=== PATIENT | male | born 1940 | race Caucasian/White ===

== ENCOUNTER 2017-06-30 09:31 | Emergency (ER) | payer MEDICARE ==
[~2017-06-30] VITALS: Ht 167.6 cm; Wt 77.0 kg
[~2017-06-30 09:31] MED LIST: KONS520C PO; LEVO50TA51 PO; LOVA40TA OR; TAB-TAB PO; TERA5CAP34 PO
[2017-06-30 09:35] VITALS: BP 123/62; PULSE 54; RESP 18; TEMP 97; O2SAT 99
[2017-06-30] MEDS ORDERED: LEVO50TA4 PO (10:04)
[2017-06-30] MEDS ORDERED: LOVA40TA PO (10:04)
[2017-06-30] MEDS ORDERED: TERA5CAP3 PO (10:04)
[2017-06-30] MEDS ORDERED: ALLO300T2 PO (10:04)
[2017-06-30 10:38] LABS: AUTOMATED NEUTROPHIL # 9.9 TH/MM3 (1.8-7.7); BASOPHIL # 1.1 TH/MM3 (0-0.2); BASOPHIL % 8.8 % (0.0-2.0); EOSINOPHIL % 0.2 % (0.0-4.0); LYMPH % 6.5 % (9.0-44.0); LYMPHOCYTE # 0.8 TH/MM3 (1.0-4.8); MEAN CELL VOLUME 87.6 FL (80.0-100.0); MEAN CORPUSCULAR HEMOGLOBIN 29.9 PG (27.0-34.0); MEAN CORPUSCULAR HGB CONC 34.1 % (32.0-36.0); MEAN PLATELET VOLUME 7.8 FL (7.0-11.0); MONO % 4.6 % (0.0-8.0); MONOCYTE # 0.6 TH/MM3 (0-0.9); NEUT % 79.9 % (16.0-70.0); PLATELET COUNT 207 TH/MM3 (150-450); RED BLOOD COUNT 4.68 MIL/MM3 (4.50-5.90); RED CELL DISTRIBUTION WIDTH 13.2 % (11.6-17.2); WHITE BLOOD COUNT 12.4 TH/MM3 (4.0-11.0)
[2017-06-30 10:44] LABS: BILIRUBIN, URINE NEG (NEG); BLOOD, URINE TRACE (NEG); GLUCOSE,URINE NEG (NEG); KETONE, URINE NEG (NEG); NITRITE,URINE NEG (NEG); PH, URINE 5.5 (5.0-8.5); URINE LEUKOCYTE ESTERASE NEG (NEG)
[2017-06-30 10:46] LABS: CHLORIDE 105 MEQ/L (98-107); SODIUM (NA) 137 MEQ/L (136-145)
[2017-06-30 10:50] LABS: HYALINE CAST, URINE 0-2 /lpf (RARE); MUCUS URINE FEW /lpf (OCC); URINE COLOR YELLOW (YELLW/STRAW)
[2017-06-30 10:50] LABS: CALCIUM 8.7 MG/DL (8.5-10.1)
[2017-06-30 10:51] LABS: ALBUMIN 4.1 GM/DL (3.4-5.0); BICARBONATE 25.4 MEQ/L (21.0-32.0); BLOOD UREA NITROGEN 28 MG/DL (7-18); GLUCOSE,RANDOM 141 MG/DL (74-106)
[2017-06-30 10:52] LABS: BACTERIA, URINE FEW /hpf; SQUAMOUS EPITHELIAL CELL URINE 0-5 /hpf (0-5); WBC, URINE 0-2 /hpf (0-5)
[2017-06-30 10:53] LABS: ALT (GPT) 24 U/L (12-78); AST (GOT) 30 U/L (15-37)
[2017-06-30 10:54] LABS: GLOMERULAR FILTRATION RATE 32 ML/MIN (>89)
[2017-06-30 10:55] LABS: TOTAL BILIRUBIN ADULT 0.5 MG/DL (0.2-1.0); TOTAL PROTEIN 7.5 GM/DL (6.4-8.2)
[2017-06-30 10:56] LABS: ALKALINE PHOSPHATASE 88 U/L (45-117)
[2017-06-30] MEDS ORDERED: ONDANSETRON HCL 4 MG/2 ML VIAL IV PUSH ONE (11:00)
[2017-06-30] MEDS ORDERED: SODIUM CHLORID 0.9% 500 ML INJ 500 ML IV ONE (11:00)
[2017-06-30 11:02] LABS: BANDS 5 % (0-6); LYMPHOCYTES 8 % (9-44); MONOCYTES 7 % (0-8); NEUTROPHIL # MANUAL DIFF 10.5 TH/MM3 (1.8-7.7); POLYS (SEG NEUTROPHILS) 80 % (16-70)
[2017-06-30 11:05] VITALS: BP 125/63; PULSE 52; RESP 16; O2SAT 98
--- NOTE | 2017-06-30 11:11 | PD ---
HPI Chief Complaint: Abdominal Pain Time Seen by Provider: 10:50 Travel History International Travel<30 days: No Contact w/Intl Traveler<30days: No Traveled to known affect area: No History of Present Illness HPI 76 year old male presents to ED for evaluation of 1010 diffuse crampy abdominal pain onset 0200 today which woke patient from sleep associated with nausea and vomiting X 6 episodes today. The patient had underwent a colonoscopy yesterday with no concerning findings per the patients . After the procedure , the patient went home and ate porkchop, mashed potatoes with gravy, corn and prunes which is a normal meal for him. ate same meal at home with no illness. He denies hematochezia, chest pain, diarrhea and melena. He has been passing gas rectally and has small BM this morning which was normal. He has had similar pain like this in the past which is relieved with defecation. He also has had a non productive cough onset last night, no fevers. Risk Factors:Colonoscopy yesterday Modifying Factors:[None] Associated sign and symptoms: Abdominal pain with nausea/vomiting. PFSH Past Medical History Arthritis: Yes Cancer: Yes ( SKIN, RIGHT ARM) High Cholesterol: Yes Diabetes: No Diminished Hearing: No Gout: Yes Hiatal Hernia: No Hypertension: Yes Thyroid Disease: Yes Influenza Vaccination: Yes Past Surgical History Abdominal Surgery: Yes (APPEND.) Appendectomy: Yes Cardiac Surgery: No Ear Surgery: No Eye Surgery: Yes Genitourinary Surgery: Yes (RIGHT NEPHRECTOMY) Oral Surgery: Yes (DENTAL SX) Pacemaker: No Thoracic Surgery: No Other Surgery: Yes Social History Alcohol Use: No (FORMERLY) Tobacco Use: No Substance Use: No Allergies-Medications (Allergen,Severity, Reaction): Coded Allergies: acetaminophen (Verified Allergy, Unknown, Patient denies , 06/30/17) Sulfa (Sulfonamide Antibiotics) (Verified Adverse Reaction, Severe, Urinary retention, 06/30/17) amoxicillin (Verified Adverse Reaction, Severe, Urinary retention , 06/30/17 ) codeine (Verified Adverse Reaction, Severe, Urinary retention , 06/30/17) diphenhydramine (Verified Adverse Reaction, Severe, Urinary retention , 06/30/17) oxycodone (Verified Adverse Reaction, Severe, "Wigs out", 06/30/17) valdecoxib (Verified Adverse Reaction, Severe, Urinary retention , 06/30/17) clavulanic acid (Verified Adverse Reaction, Unknown, 06/30/17) states from antibiotic eye gtt Reported Meds & Prescriptions Reported Meds & Active Scripts Active Zofran Odt (Ondansetron Odt) 4 Mg Tab 4 Mg SL Q6HR PRN Reported Allopurinol 300 Mg Tab 300 Mg PO DAILY Lovastatin 40 Mg Tab 40 Mg PO DAILY Levothyroxine (Levothyroxine Sodium) 50 Mcg Tab 50 Mcg PO DAILY Terazosin (Terazosin HCl) 5 Mg Cap 5 Mg PO HS Review of Systems Except as stated in HPI: all other systems reviewed are Neg Physical Exam Narrative GENERAL: Elderly man in mild distress in ED, at bedside. SKIN: Warm and dry. HEAD: Atraumatic. Normocephalic. EYES: Pupils equal and round. No scleral icterus. No injection or drainage. ENT: No nasal bleeding or discharge. Mucous membranes pink and moist. NECK: Trachea midline. No JVD. CARDIOVASCULAR: Regular rate and rhythm. RESPIRATORY: No accessory muscle use. Clear to auscultation. Breath sounds equal bilaterally. GASTROINTESTINAL: Abdomen soft nondistended, tenderness to palpation to right upper abdomen, no rebound, no guarding. Hepatic and splenic margins not palpable. MUSCULOSKELETAL: Extremities without clubbing, cyanosis, or edema. No obvious deformities. NEUROLOGICAL: Awake and alert. No obvious cranial nerve deficits. Motor grossly within normal limits. Five out of 5 muscle strength in the arms and legs. Normal speech. PSYCHIATRIC: Appropriate mood and affect; insight and judgment normal. Data Data Last Documented VS Vital Signs Date Time Temp Pulse Resp B/P (MAP) Pulse Ox O2 Delivery O2 Flow Rate FiO2 06/30/17 12:25 58 16 142/73 (96) 98 Room Air 06/30/17 09:35 97.0 Orders Orders Complete Blood Count With Diff (06/30/17 10:01) Comprehensive Metabolic Panel (06/30/17 10:01) Urinalysis - C+S If Indicated (06/30/17 10:01) Iv Access Insert/Monitor (06/30/17 10:01) Oxygen Administration (06/30/17 10:01) Oximetry (06/30/17 10:01) Lipase (06/30/17 10:01) Ondansetron Inj (Zofran Inj) (06/30/17 11:00) Sodium Chlorid 0.9% 500 Ml Inj (Ns 500 M (06/30/17 11:00) Lactic Acid (06/30/17 10:53) Ct Abd/Pel W/O Iv Contrast (06/30/17 10:52) Morphine Inj (Morphine Inj) (06/30/17 11:45) Us Abdomen Gallbladder (06/30/17 12:33) Labs Laboratory Tests Test 06/30/17 10:20 06/30/17 10:35 06/30/17 11:40 White Blood Count 12.4 TH/MM3 Red Blood Count 4.68 MIL/MM3 Hemoglobin 14.0 GM/DL Hematocrit 41.0 % Mean Corpuscular Volume 87.6 FL Mean Corpuscular Hemoglobin 29.9 PG Mean Corpuscular Hemoglobin Concent 34.1 % Red Cell Distribution Width 13.2 % Platelet Count 207 TH/MM3 Mean Platelet Volume 7.8 FL Neutrophils (%) (Auto) 79.9 % Lymphocytes (%) (Auto) 6.5 % Monocytes (%) (Auto) 4.6 % Eosinophils (%) (Auto) 0.2 % Basophils (%) (Auto) 8.8 % Neutrophils # (Auto) 9.9 TH/MM3 Lymphocytes # (Auto) 0.8 TH/MM3 Monocytes # (Auto) 0.6 TH/MM3 Eosinophils # (Auto) 0.0 TH/MM3 Basophils # (Auto) 1.1 TH/MM3 CBC Comment AUTO DIFF Differential Total Cells Counted 100 Neutrophils % (Manual) 80 % Band Neutrophils % 5 % Lymphocytes % 8 % Monocytes % 7 % Neutrophils # (Manual) 10.5 TH/MM3 Differential Comment FINAL DIFF MANUAL Platelet Estimate NORMAL Platelet Morphology Comment NORMAL Red Cell Morphology Comment NORMAL Blood Urea Nitrogen 28 MG/DL Creatinine 2.00 MG/DL Random Glucose 141 MG/DL Total Protein 7.5 GM/DL Albumin 4.1 GM/DL Calcium Level 8.7 MG/DL Alkaline Phosphatase 88 U/L Aspartate Amino Transf (AST/SGOT) 30 U/L Alanine Aminotransferase (ALT/SGPT) 24 U/L Total Bilirubin 0.5 MG/DL Sodium Level 137 MEQ/L Potassium Level 4.2 MEQ/L Chloride Level 105 MEQ/L Carbon Dioxide Level 25.4 MEQ/L Anion Gap 7 MEQ/L Estimat Glomerular Filtration Rate 32 ML/MIN Lipase 219 U/L Urine Collection Type CLEAN CATCH Urine Color YELLOW Urine Turbidity CLEAR Urine pH 5.5 Urine Specific [place] 1.030 Urine Protein TRACE mg/dL Urine Glucose (UA) NEG mg/dL Urine Ketones NEG mg/dL Urine Occult Blood TRACE Urine Nitrite NEG Urine Bilirubin NEG Urine Leukocyte Esterase NEG Urine WBC 0-2 /hpf Urine Squamous Epithelial Cells 0-5 /hpf Urine Bacteria FEW /hpf Urine Hyaline Casts 0-2 /lpf Urine Mucus FEW /lpf Microscopic Urinalysis Comment CULT NOT INDICATED Lactic Acid Level 1.8 mmol/L MDM Medical Decision Making Medical Screen Exam Complete: Yes Emergency Medical Condition: Yes Medical Record Reviewed: Yes Interpretation(s) Laboratory Tests Test 06/30/17 10:20 06/30/17 10:35 06/30/17 11:40 White Blood Count 12.4 TH/MM3 (4.0-11.0) Neutrophils (%) (Auto) 79.9 % (16.0-70.0) Lymphocytes (%) (Auto) 6.5 % (9.0-44.0) Basophils (%) (Auto) 8.8 % (0.0-2.0) Neutrophils # (Auto) 9.9 TH/MM3 (1.8-7.7) Lymphocytes # (Auto) 0.8 TH/MM3 (1.0-4.8) Basophils # (Auto) 1.1 TH/MM3 (0-0.2) Neutrophils % (Manual) 80 % (16-70) Lymphocytes % 8 % (9-44) Neutrophils # (Manual) 10.5 TH/MM3 (1.8-7.7) Blood Urea Nitrogen 28 MG/DL (7-18) Creatinine 2.00 MG/DL (0.60-1.30) Random Glucose 141 MG/DL (74-106) Estimat Glomerular Filtration Rate 32 ML/MIN (>89) Urine Bacteria FEW /hpf (NONE) Urine Mucus FEW /lpf (OCC) Last 24 hours Impressions Abdomen/Pelvis CT 06/30/17 1052 Signed Impressions: Service Date/Time: Friday, June 30, 2017 11:21 - CONCLUSION: 1. Uncomplicated colonic diverticulosis. 2. Tiny calcified nonobstructing left renal calculi with the largest measuring 4 mm. 3. Tiny calcified gallstones. 4. Enlarged prostate. 5. Degenerative changes within the lumbar and lower thoracic spine. Bacilio Vital MD Differential Diagnosis Abdominal pain; colon perforation vs cholecystitis vs AAA vs gastritis vs ischemic bowel Narrative Course Lab work shows some leukocytosis but did not show UTI or other significant metabolic issues. Case was discussed with Dr. Wiley, patient's GI doctor who did the colonoscopy yesterday, and he states that concerning the abdominal pain is right-sided, a ultrasound would be warranted for further evaluation of the symptoms. HIDA scan may be considered if positive. Ultrasound did not show any signs of abnormal gallbladder wall thickening or other signs of cholecystitis. He has normal LFTs, no bilirubin elevation, and at this point, my plan would be to release him with follow-up to GI. Return for worsening in symptoms as necessary. The plan has been discussed with him he states understanding. He has been given morphine and Zofran in the ER, did not have any further vomiting episodes in the ER. Ultrasound was done which did not show any signs of cholecystitis or any signs of common bile duct dilatation. At this point, I have taught to the patient regarding findings, he states that he is feeling fairly comfortable at the moment. I have talked him about further HIDA testing and have offered to do it here in the ER versus follow-up with GI and HIDA scanning as an outpatient. The patient states at this point he is comfortable with not doing the HIDA scanning here in the ER and will talk to his GI doctor tomorrow. He should return for any worsening in pain, vomiting, and as needed. The plan was discussed with him and the risks were discussed with him he states understanding. Diagnosis Primary Impression: Abdominal pain Additional Instructions: Follow-up with your GI physician. Return for any worsening in pain, vomiting, and as needed. Med/Other Pt SpecificInfo: Prescription(s) given Scripts Ondansetron Odt (Zofran Odt) 4 Mg Tab 4 MG SL Q6HR Y for Nausea/Vomiting, #7 TAB 0 Refills Prov: Hilary Lozano MD 06/30/17 Disposition: 01 DISCHARGE HOME Condition: Stable Hilary Lozano MD Jun 30, 2017 11:11
--- NOTE | 2017-06-30 11:39 | RADRPT ---
EXAM DATE/TIME: 06/30/2017 11:21 [facility] COMPARISON: No previous studies available for comparison. INDICATIONS : Mid abdominal pain radiating across abdomen with nausea. Status post colonoscopy yesterday. ORAL CONTRAST: No oral contrast ingested. RADIATION DOSE: 12.36 CTDIvol (mGy) MEDICAL HISTORY : Hypercholesterolemia. Hypertension. Right renal cancer. Enlarged prostate. SURGICAL HISTORY : Appendectomy. Nephrectomy, right. ENCOUNTER: Initial ACUITY: 2 days PAIN SCALE: 4/10 LOCATION: abdomen TECHNIQUE: Volumetric scanning of the abdomen and pelvis was performed. Using automated exposure control and ad justment of the mA and/or kV according to patient size, radiation dose was kept as low as reasonably achievable to obtain optimal diagnostic quality images. DICOM format image data is available electro nically for review and comparison. FINDINGS: LOWER LUNGS: The visualized lower lungs are clear. Calcified granuloma is noted within the left lower lobe. LIVER: Homogeneous density without lesion. There is no dilation of the biliary tree. Tiny gallstones are no justo within the gallbladder lumen. SPLEEN: Scattered calcified granulomas are noted. PANCREAS: Within normal limits. KIDNEYS: The patient status post right nephrectomy. Tiny calcified nonobstructing left renal calculi are noted with the largest measuring 4 mm. There is no mass or hydronephrosis on the left. ADRENAL GLANDS: Within normal limits. VASCULAR: There is no aortic aneurysm. BOWEL/MESENTERY: Uncomplicated colonic diverticulosis is noted. No acute diverticulitis is noted. ABDOMINAL WALL: Within normal limits. RETROPERITONEUM: There is no lymphadenopathy. BLADDER: No wall thickening or mass. REPRODUCTIVE: The prostate gland is enlarged. INGUINAL: There is no lymphadenopathy or hernia. MUSCULOSKELETAL: Degenerative changes are noted throughout the thoracic and lumbar spine. CONCLUSION: 1. Uncomplicated colonic diverticulosis. 2. Tiny calcified nonobstructing left renal calculi with the largest measuring 4 mm. 3. Tiny calcified gallstones. 4. Enlarged prostate. 5. Degenerative changes within the lumbar and lower thoracic spine. Bacilio Vital MD on June 30, 2017 at 11:30 Board Certified Radiologist. This report was verified electronically.
[2017-06-30] MEDS ORDERED: MORPHINE SULFATE 2 MG/ML INJ IV PUSH ONE (11:45)
[2017-06-30 12:25] VITALS: BP 142/73; PULSE 58; RESP 16; O2SAT 98
--- NOTE | 2017-06-30 14:04 | RADRPT ---
EXAM DATE/TIME: 06/30/2017 13:04 [facility] COMPARISON: CT ABDOMEN & PELVIS W/O CONTRAST, June 30, 2017, 11:21. INDICATIONS : Nausea and vomiting. MEDICAL HISTORY : Hypercholesterolemia. Hypertension. Right kidney cancer. Skin cancer. Arthritis. SURGICAL HISTORY : Appendectomy. Nephrectomy, right. ENCOUNTER: Initial ACUITY: 1 day PAIN SCORE: 0/10 LOCATION: Right upper quadrant MEASUREMENTS: LIVER: 12.9 cm length COMMON DUCT: 5 mm RIGHT KIDNEY: Surgically removed. FINDINGS: Ultrasound of the upper abdomen demonstrates normal echogenicity of the liver. No intrahepatic or ext ra hepatic ductal dilatation is seen. There is hepatopedal flow through the portal vein. The visuali zed portion of the pancreas is unremarkable. There are small stones and sludge within the gallbladder without wall thickening or pericholecystic fluid. The right kidney is surgically absent. CONCLUSION: 1. Cholelithiasis. Radionuclide imaging is recommended for further evaluation if clinically indicated . Jimi Mcnair MD on June 30, 2017 at 13:59 Board Certified Radiologist. This report was verified electronically.
[2017-06-30] MEDS ORDERED: ZOFR4TAB3 SL (14:13)
[2017-06-30 15:00] VITALS: BP 120/68
== END 2017-06-30 15:04 | disposition home or self-care (01) ==
LOC: PHED 09:31
DX: R10.9 Unspecified abdominal pain (principal); E78.00 Pure hypercholesterolemia, unspecified; I10 Essential (primary) hypertension; Z85.828 Personal history of other malignant neoplasm of skin; Z88.2 Allergy status to sulfonamides; Z88.5 Allergy status to narcotic agent; Z88.0 Allergy status to penicillin; Z88.8 Allergy status to other drugs, medicaments and biological substances; Z88.1 Allergy status to other antibiotic agents
CPT/HCPCS: 74176; 76705; 80053; 81001; 83605; 83690; 85007; 85027; 96361; 96374; 96375; 99285; J2270; J2405; J7040

== ENCOUNTER 2017-07-31 21:25 | Inpatient (IN) | payer MEDICARE ==
[~2017-07-31] VITALS: Ht 167.6 cm; Wt 82.9 kg
[~2017-07-31 21:25] MED LIST changes: +ALLO300T2 PO; -KONS520C PO; +LEVO50TA4 PO; -LEVO50TA51 PO; -LOVA40TA OR; +LOVA40TA PO; -TAB-TAB PO; +TERA5CAP3 PO; -TERA5CAP34 PO; +ZOFR4TAB3 SL
[2017-07-31 23:08] VITALS: BP 121/59; PULSE 55; TEMP 97.7; O2SAT 98
[2017-08-01] MEDS ORDERED: ONDANSETRON HCL 4 MG/2 ML VIAL IVP ONE (00:15)
[2017-08-01] MEDS ORDERED: MORPHINE SULFATE 4 MG/ML INJ IV PUSH ONE (00:15)
[2017-08-01 00:24] LABS: AUTOMATED NEUTROPHIL # 10.5 TH/MM3 (1.8-7.7); BASOPHIL % 0.4 % (0.0-2.0); EOSINOPHIL % 0.2 % (0.0-4.0); HEMATOCRIT 42.4 % (39.0-51.0); HEMOGLOBIN 14.5 GM/DL (13.0-17.0); LYMPH % 6.8 % (9.0-44.0); LYMPHOCYTE # 0.8 TH/MM3 (1.0-4.8); MEAN CELL VOLUME 87.9 FL (80.0-100.0); MEAN CORPUSCULAR HEMOGLOBIN 30.1 PG (27.0-34.0); MEAN CORPUSCULAR HGB CONC 34.3 % (32.0-36.0); MEAN PLATELET VOLUME 7.7 FL (7.0-11.0); MONO % 4.6 % (0.0-8.0); MONOCYTE # 0.6 TH/MM3 (0-0.9); PLATELET COUNT 194 TH/MM3 (150-450); RED BLOOD COUNT 4.83 MIL/MM3 (4.50-5.90); RED CELL DISTRIBUTION WIDTH 14.1 % (11.6-17.2); WHITE BLOOD COUNT 11.9 TH/MM3 (4.0-11.0)
--- NOTE | 2017-08-01 00:36 | PD ---
HPI Chief Complaint: GI Complaint Time Seen by Provider: 00:21 Travel History International Travel<30 days: No Contact w/Intl Traveler<30days: No Traveled to known affect area: No History of Present Illness HPI 76-year-old male patient with previous history of kidney stones, biliary colic, scheduled next week to get a cholecystectomy, here because of worsening abdominal pains which he rates at a 9 out of 10, nausea and vomiting. He states that it feels a bit like his kidney stone although he has been having these intermittent abdominal pains with the gallbladder issues as well. He denies any fevers or any other issues. Modifying Factors: None Associated Signs & Symptoms: Increased abdominal pain with nausea and vomiting Risk Factors: Biliary colic, scheduled for surgery next week PFSH Past Medical History Arthritis: Yes Cancer: Yes ( SKIN, RIGHT ARM) High Cholesterol: Yes Diabetes: No Diminished Hearing: No Gout: Yes Hiatal Hernia: No Hypertension: Yes Medical other: Yes (ENLARGED PROSTATE) Thyroid Disease: Yes Past Surgical History Abdominal Surgery: Yes (APPEND.) Appendectomy: Yes Cardiac Surgery: No Ear Surgery: No Eye Surgery: Yes ([employer]NEA TRANSPLANT) Genitourinary Surgery: Yes (RIGHT NEPHRECTOMY) Oral Surgery: Yes (DENTAL SX) Pacemaker: No Thoracic Surgery: No Other Surgery: Yes Social History Alcohol Use: No (FORMERLY) Tobacco Use: No Substance Use: No Allergies-Medications (Allergen,Severity, Reaction): Coded Allergies: acetaminophen (Verified Allergy, Unknown, Patient denies , 07/31/17) dextromethorphan (Verified Allergy, Unknown, 07/31/17) ketorolac (Verified Allergy, Unknown, 07/31/17) EYE DROPS Sulfa (Sulfonamide Antibiotics) (Verified Adverse Reaction, Severe, Urinary retention, 07/31/17) amoxicillin (Verified Adverse Reaction, Severe, Urinary retention , 07/31/17 ) codeine (Verified Adverse Reaction, Severe, Urinary retention , 07/31/17) diphenhydramine (Verified Adverse Reaction, Severe, Urinary retention , 07/31/17) oxycodone (Verified Adverse Reaction, Severe, "Wigs out", 07/31/17) valdecoxib (Verified Adverse Reaction, Severe, Urinary retention , 07/31/17) clavulanic acid (Verified Adverse Reaction, Unknown, 07/31/17) states from antibiotic eye gtt Reported Meds & Prescriptions Reported Meds & Active Scripts Active Zofran Odt (Ondansetron Odt) 4 Mg Tab 4 Mg SL Q6HR PRN Reported Allopurinol 300 Mg Tab 300 Mg PO DAILY Lovastatin 40 Mg Tab 40 Mg PO DAILY Levothyroxine (Levothyroxine Sodium) 50 Mcg Tab 50 Mcg PO DAILY Terazosin (Terazosin HCl) 5 Mg Cap 5 Mg PO HS Review of Systems Except as stated in HPI: all other systems reviewed are Neg Physical Exam Narrative GENERAL: Well-developed elderly white male patient currently moderate distress. Awake and oriented 3. SKIN: Focused skin assessment warm/dry. HEAD: Atraumatic. Normocephalic. EYES: Pupils equal and round. No scleral icterus. No injection or drainage. ENT: No nasal bleeding or discharge. Mucous membranes pink and moist. NECK: Trachea midline. No JVD. Supple. CARDIOVASCULAR: Regular rate and rhythm. No murmur appreciated. RESPIRATORY: No accessory muscle use. Clear to auscultation. Breath sounds equal bilaterally. GASTROINTESTINAL: Abdomen soft, upper abdominal tenderness without guarding or rebound, nondistended. Hepatic and splenic margins not palpable. MUSCULOSKELETAL: No obvious deformities. No clubbing. No cyanosis. No edema. NEUROLOGICAL: Awake and alert. No obvious cranial nerve deficits. Motor grossly within normal limits. Normal speech. PSYCHIATRIC: Appropriate mood and affect; insight and judgment normal. Data Data Last Documented VS Vital Signs Date Time Temp Pulse Resp B/P (MAP) Pulse Ox O2 Delivery O2 Flow Rate FiO2 08/01/17 01:08 53 16 152/73 (99) 97 Room Air 07/31/17 23:08 97.7 Orders Orders Complete Blood Count With Diff (08/01/17 00:01) Comprehensive Metabolic Panel (08/01/17 00:01) Lipase (08/01/17 00:01) Urinalysis - C+S If Indicated (08/01/17 00:01) Iv Access Insert/Monitor (08/01/17 00:01) Ecg Monitoring (08/01/17 00:01) Oximetry (08/01/17 00:01) Morphine Inj (Morphine Inj) (08/01/17 00:15) Ondansetron Inj (Zofran Inj) (08/01/17 00:15) Sodium Chloride 0.9% Flush (Ns Flush) (08/01/17 00:15) Ct Abd/Pel W/O Iv Contrast (08/01/17 00:21) Admit Order (Ed Use Only) (08/01/17 03:10) Vital Signs (Adult) Q4H (08/01/17 03:10) Diet Npo (08/01/17 Breakfast) Activity Bed Rest (08/01/17 03:10) Sodium Chlor 0.9% 1000 Ml Inj (Ns 1000 M (08/01/17 03:15) Consult Gastroenterology (08/01/17 ) Labs Laboratory Tests Test 08/01/17 00:12 White Blood Count 11.9 TH/MM3 Red Blood Count 4.83 MIL/MM3 Hemoglobin 14.5 GM/DL Hematocrit 42.4 % Mean Corpuscular Volume 87.9 FL Mean Corpuscular Hemoglobin 30.1 PG Mean Corpuscular Hemoglobin Concent 34.3 % Red Cell Distribution Width 14.1 % Platelet Count 194 TH/MM3 Mean Platelet Volume 7.7 FL Neutrophils (%) (Auto) 88.0 % Lymphocytes (%) (Auto) 6.8 % Monocytes (%) (Auto) 4.6 % Eosinophils (%) (Auto) 0.2 % Basophils (%) (Auto) 0.4 % Neutrophils # (Auto) 10.5 TH/MM3 Lymphocytes # (Auto) 0.8 TH/MM3 Monocytes # (Auto) 0.6 TH/MM3 Eosinophils # (Auto) 0.0 TH/MM3 Basophils # (Auto) 0.0 TH/MM3 CBC Comment DIFF FINAL Differential Comment Blood Urea Nitrogen 23 MG/DL Creatinine 1.90 MG/DL Random Glucose 169 MG/DL Total Protein 8.3 GM/DL Albumin 4.5 GM/DL Calcium Level 9.4 MG/DL Alkaline Phosphatase 187 U/L Aspartate Amino Transf (AST/SGOT) 1094 U/L Alanine Aminotransferase (ALT/SGPT) 581 U/L Total Bilirubin 2.2 MG/DL Sodium Level 141 MEQ/L Potassium Level 4.2 MEQ/L Chloride Level 102 MEQ/L Carbon Dioxide Level 30.9 MEQ/L Anion Gap 8 MEQ/L Estimat Glomerular Filtration Rate 34 ML/MIN Lipase 91345 U/L MDM Medical Decision Making Medical Screen Exam Complete: Yes Emergency Medical Condition: Yes Medical Record Reviewed: Yes Interpretation(s) Laboratory Tests Test 08/01/17 00:12 White Blood Count 11.9 TH/MM3 (4.0-11.0) Neutrophils (%) (Auto) 88.0 % (16.0-70.0) Lymphocytes (%) (Auto) 6.8 % (9.0-44.0) Neutrophils # (Auto) 10.5 TH/MM3 (1.8-7.7) Lymphocytes # (Auto) 0.8 TH/MM3 (1.0-4.8) Blood Urea Nitrogen 23 MG/DL (7-18) Creatinine 1.90 MG/DL (0.60-1.30) Random Glucose 169 MG/DL (74-106) Total Protein 8.3 GM/DL (6.4-8.2) Alkaline Phosphatase 187 U/L (45-117) Aspartate Amino Transf (AST/SGOT) 1094 U/L (15-37) Alanine Aminotransferase (ALT/SGPT) 581 U/L (12-78) Total Bilirubin 2.2 MG/DL (0.2-1.0) Estimat Glomerular Filtration Rate 34 ML/MIN (>89) Lipase 47528 U/L (73-393) Last 24 hours Impressions Abdomen/Pelvis CT 08/01/17 0021 Signed Impressions: Service Date/Time: Tuesday, August 01, 2017 01:15 - CONCLUSION: 1. Acute pancreatitis and duodenitis. There is edema and scattered small collections of fluid without anything organized, thickwalled or drainable. 2. Suspected cholelithiasis although a stone is not discretely visible on today's CT. No ductal dilatation is demonstrated. 3. 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 4. Sigmoid colon diverticulosis. No diverticulitis. No bowel obstruction. Mino Espinoza MD Differential Diagnosis Biliary colic versus cholecystitis versus renal colic versus other acute intra- abdominal processes Narrative Course Lab work and CAT scan is indicative of pancreatitis and duodenitis, and there is concern about gallstone pancreatitis especially considering history and lab work. IV fluids and pain medications given. Nausea medications given. Case was discussed with Dr. Cali who states that this does not appear to be a surgical issue, probably should be consulted with GI and admitted to medicine. Case was discussed with Dr. Ingram for admission. He states admit to Dr. Dillon. He asked me to put an a few transition orders and IV fluids. Diagnosis Primary Impression: Abdominal pain Additional Impression: Acute gallstone pancreatitis Admitting Information Admitting Physician Requests: it Hilary Lozano MD Aug 01, 2017 00:36
[2017-08-01 00:46] LABS: ALBUMIN 4.5 GM/DL (3.4-5.0); ALT (GPT) 581 U/L (12-78); BICARBONATE 30.9 MEQ/L (21.0-32.0); BLOOD UREA NITROGEN 23 MG/DL (7-18); CALCIUM 9.4 MG/DL (8.5-10.1); CHLORIDE 102 MEQ/L (98-107); GLOMERULAR FILTRATION RATE 34 ML/MIN (>89); GLUCOSE,RANDOM 169 MG/DL (74-106); SODIUM (NA) 141 MEQ/L (136-145)
[2017-08-01 00:53] LABS: ALKALINE PHOSPHATASE 187 U/L (45-117); AST (GOT) 1094 U/L (15-37); TOTAL BILIRUBIN ADULT 2.2 MG/DL (0.2-1.0); TOTAL PROTEIN 8.3 GM/DL (6.4-8.2)
[2017-08-01 01:08] VITALS: BP 152/73; PULSE 53; RESP 16; O2SAT 97
--- NOTE | 2017-08-01 01:46 | RADRPT ---
EXAM DATE/TIME: 08/01/2017 01:15 [facility] COMPARISON: CT ABDOMEN & PELVIS W/O CONTRAST, June 30, 2017, 11:21. INDICATIONS : Abdominal pain. ORAL CONTRAST: No oral contrast ingested. RADIATION DOSE: 10.11 CTDIvol (mGy) MEDICAL HISTORY : Renal failure, acute. Carcinoma, renal. SURGICAL HISTORY : Nephrectomy, right. Appendectomy. ENCOUNTER: Initial ACUITY: 1 day PAIN SCALE: 5/10 LOCATION: abdomen TECHNIQUE: Volumetric scanning of the abdomen and pelvis was performed. Using automated exposure control and ad justment of the mA and/or kV according to patient size, radiation dose was kept as low as reasonably achievable to obtain optimal diagnostic quality images. DICOM format image data is available electro nically for review and comparison. FINDINGS: There is edema currently seen diffusely around the pancreas. Also some wall thickening and adjacent f at stranding of the second and third portions of the duodenum. Some small fluid has collected in the right pericolic gutter and inferior to the pancreas. Nothing organized or drainable. Noncontrast appearance of the liver and gallbladder within normal limits. No ductal dilatation seen. No stones demonstrated but there does appear to be a stone or collection of small stones in the gallb ladder on the comparison CT. No acute abnormality of the spleen, adrenal glands or left kidney. Right nephrectomy changes are agai n noted. Sigmoid colon diverticulosis again seen. No diverticulitis. Nonobstructive bowel gas pattern. No sandeep jie distention. CONCLUSION: 1. Acute pancreatitis and duodenitis. There is edema and scattered small collections of fluid without anything organized, thickwalled or drainable. 2. Suspected cholelithiasis although a stone is not discretely visible on today's CT. No ductal dilat ation is demonstrated. 3. 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 4. Sigmoid colon diverticulosis. No diverticulitis. No bowel obstruction. Mino Espinoza MD on August 01, 2017 at 1:39 Board Certified Radiologist. This report was verified electronically.
[2017-08-01] MEDS ORDERED: SODIUM CHLOR 0.9% 1000 ML INJ 1,000 ML IV SCH (03:15)
[2017-08-01 05:00] VITALS: BP 151/73; PULSE 60; RESP 17; TEMP 98.5; O2SAT 97
[2017-08-01] MEDS ORDERED: ONDANSETRON HCL 4 MG/2 ML VIAL IV PUSH PRN (06:30)
[2017-08-01] MEDS ORDERED: NALOXONE HCL 0.4 MG/ML AMP IV PUSH PRN (06:30)
[2017-08-01] MEDS ORDERED: HYDROmorphone HCL 2 MG TAB PO PRN (06:30)
[2017-08-01] MEDS ORDERED: LACTATED RINGER'S 1000 ML INJ 1,000 ML IV SCH (06:45)
[2017-08-01] MEDS ORDERED: HYDROmorphone HCL PF 2 MG/ML VIAL IV PRN (07:00)
[2017-08-01 07:16] LABS: BILIRUBIN, URINE SMALL (NEG); BLOOD, URINE SMALL (NEG); GLUCOSE,URINE NEG (NEG); KETONE, URINE NEG (NEG); MUCUS URINE FEW /lpf (OCC); NITRITE,URINE NEG (NEG); PH, URINE 6.5 (5.0-8.5); URINE LEUKOCYTE ESTERASE NEG (NEG)
[2017-08-01 07:18] LABS: URINE COLOR AMBER (YELLW/STRAW)
[2017-08-01 08:00] VITALS: BP 146/71; PULSE 53; RESP 18; TEMP 98.5; O2SAT 97
--- NOTE | 2017-08-01 08:48 | PD.CONS ---
HPI Service General Surgery Consult Requested By Dr. Dillon Reason for Consult Gallstone pancreatitis, patient known to me Primary Care Physician Rubén Mcghee MD History of Present Illness Mr. Alegria is a 76-year-old male with known gallbladder disease plans to have a cholecystectomy next week. Unfortunately he developed severe abdominal pain radiating to his back yesterday associated with nausea and vomiting. He was noted to have significant elevation of lipase of 56,000 as well as mild elevation of LFTs. He had leukocytosis of 11,000 and elevated BUN and creatinine which may be chronic. CT scan of the abdomen and pelvis revealed acute pancreatitis with some associated fluid collections. The patient is status post right nephrectomy in the mid 90s. Review of Systems Constitutional: DENIES: Fever, Chills Eyes: DENIES: Eye inflammation, Eye pain Respiratory: DENIES: Cough, Shortness of breath Cardiovascular: DENIES: Chest pain, Palpitations Gastrointestinal: COMPLAINS OF: Abdominal pain, Nausea, Vomiting Integumentary: DENIES: Pruritus, Rash Neurologic: DENIES: Paresthesias, Seizures Past Family Social History Past Medical History BPH Hyperlipidemia BPH Past Surgical History Right nephrectomy via a large right flank and right subcostal incision Reported Medications Reported Meds & Active Scripts Active Zofran Odt (Ondansetron Odt) 4 Mg Tab 4 Mg SL Q6HR PRN Reported Allopurinol 300 Mg Tab 300 Mg PO DAILY Levothyroxine (Levothyroxine Sodium) 50 Mcg Tab 50 Mcg PO DAILY Terazosin (Terazosin HCl) 5 Mg Cap 5 Mg PO HS Allergies: Coded Allergies: acetaminophen (Verified Allergy, Unknown, Patient denies , 07/31/17) dextromethorphan (Verified Allergy, Unknown, 07/31/17) ketorolac (Verified Allergy, Unknown, 07/31/17) EYE DROPS Sulfa (Sulfonamide Antibiotics) (Verified Adverse Reaction, Severe, Urinary retention, 07/31/17) amoxicillin (Verified Adverse Reaction, Severe, Urinary retention , 07/31/17 ) codeine (Verified Adverse Reaction, Severe, Urinary retention , 07/31/17) diphenhydramine (Verified Adverse Reaction, Severe, Urinary retention , 07/31/17) oxycodone (Verified Adverse Reaction, Severe, "Wigs out", 07/31/17) valdecoxib (Verified Adverse Reaction, Severe, Urinary retention , 07/31/17) clavulanic acid (Verified Adverse Reaction, Unknown, 07/31/17) states from antibiotic eye gtt Active Ordered Medications Current Medications Medications (Trade) Dose Ordered Sig/Teddy Route Start Time Stop Time Status Last Admin (NS Flush) 2 ml UNSCH PRN IV FLUSH 08/01/17 00:15 (Zofran Inj) 4 mg Q6H PRN IV PUSH 08/01/17 06:30 (Dilaudid Pf Inj) 0.5MG [ DOSE CAUTION] Q3H PRN IV 08/01/17 07:00 (Dilaudid) 1 mg Q4H PRN PO 08/01/17 06:30 (Narcan Inj) 0.4 mg UNSCH PRN IV PUSH 08/01/17 06:30 Lactated Ringer's 1,000 ml @ 125 mls/hr Q8H IV 08/01/17 06:45 (Zyloprim) 300 mg DAILY PO 08/01/17 09:00 (Hytrin) 5 mg HS PO 08/01/17 21:00 (Synthroid) 50 mcg DAILY@0600 PO 08/01/17 07:00 Family History Noncontributory Social History No alcohol or tobacco use. Is . Physical Exam Vital Signs Vital Signs Date Time Temp Pulse Resp B/P (MAP) Pulse Ox O2 Delivery O2 Flow Rate FiO2 08/01/17 08:00 98.5 53 18 146/71 (96) 97 08/01/17 05:00 98.5 60 17 151/73 (99) 97 08/01/17 04:22 08/01/17 01:08 53 16 152/73 (99) 97 Room Air 07/31/17 23:08 97.7 55 121/59 (79) 98 Physical Exam GENERAL: Appears fatigued and somewhat ill. HEAD: Normocephalic. Atraumatic. EYES: Pupils equal round and reactive to light bilaterally. No scleral icterus. ENT: Moist oral mucosa. NECK: Trachea midline. CHEST: Lungs clear to auscultation bilaterally with no wheezing or rhonchi. No respiratory distress. CARDIOVASCULAR: Regular rate and rhythm. ABDOMEN: Right flank and subcostal scar. Very tender in the midabdomen and upper abdomen bilaterally. EXTREMITIES: No cyanosis or edema. SKIN: Warm, dry, nonjaundiced. Laboratory Laboratory Tests Test 08/01/17 00:12 08/01/17 05:25 White Blood Count 11.9 Red Blood Count 4.83 Hemoglobin 14.5 Hematocrit 42.4 Mean Corpuscular Volume 87.9 Mean Corpuscular Hemoglobin 30.1 Mean Corpuscular Hemoglobin Concent 34.3 Red Cell Distribution Width 14.1 Platelet Count 194 Mean Platelet Volume 7.7 Neutrophils (%) (Auto) 88.0 Lymphocytes (%) (Auto) 6.8 Monocytes (%) (Auto) 4.6 Eosinophils (%) (Auto) 0.2 Basophils (%) (Auto) 0.4 Neutrophils # (Auto) 10.5 Lymphocytes # (Auto) 0.8 Monocytes # (Auto) 0.6 Eosinophils # (Auto) 0.0 Basophils # (Auto) 0.0 CBC Comment DIFF FINAL Differential Comment Blood Urea Nitrogen 23 Creatinine 1.90 Random Glucose 169 Total Protein 8.3 Albumin 4.5 Calcium Level 9.4 Alkaline Phosphatase 187 Aspartate Amino Transf (AST/SGOT) 1094 Alanine Aminotransferase (ALT/SGPT) 581 Total Bilirubin 2.2 Sodium Level 141 Potassium Level 4.2 Chloride Level 102 Carbon Dioxide Level 30.9 Anion Gap 8 Estimat Glomerular Filtration Rate 34 Lipase 07606 Urine Color SUBHASH Urine Turbidity CLEAR Urine pH 6.5 Urine Specific [place] 1.032 Urine Protein 100 Urine Glucose (UA) NEG Urine Ketones NEG Urine Occult Blood SMALL Urine Nitrite NEG Urine Bilirubin SMALL Urine Urobilinogen 2.0 Urine Leukocyte Esterase NEG Urine RBC 1 Urine WBC LESS THAN 1 Urine Mucus FEW Microscopic Urinalysis Comment CULT NOT INDICATED Result Diagram: 08/01/17 0012 08/01/17 001 Imaging Last Impressions Abdomen/Pelvis CT 08/01/17 0021 Signed Impressions: Service Date/Time: Tuesday, August 01, 2017 01:15 - CONCLUSION: 1. Acute pancreatitis and duodenitis. There is edema and scattered small collections of fluid without anything organized, thickwalled or drainable. 2. Suspected cholelithiasis although a stone is not discretely visible on today's CT. No ductal dilatation is demonstrated. 3. 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 4. Sigmoid colon diverticulosis. No diverticulitis. No bowel obstruction. Mino Espinoza MD Cholangiopancreatography MRI 08/01/17 0000 Signed Impressions: Service Date/Time: Thursday, August 01, 2017 11:42 - CONCLUSION: 1. Findings again consistent with acute pancreatitis. 2. Moderate amount of sludge in the gallbladder. 3. Intrahepatic and extrahepatic biliary ducts within normal limits. Oniel Alonzo MD Assessment and Plan Assessment and Plan 76 yo M known to me as outpatient with planned cholecystectomy next week now with gallstone pancreatitis and elevated LFTs, possible choledocholithiasis. MRCP. Start levaquin/flagyl as he has leukocytosis and possible choledocholithiasis. Will not need cholecystectomy until this is fully resolved. Pancreatitis appears fairly severe on CT and he will need to be closely monitored. Mick Cali MD Aug 01, 2017 08:48
[2017-08-01] MEDS: ALLOPURINOL 300 MG TAB PO SCH (08:59)
[2017-08-01] MEDS: LEVOTHYROXINE SODIUM 50 MCG TAB PO SCH (09:00)
[2017-08-01] MEDS ORDERED: LEVOTHYROXINE SODIUM 50 MCG TAB PO SCH (09:00)
--- NOTE | 2017-08-01 09:12 | MH ---
cc: Jus Ingram MD DATE OF ADMISSION: 08/01/2017 ADMISSION DIAGNOSES: 1. Gallstone pancreatitis. 2. Elevated liver function test, could be secondary to statin drug and/or choledocholithiasis. 3. Possible choledocholithiasis. 4. Hyperlipidemia. 5. Hypothyroidism. 6. Benign prostatic hyperplasia. 7. Osteoarthritis. PERTINENT HISTORY: This is pleasant 76-year-old white male who came to the emergency room last night after he starting having some nausea, vomiting, and upper abdominal pain that radiated into his back. He has been diagnosed with gallstones and was seen by a surgeon earlier this week on Thursday and has been scheduled for an elective cholecystectomy on 08/07/2017. He had seen Dr. Cali. He, however, came in to the ED last night with symptoms and had a markedly elevated lipase level of 56,000. He had mild elevation of his total bilirubin, as well as elevated AST, ALT and alkaline phosphatase. He has not vomited any since he was in the emergency room. He still has some pain in his abdomen that radiates into his back. No other acute complaints. No fever, chills or sweats. PAST MEDICAL HISTORY: He has BPH that he takes terazosin for. He has hyperlipidemia. He is on lovastatin. He has hypothyroidism. He denies having hypertension. Denies any history of stroke or diabetes. Denies any liver disease that he is aware of. He has had some chronic renal insufficiency and sees Dr. Marte. He had his right kidney removed in 1994 for a large cyst. He has osteoarthritis. He has gout. 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 PAST SURGICAL HISTORY: He has had an appendectomy around age 12, right nephrectomy for a large cyst in 1994 and a colonoscopy 06/30/2017. He states there were no polyps. He has had bilateral lens implants. He has had a right corneal transplant in 2012. He had a melanoma removed from the right arm. ALLERGIES: SULFA, AMOXICILLIN, CODEINE, OXYCODONE, KETOROLAC. MEDICATION: He is on terazosin 5 mg at bedtime, allopurinol 300 mg a day, lovastatin 40 mg a day, levothyroxine 50 mcg daily. FAMILY HISTORY: His father at 79 of old age. He did not know what was the cause otherwise. Mom at 55 of cancer. ' SOCIAL HISTORY: He has never smoked. He has not had any alcohol since 1993. 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 REVIEW OF SYSTEMS: GENERAL: No fever, chills or sweats. HEENT: Without complaints. CARDIOVASCULAR: No chest pain, orthopnea, PND. PULMONARY: No cough, hemoptysis, wheezing. GASTROINTESTINAL: As mentioned, no melena or rectal bleeding. No hematemesis. GENITOURINARY: Without dysuria or hematuria. EXTREMITIES: Without swelling. NEUROLOGIC: Without headache or focal complaints. PHYSICAL EXAMINATION: GENERAL: Pleasant white male, in no significant distress. VITAL SIGNS: Temperature is 98.5, pulse 60, respirations 17, blood pressure 151/73, pulse ox 97% on room air. HEENT: Pupils equal. Sclerae nonicteric. Nose without lesion. Mouth without inflammation or lesion. He has no teeth. NECK: Without bruit. No JVD. HEART: Regular rate and rhythm. No murmur. LUNGS: Clear. ABDOMEN: Soft with mild tenderness across the mid abdomen. No rebound or guarding. EXTREMITIES: No edema. Pulses are palpated in the feet. SKIN: Negative. NEUROLOGIC: Oriented x 3. Cranial nerves, motor, sensory intact. LABORATORY STUDIES: White count was 11.9, hemoglobin 14.5, platelets were normal. His BUN was 23, creatinine 1.9, random glucose 169, GFR 34, calcium 9.4, total bilirubin 2.2, AST 1094, ALT 581, alkaline phosphatase 187, total protein 8.3, albumin 4.5, and lipase 56,593. Urinalysis result is pending. IMAGING STUDIES: CT scan of the abdomen showed edema diffusely around the pancreas. There was some duodenitis, diverticulosis. Apparently there were stones in the gallbladder on the comparison CT scan. The noncontrast appearance of the liver and gallbladder was noted to be normal with no ductal dilatation. He has had prior right nephrectomy. ASSESSMENT: As noted. PLAN: He will be maintained n.p.o. for now and his lipase will be monitored. We will consult gastroenterology. We will hold his lovastatin and see if his liver enzymes will improve with that. He may have to have evaluation for common duct stones in view of marked elevated liver enzymes and mild elevation of his bilirubin and alkaline phosphatase. We will maintain him on some IV fluids for now. We will use SCDs and DEONTE hose for DVT prophylaxis. MD CANDICE Cannon/TAMMY , 06:23 AM , 09:11 AM
[2017-08-01 09:16] LABS: AUTOMATED NEUTROPHIL # 9.3 TH/MM3 (1.8-7.7); BASOPHIL % 0.1 % (0.0-2.0); HEMATOCRIT 38.2 % (39.0-51.0); HEMOGLOBIN 13.2 GM/DL (13.0-17.0); LYMPH % 7.3 % (9.0-44.0); LYMPHOCYTE # 0.8 TH/MM3 (1.0-4.8); MEAN CORPUSCULAR HGB CONC 34.5 % (32.0-36.0); MEAN PLATELET VOLUME 7.8 FL (7.0-11.0); MONO % 5.9 % (0.0-8.0); MONOCYTE # 0.6 TH/MM3 (0-0.9); NEUT % 86.7 % (16.0-70.0); PLATELET COUNT 175 TH/MM3 (150-450); RED BLOOD COUNT 4.39 MIL/MM3 (4.50-5.90); RED CELL DISTRIBUTION WIDTH 14.3 % (11.6-17.2); WHITE BLOOD COUNT 10.7 TH/MM3 (4.0-11.0)
--- NOTE | 2017-08-01 09:22 | PD.CONS ---
HPI History of Present Illness This is a 76 year old male patient with previous history of kidney cancer s/p right nephrectomy, kidney stones, biliary colic,gallstones scheduled next week for an elective cholecystectomy presents to [facility] for severe abdominal pains which he rates at a 10 out of 10, nausea and vomiting. The pain starts in the back and wrap across the entire abd, very painful upon palpation started around 4 pm, then followed by N/V around 6 pm. work up revealed elevated LFTs, lipase, and mild leukocytosis. CT w/out contrast showed acute pancreatitis and duodenitis, suspected cholelithiasis, right nephrectomy and sigmoid diverticulosis. GS already on the case, MRCP ordered, pt is NPO. No previous history of pancreatitis, no alcohol intake. (Sulma Balderrama) PFSH Past Medical History High Cholesterol High Cholesterol Kidney cancer s/p right nephrectomy Gallstones Kidney stones melanoma Past Surgical History Right nephrectomy (Sulma Balderrama) Coded Allergies: acetaminophen (Verified Allergy, Unknown, Patient denies , 07/31/17) dextromethorphan (Verified Allergy, Unknown, 07/31/17) ketorolac (Verified Allergy, Unknown, 07/31/17) EYE DROPS Sulfa (Sulfonamide Antibiotics) (Verified Adverse Reaction, Severe, Urinary retention, 07/31/17) amoxicillin (Verified Adverse Reaction, Severe, Urinary retention , 07/31/17 ) codeine (Verified Adverse Reaction, Severe, Urinary retention , 07/31/17) diphenhydramine (Verified Adverse Reaction, Severe, Urinary retention , 07/31/17) oxycodone (Verified Adverse Reaction, Severe, "Wigs out", 07/31/17) valdecoxib (Verified Adverse Reaction, Severe, Urinary retention , 07/31/17) clavulanic acid (Verified Adverse Reaction, Unknown, 07/31/17) states from antibiotic eye gtt Medications Current Medications Medications (Trade) Dose Ordered Sig/Teddy Route Start Time Stop Time Status Last Admin (NS Flush) 2 ml UNSCH PRN IV FLUSH 08/01/17 00:15 (Zofran Inj) 4 mg Q6H PRN IV PUSH 08/01/17 06:30 (Dilaudid Pf Inj) 0.5MG [ DOSE CAUTION] Q3H PRN IV 08/01/17 07:00 (Dilaudid) 1 mg Q4H PRN PO 08/01/17 06:30 (Narcan Inj) 0.4 mg UNSCH PRN IV PUSH 08/01/17 06:30 Lactated Ringer's 1,000 ml @ 125 mls/hr Q8H IV 08/01/17 06:45 (Zyloprim) 300 mg DAILY PO 08/01/17 09:00 (Hytrin) 5 mg HS PO 08/01/17 21:00 (Synthroid) 50 mcg DAILY@0600 PO 08/01/17 07:00 (Xanax) 0.5 mg ONCE ONCE PO 08/01/17 08:45 08/01/17 08:46 UNV Levofloxacin/ Dextrose 150 ml @ 100 mls/hr Q24H IV 08/01/17 09:00 UNV Metronidazole 100 ml @ 100 mls/hr Q6H IV 08/01/17 09:00 UNV Family History mother had cancer with mets, primary source unknown Social History No alcohol No smoking (Sulma Balderrama) Review of Systems Constitutional: COMPLAINS OF: Fatigue Endocrine: DENIES: Polyuria Eyes: DENIES: Double Vision Ears, nose, mouth, throat: DENIES: Hoarseness Respiratory: DENIES: Shortness of breath Cardiovascular: DENIES: Lower Extremity Edema Gastrointestinal: COMPLAINS OF: Abdominal pain, Nausea, Vomiting, DENIES: Black stools, Bloody stools, Constipation, Diarrhea, Difficulty Swallowing, Anorexia, Odynophagia, Swelling of Abdomen, Heartburn, Hematemesis Genitourinary: DENIES: Hematuria Musculoskeletal: COMPLAINS OF: Back pain Integumentary: DENIES: Jaundice Hematologic/lymphatic: DENIES: Bruising Immunologic/allergic: DENIES: Eczema Neurologic: DENIES: Abnormal gait Psychiatric: DENIES: Anxiety (Sulma Balderrama) GI Exam Vitals I&O Vital Signs Date Time Temp Pulse Resp B/P (MAP) Pulse Ox O2 Delivery O2 Flow Rate FiO2 08/01/17 08:00 98.5 53 18 146/71 (96) 97 08/01/17 05:00 98.5 60 17 151/73 (99) 97 08/01/17 04:22 08/01/17 01:08 53 16 152/73 (99) 97 Room Air 07/31/17 23:08 97.7 55 121/59 (83) 98 I/O 07/31/17 07/31/17 07/31/17 08/01/17 08/01/17 08/01/17 07:00 15:00 23:00 07:00 15:00 23:00 Intake Total 0 ml Balance 0 ml Intake Oral 0 ml Imaging Last Impressions Abdomen/Pelvis CT 08/01/17 0021 Signed Impressions: Service Date/Time: Tuesday, August 01, 2017 01:15 - CONCLUSION: 1. Acute pancreatitis and duodenitis. There is edema and scattered small collections of fluid without anything organized, thickwalled or drainable. 2. Suspected cholelithiasis although a stone is not discretely visible on today's CT. No ductal dilatation is demonstrated. 3. 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 4. Sigmoid colon diverticulosis. No diverticulitis. No bowel obstruction. Mino Espinoza MD Laboratory Test 08/01/17 00:12 08/01/17 05:25 08/01/17 08:49 White Blood Count 11.9 TH/MM3 Red Blood Count 4.83 MIL/MM3 Hemoglobin 14.5 GM/DL Hematocrit 42.4 % Mean Corpuscular Volume 87.9 FL Mean Corpuscular Hemoglobin 30.1 PG Mean Corpuscular Hemoglobin Concent 34.3 % Red Cell Distribution Width 14.1 % Platelet Count 194 TH/MM3 Mean Platelet Volume 7.7 FL Neutrophils (%) (Auto) 88.0 % Lymphocytes (%) (Auto) 6.8 % Monocytes (%) (Auto) 4.6 % Eosinophils (%) (Auto) 0.2 % Basophils (%) (Auto) 0.4 % Neutrophils # (Auto) 10.5 TH/MM3 Lymphocytes # (Auto) 0.8 TH/MM3 Monocytes # (Auto) 0.6 TH/MM3 Eosinophils # (Auto) 0.0 TH/MM3 Basophils # (Auto) 0.0 TH/MM3 CBC Comment DIFF FINAL Differential Comment Blood Urea Nitrogen 23 MG/DL Creatinine 1.90 MG/DL Random Glucose 169 MG/DL Total Protein 8.3 GM/DL Albumin 4.5 GM/DL Calcium Level 9.4 MG/DL Alkaline Phosphatase 187 U/L Aspartate Amino Transf (AST/SGOT) 1094 U/L Alanine Aminotransferase (ALT/SGPT) 581 U/L Total Bilirubin 2.2 MG/DL Sodium Level 141 MEQ/L Potassium Level 4.2 MEQ/L Chloride Level 102 MEQ/L Carbon Dioxide Level 30.9 MEQ/L Anion Gap 8 MEQ/L Estimat Glomerular Filtration Rate 34 ML/MIN Lipase 21318 U/L Urine Color SUBHASH Urine Turbidity CLEAR Urine pH 6.5 Urine Specific [place] 1.032 Urine Protein 100 mg/dL Urine Glucose (UA) NEG mg/dL Urine Ketones NEG mg/dL Urine Occult Blood SMALL Urine Nitrite NEG Urine Bilirubin SMALL Urine Urobilinogen 2.0 MG/DL Urine Leukocyte Esterase NEG Urine RBC 1 /hpf Urine WBC LESS THAN 1 /hpf Urine Mucus FEW /lpf Microscopic Urinalysis Comment CULT NOT INDICATED Physical Examination HEENT: normocephalic; atraumatic; no jaundice. NECK: Neck is supple, no JVD, no lymphadenopathy. CHEST: Chest is clear to auscultation and percussion. CARDIAC: Regular rate and rhythm with no murmur gallop or rubs. ABDOMEN: Soft, nondistended, diffused abd pain ; no hepatosplenomegaly; bowel sounds are present in all four quadrants. EXTREMITIES: No clubbing, cyanosis, or edema. SKIN: Normal; no rash; no jaundice. INSERTING OPERATOR: No focal deficits; alert and oriented times three. (Sulma Balderrama) Assessment and Plan Plan - Acute gallstones pancreatitis- Possible choledocholithiasis, MRCP ordered, pt is NPO Pt with hx of biliary colic,gallstones scheduled next week for an elective cholecystectomy presents to [facility] for severe abdominal pains which he rates at a 10 out of 10, nausea and vomiting. The pain starts in the back and wrap across the entire abd, very painful upon palpation started around 4 pm, then followed by N/V around 6 pm. work up revealed elevated LFTs, lipase, and mild leukocytosis. CT w/out contrast showed acute pancreatitis and duodenitis, suspected cholelithiasis, right nephrectomy and sigmoid diverticulosis. GS already on the case. No previous history of pancreatitis, no alcohol intake. - Elevated LFTs- obstructive pattern, possible choledocholithiasis, MRCP ordered AST 1094, [id number], ALP 187, bili 2.2, lipase 50360, repeat labs pending - Leukocytolysis- secondary to above, afebrile on Levofloxacin and Flagyl - Biliary colic- was scheduled next week for an elective cholecystectomy Plan: - NPO - Aggressive hydration - Pain meds and antiemetic meds - MRCP, and pending results, pt might need ERCP - GS on the case - Monitor labs - Supportive care - Patient seen and examined by Dr. Medley and myself and this note is written on his behalf. (Sulma Balderrama) Physician Comments Seen and examined with Sulma. Plan as above. Will check MRCP, likely will need ERCP thursday. Will follow up with you. Thank you for the consult. (Pearl Medley MD) Sulma Balderrama Aug 01, 2017 09:22 Pearl Medley MD Aug 01, 2017 12:13
[2017-08-01] MEDS ORDERED: ALPRAZolam 0.5 MG TAB PO ONE (09:30)
[2017-08-01 09:45] LABS: ALBUMIN 3.8 GM/DL (3.4-5.0); BICARBONATE 26.3 MEQ/L (21.0-32.0); CALCIUM 8.4 MG/DL (8.5-10.1); CREATININE 1.84 MG/DL (0.60-1.30); DIRECT BILIRUBIN ADULT 1.5 MG/DL (0.0-0.2); TOTAL BILIRUBIN ADULT 2.5 MG/DL (0.2-1.0); TOTAL PROTEIN 6.9 GM/DL (6.4-8.2)
[2017-08-01] MEDS: metroNIDAZOLE 500 MG INJ 100 ML IV SCH ×3 (09:53→21:32)
[2017-08-01] MEDS: LEVOFLOXACIN 750 MG PREMIX INJ 150 ML IV SCH (11:08)
[2017-08-01 12:00] VITALS: BP 161/76; PULSE 54; RESP 17; TEMP 99.9; O2SAT 96
--- NOTE | 2017-08-01 13:00 | RADRPT ---
EXAM DATE/TIME: 08/01/2017 11:42 [facility] COMPARISON: US ABDOMEN - GALLBLADDER, June 30, 2017, 13:04. CT ABDOMEN & PELVIS W/O CONTRAST, August 01, 2017 , 1:15. INDICATIONS : Pancreatitis. MEDICAL HISTORY : Hypertension. Renal insufficiency, chronic. Arthritis. SURGICAL HISTORY : Nephrectomy, right. Appendectomy. ENCOUNTER: Initial ACUITY: 1 day PAIN SCORE: 4/10 LOCATION: Abdomen. TECHNIQUE: Multiplanar, multisequence magnetic resonance imaging of the abdomen was performed. High-resolution 3D dataset was utilized to reconstruct maximum-intensity projection (MIP) images. FINDINGS: INTRAHEPATIC BILE DUCTS: Within normal limits. No significant anatomical variant is present. EXTRAHEPATIC BILE DUCTS: The common bile duct measures 4 mm. No stone or filling defect is identified. GALLBLADDER: Moderate amount of sludge in the gallbladder. Wall thickness within normal limits. No discrete stones identified. LIVER: Normal size and signal intensity. No concerning liver lesion is identified on this non-contrast exam. PANCREAS: Diffuse peripancreatic edema indicating pancreatitis. No organized fluid collections identified. Panc reatic duct grossly normal in diameter. OTHER: The remaining visualized structures demonstrate no acute abnormality on this non-contrast exam. CONCLUSION: 1. Findings again consistent with acute pancreatitis. 2. Moderate amount of sludge in the gallbladder. 3. Intrahepatic and extrahepatic biliary ducts within normal limits. Oniel Alonzo MD on August 01, 2017 at 12:53 Board Certified Radiologist. This report was verified electronically.
--- NOTE | 2017-08-01 13:35 | HHI.PR ---
Subjective Remarks Pt still having significant abd pain and nausea. He just returned from [facility] His last BM was last night Tmax 99.9 today Objective Vitals Vital Signs Date Time Temp Pulse Resp B/P (MAP) Pulse Ox O2 Delivery O2 Flow Rate FiO2 08/01/17 12:00 99.9 54 17 161/76 (104) 96 08/01/17 08:00 98.5 53 18 146/71 (96) 97 08/01/17 05:00 98.5 60 17 151/73 (99) 97 08/01/17 04:22 08/01/17 01:08 53 16 152/73 (99) 97 Room Air 07/31/17 23:08 97.7 55 121/59 (79) 98 08/01/17 08/01/17 08/02/17 15:00 23:00 07:00 Intake Total 0 ml Balance 0 ml Intake Oral 0 ml Result Diagram: 08/01/17 0849 08/01/17 0849 Other Results Laboratory Tests Test 08/01/17 00:12 08/01/17 05:25 08/01/17 08:49 White Blood Count 11.9 TH/MM3 10.7 TH/MM3 Red Blood Count 4.83 MIL/MM3 4.39 MIL/MM3 Hemoglobin 14.5 GM/DL 13.2 GM/DL Hematocrit 42.4 % 38.2 % Mean Corpuscular Volume 87.9 FL 87.0 FL Mean Corpuscular Hemoglobin 30.1 PG 30.0 PG Mean Corpuscular Hemoglobin Concent 34.3 % 34.5 % Red Cell Distribution Width 14.1 % 14.3 % Platelet Count 194 TH/MM3 175 TH/MM3 Mean Platelet Volume 7.7 FL 7.8 FL Neutrophils (%) (Auto) 88.0 % 86.7 % Lymphocytes (%) (Auto) 6.8 % 7.3 % Monocytes (%) (Auto) 4.6 % 5.9 % Eosinophils (%) (Auto) 0.2 % 0.0 % Basophils (%) (Auto) 0.4 % 0.1 % Neutrophils # (Auto) 10.5 TH/MM3 9.3 TH/MM3 Lymphocytes # (Auto) 0.8 TH/MM3 0.8 TH/MM3 Monocytes # (Auto) 0.6 TH/MM3 0.6 TH/MM3 Eosinophils # (Auto) 0.0 TH/MM3 0.0 TH/MM3 Basophils # (Auto) 0.0 TH/MM3 0.0 TH/MM3 CBC Comment DIFF FINAL DIFF FINAL Differential Comment Blood Urea Nitrogen 23 MG/DL 26 MG/DL Creatinine 1.90 MG/DL 1.84 MG/DL Random Glucose 169 MG/DL 139 MG/DL Total Protein 8.3 GM/DL 6.9 GM/DL Albumin 4.5 GM/DL 3.8 GM/DL Calcium Level 9.4 MG/DL 8.4 MG/DL Alkaline Phosphatase 187 U/L 186 U/L Aspartate Amino Transf (AST/SGOT) 1094 U/L 831 U/L Alanine Aminotransferase (ALT/SGPT) 581 U/L 637 U/L Total Bilirubin 2.2 MG/DL 2.5 MG/DL Sodium Level 141 MEQ/L 139 MEQ/L Potassium Level 4.2 MEQ/L 4.2 MEQ/L Chloride Level 102 MEQ/L 104 MEQ/L Carbon Dioxide Level 30.9 MEQ/L 26.3 MEQ/L Anion Gap 8 MEQ/L 9 MEQ/L Estimat Glomerular Filtration Rate 34 ML/MIN 36 ML/MIN Lipase 96835 U/L 23596 U/L Urine Color SUBHASH Urine Turbidity CLEAR Urine pH 6.5 Urine Specific [place] 1.032 Urine Protein 100 mg/dL Urine Glucose (UA) NEG mg/dL Urine Ketones NEG mg/dL Urine Occult Blood SMALL Urine Nitrite NEG Urine Bilirubin SMALL Urine Urobilinogen 2.0 MG/DL Urine Leukocyte Esterase NEG Urine RBC 1 /hpf Urine WBC LESS THAN 1 /hpf Urine Mucus FEW /lpf Microscopic Urinalysis Comment CULT NOT INDICATED Direct Bilirubin 1.5 MG/DL Indirect Bilirubin 1.0 MG/DL Imaging Last Impressions Abdomen/Pelvis CT 08/01/17 0021 Signed Impressions: Service Date/Time: Tuesday, August 01, 2017 01:15 - CONCLUSION: 1. Acute pancreatitis and duodenitis. There is edema and scattered small collections of fluid without anything organized, thickwalled or drainable. 2. Suspected cholelithiasis although a stone is not discretely visible on today's CT. No ductal dilatation is demonstrated. 3. 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 4. Sigmoid colon diverticulosis. No diverticulitis. No bowel obstruction. Mino Espinoza MD Cholangiopancreatography MRI 08/01/17 0000 Signed Impressions: Service Date/Time: Tuesday, August 01, 2017 11:42 - CONCLUSION: 1. Findings again consistent with acute pancreatitis. 2. Moderate amount of sludge in the gallbladder. 3. Intrahepatic and extrahepatic biliary ducts within normal limits. Oniel Alonzo MD Objective Remarks General: NAD, AAOx3 Chest: CTA Cardiac: Regular Abd: +BS, soft, mildly distended, diffusely tender Ext: No edema A/P Problem List: (1) Acute gallstone pancreatitis ICD Codes: K85.10 - Biliary acute pancreatitis without necrosis or infection Status: Acute Plan: - Pt is a 76 y/o male with hyperlipidemia, BPH, hypothyroidism and chronic renal insufficiency who presented to the ED with complaints of N/V and upper abdominal pain that radiated to his back. - Pt had been planned for outpt cholecystectomy next week with Dr. Cali - Labs at admission revealed Lipase 56,593, Tbili 2.2, AST 1094, ALT 581 - CT Abd/pelvis (08/01/17) --> Acute pancreatitis and duodenitis. There is edema and scattered small collections of fluid without anything organized, thick walled or drainable. Suspected cholelithiasis although a stone is not discretely visible on today's CT. No ductal dilatation is demonstrated. 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 Sigmoid colon diverticulosis. No diverticulitis. No bowel obstruction. - Pt was made NPO and started on IVF - GI Consulted - Pt was started on IV Levaquin and Flagyl - MRCP (08/01/17) --> Findings again consistent with acute pancreatitis. Moderate amount of sludge in the gallbladder. Intrahepatic and extrahepatic biliary ducts within normal limits. - General Surgery is following as well - Pain control PRN - Zofran PRN - Monitor labs closely - Supportive care - DVT prophylaxis with SCDs (2) Abdominal pain ICD Codes: R10.9 - Unspecified abdominal pain Status: Acute Plan: - See above Assessment and Plan Patient examined. Assessment and plan formulated with Ewa Gomez PA-C. I agree with the above. gallstone pancreatitis. gi/gen surg following aggressive ivf, pain control, npo. mrcp...cbd no sludge or stone. Ewa Gomez Aug 01, 2017 13:35 Foreign Dillon MD Aug 01, 2017 14:23
[2017-08-01] MEDS ORDERED: HYDROmorphone HCL PF 2 MG/ML VIAL IV PUSH ONE (15:00)
[2017-08-01] MEDS: SODIUM CHLOR 0.9% 1000 ML INJ 1,000 ML IV SCH ×2 (15:18→21:33)
[2017-08-01] MEDS: ONDANSETRON HCL 4 MG/2 ML VIAL IV PUSH PRN ×2 (15:19→21:33)
[2017-08-01 16:00] VITALS: BP 129/68; PULSE 73; RESP 20; TEMP 98.3; O2SAT 95
[2017-08-01 20:00] VITALS: BP 138/73; PULSE 81; RESP 18; TEMP 98.8; O2SAT 95
[2017-08-01] MEDS: HYDROmorphone HCL PF 2 MG/ML VIAL IV PUSH PRN (20:13)
[2017-08-02] VITALS: BP 182/93; PULSE 75; RESP 18; TEMP 101.6; O2SAT 95
[2017-08-02] MEDS: TERAZOSIN HCL 5 MG CAP PO SCH ×2 (01:11→20:28)
[2017-08-02] MEDS ORDERED: LISINOPRIL 10 MG TAB PO ONE (01:30)
[2017-08-02] MEDS: ACETAMINOPHEN 325 MG TAB PO PRN ×2 (01:47→16:07)
[2017-08-02] MEDS: ONDANSETRON HCL 4 MG/2 ML VIAL IV PUSH PRN ×5 (01:53→20:43)
[2017-08-02] MEDS: HYDROmorphone HCL PF 2 MG/ML VIAL IV PUSH PRN ×5 (01:54→23:40)
[2017-08-02 04:00] VITALS: BP 106/65; PULSE 94; RESP 18; TEMP 98.5; O2SAT 93
[2017-08-02] MEDS: LEVOTHYROXINE SODIUM 50 MCG TAB PO SCH (04:41)
[2017-08-02] MEDS: SODIUM CHLOR 0.9% 1000 ML INJ 1,000 ML IV SCH ×3 (04:41→20:52)
[2017-08-02] MEDS: metroNIDAZOLE 500 MG INJ 100 ML IV SCH ×4 (04:41→20:49)
[2017-08-02 07:40] LABS: AUTOMATED NEUTROPHIL # 10.7 TH/MM3 (1.8-7.7); BASOPHIL % 0.3 % (0.0-2.0); EOSINOPHIL % 0.2 % (0.0-4.0); HEMATOCRIT 36.9 % (39.0-51.0); HEMOGLOBIN 12.7 GM/DL (13.0-17.0); LYMPH % 6.3 % (9.0-44.0); LYMPHOCYTE # 0.8 TH/MM3 (1.0-4.8); MEAN CELL VOLUME 88.2 FL (80.0-100.0); MEAN CORPUSCULAR HEMOGLOBIN 30.3 PG (27.0-34.0); MEAN CORPUSCULAR HGB CONC 34.3 % (32.0-36.0); MEAN PLATELET VOLUME 7.6 FL (7.0-11.0); MONOCYTE # 0.9 TH/MM3 (0-0.9); NEUT % 86.2 % (16.0-70.0); PLATELET COUNT 133 TH/MM3 (150-450); RED BLOOD COUNT 4.18 MIL/MM3 (4.50-5.90); RED CELL DISTRIBUTION WIDTH 14.1 % (11.6-17.2); WHITE BLOOD COUNT 12.4 TH/MM3 (4.0-11.0)
[2017-08-02 08:00] VITALS: BP 121/68; PULSE 81; RESP 17; TEMP 99.1; O2SAT 95
[2017-08-02 08:43] LABS: ALBUMIN 3.2 GM/DL (3.4-5.0); BICARBONATE 24.9 MEQ/L (21.0-32.0); CALCIUM 7.3 MG/DL (8.5-10.1); CREATININE 1.78 MG/DL (0.60-1.30); DIRECT BILIRUBIN ADULT 1.2 MG/DL (0.0-0.2); INDIRECT BILIRUBIN 0.9 MG/DL (0.0-0.8); TOTAL BILIRUBIN ADULT 2.1 MG/DL (0.2-1.0)
[2017-08-02] MEDS: ALLOPURINOL 300 MG TAB PO SCH (08:45)
[2017-08-02 10:24] LABS: CALCIUM-PROTEIN CORRECTED 7.9 MG/DL (8.5-10.1)
[2017-08-02 12:00] VITALS: BP 139/70; PULSE 99; RESP 19; TEMP 97.7; O2SAT 96
--- NOTE | 2017-08-02 12:19 | HHI.PR ---
Subjective Remarks Pt reports that the pain medication is lasting about 2.5 hours but he has not been asking for it very often and the pain is severe when he waits too long No vomiting but still some nausea Pt febrile overnight with Tmax 101.6 around midnight last night He has had some belching Objective Vitals Vital Signs Date Time Temp Pulse Resp B/P (MAP) Pulse Ox O2 Delivery O2 Flow Rate FiO2 08/02/17 08:00 99.1 81 17 121/68 (85) 95 08/02/17 04:00 98.5 94 18 106/65 (79) 93 08/02/17 00:00 101.6 75 18 182/93 (122) 95 08/01/17 20:00 98.8 81 18 138/73 (94) 95 08/01/17 16:00 98.3 73 20 129/68 (88) 95 08/02/17 08/02/17 08/03/17 15:00 23:00 07:00 Intake Total 0 ml Balance 0 ml Intake Oral 0 ml Result Diagram: 08/02/1728 08/02/17727 Other Results Laboratory Tests Test 08/01/17 00:12 08/01/17 05:25 08/01/17 08:49 08/02/17 07:28 White Blood Count 11.9 TH/MM3 10.7 TH/MM3 12.4 TH/MM3 Red Blood Count 4.83 MIL/MM3 4.39 MIL/MM3 4.18 MIL/MM3 Hemoglobin 14.5 GM/DL 13.2 GM/DL 12.7 GM/DL Hematocrit 42.4 % 38.2 % 36.9 % Mean Corpuscular Volume 87.9 FL 87.0 FL 88.2 FL Mean Corpuscular Hemoglobin 30.1 PG 30.0 PG 30.3 PG Mean Corpuscular Hemoglobin Concent 34.3 % 34.5 % 34.3 % Red Cell Distribution Width 14.1 % 14.3 % 14.1 % Platelet Count 194 TH/MM3 175 TH/MM3 133 TH/MM3 Mean Platelet Volume 7.7 FL 7.8 FL 7.6 FL Neutrophils (%) (Auto) 88.0 % 86.7 % 86.2 % Lymphocytes (%) (Auto) 6.8 % 7.3 % 6.3 % Monocytes (%) (Auto) 4.6 % 5.9 % 7.0 % Eosinophils (%) (Auto) 0.2 % 0.0 % 0.2 % Basophils (%) (Auto) 0.4 % 0.1 % 0.3 % Neutrophils # (Auto) 10.5 TH/MM3 9.3 TH/MM3 10.7 TH/MM3 Lymphocytes # (Auto) 0.8 TH/MM3 0.8 TH/MM3 0.8 TH/MM3 Monocytes # (Auto) 0.6 TH/MM3 0.6 TH/MM3 0.9 TH/MM3 Eosinophils # (Auto) 0.0 TH/MM3 0.0 TH/MM3 0.0 TH/MM3 Basophils # (Auto) 0.0 TH/MM3 0.0 TH/MM3 0.0 TH/MM3 CBC Comment DIFF FINAL DIFF FINAL DIFF FINAL Differential Comment Blood Urea Nitrogen 23 MG/DL 26 MG/DL 24 MG/DL Creatinine 1.90 MG/DL 1.84 MG/DL 1.78 MG/DL Random Glucose 169 MG/DL 139 MG/DL 119 MG/DL Total Protein 8.3 GM/DL 6.9 GM/DL 6.0 GM/DL Albumin 4.5 GM/DL 3.8 GM/DL 3.2 GM/DL Calcium Level 9.4 MG/DL 8.4 MG/DL 7.3 MG/DL Alkaline Phosphatase 187 U/L 186 U/L 151 U/L Aspartate Amino Transf (AST/SGOT) 1094 U/L 831 U/L 231 U/L Alanine Aminotransferase (ALT/SGPT) 581 U/L 637 U/L 371 U/L Total Bilirubin 2.2 MG/DL 2.5 MG/DL 2.1 MG/DL Sodium Level 141 MEQ/L 139 MEQ/L 141 MEQ/L Potassium Level 4.2 MEQ/L 4.2 MEQ/L 4.1 MEQ/L Chloride Level 102 MEQ/L 104 MEQ/L 108 MEQ/L Carbon Dioxide Level 30.9 MEQ/L 26.3 MEQ/L 24.9 MEQ/L Anion Gap 8 MEQ/L 9 MEQ/L 8 MEQ/L Estimat Glomerular Filtration Rate 34 ML/MIN 36 ML/MIN 37 ML/MIN Lipase 36326 U/L 57859 U/L 3174 U/L Urine Color SUBHASH Urine Turbidity CLEAR Urine pH 6.5 Urine Specific [place] 1.032 Urine Protein 100 mg/dL Urine Glucose (UA) NEG mg/dL Urine Ketones NEG mg/dL Urine Occult Blood SMALL Urine Nitrite NEG Urine Bilirubin SMALL Urine Urobilinogen 2.0 MG/DL Urine Leukocyte Esterase NEG Urine RBC 1 /hpf Urine WBC LESS THAN 1 /hpf Urine Mucus FEW /lpf Microscopic Urinalysis Comment CULT NOT INDICATED Direct Bilirubin 1.5 MG/DL 1.2 MG/DL Indirect Bilirubin 1.0 MG/DL 0.9 MG/DL Protein Corrected Calcium 7.9 MG/DL Imaging Last Impressions Abdomen/Pelvis CT 08/01/17 0021 Signed Impressions: Service Date/Time: Tuesday, August 01, 2017 01:15 - CONCLUSION: 1. Acute pancreatitis and duodenitis. There is edema and scattered small collections of fluid without anything organized, thickwalled or drainable. 2. Suspected cholelithiasis although a stone is not discretely visible on today's CT. No ductal dilatation is demonstrated. 3. 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 4. Sigmoid colon diverticulosis. No diverticulitis. No bowel obstruction. Mino Espinoza MD Cholangiopancreatography MRI 08/01/17 0000 Signed Impressions: Service Date/Time: Tuesday, August 01, 2017 11:42 - CONCLUSION: 1. Findings again consistent with acute pancreatitis. 2. Moderate amount of sludge in the gallbladder. 3. Intrahepatic and extrahepatic biliary ducts within normal limits. Oniel Alonzo MD Objective Remarks General: NAD, AAOx3 Chest: CTA Cardiac: Regular Abd: +BS, soft, mildly distended, diffusely tender Ext: No edema A/P Problem List: (1) Acute gallstone pancreatitis ICD Codes: K85.10 - Biliary acute pancreatitis without necrosis or infection Status: Acute Plan: - Pt is a 76 y/o male with hyperlipidemia, BPH, hypothyroidism and chronic renal insufficiency who presented to the ED with complaints of N/V and upper abdominal pain that radiated to his back. - Pt had been planned for outpt cholecystectomy next week with Dr. Cali - Labs at admission revealed Lipase 56,593, Tbili 2.2, AST 1094, ALT 581 - CT Abd/pelvis (08/01/17) --> Acute pancreatitis and duodenitis. There is edema and scattered small collections of fluid without anything organized, thick walled or drainable. Suspected cholelithiasis although a stone is not discretely visible on today's CT. No ductal dilatation is demonstrated. 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 Sigmoid colon diverticulosis. No diverticulitis. No bowel obstruction. - Pt is NPO - Cont. IVF - GI following - Cont. IV Levaquin and Flagyl - MRCP (08/01/17) --> Findings again consistent with acute pancreatitis. Moderate amount of sludge in the gallbladder. Intrahepatic and extrahepatic biliary ducts within normal limits. - General Surgery is following as well - Repeat LFTs and Lipase are improving - Pain control PRN - Zofran PRN - Monitor labs closely - Supportive care - DVT prophylaxis with SCDs (2) Abdominal pain ICD Codes: R10.9 - Unspecified abdominal pain Status: Acute Plan: - See above Assessment and Plan Patient examined. Assessment and plan formulated with Ewa Gomez PA-C. I agree with the above. acute gallstone pancreatitis. lft/lipase improved still requiring alot of pain meds. npo. cont ivf. Ewa Gomez Aug 02, 2017 12:19 Foreign Dillon MD Aug 02, 2017 13:16
[2017-08-02] MEDS ORDERED: HYDROmorphone HCL PF 2 MG/ML VIAL IV PUSH ONE (13:00)
[2017-08-02 16:00] VITALS: BP 131/66; PULSE 96; RESP 20; TEMP 100.9; O2SAT 95
[2017-08-02 20:00] VITALS: BP 134/69; PULSE 74; RESP 16; TEMP 98.3; O2SAT 96
[2017-08-03] VITALS: BP 128/67; PULSE 97; RESP 16; TEMP 100.4; O2SAT 94
[2017-08-03] MEDS: LISINOPRIL 10 MG TAB PO SCH (02:12)
[2017-08-03] MEDS: ONDANSETRON HCL 4 MG/2 ML VIAL IV PUSH PRN ×6 (02:29→23:50)
[2017-08-03] MEDS: HYDROmorphone HCL PF 2 MG/ML VIAL IV PUSH PRN ×8 (02:30→23:50)
[2017-08-03] MEDS: metroNIDAZOLE 500 MG INJ 100 ML IV SCH ×4 (04:33→20:39)
[2017-08-03] MEDS: LEVOTHYROXINE SODIUM 50 MCG TAB PO SCH (05:36)
[2017-08-03] MEDS: SODIUM CHLOR 0.9% 1000 ML INJ 1,000 ML IV SCH ×3 (05:39→23:49)
[2017-08-03 08:00] VITALS: BP 146/71; PULSE 88; RESP 17; TEMP 99.7; O2SAT 94
[2017-08-03] MEDS: ALLOPURINOL 300 MG TAB PO SCH (08:56)
[2017-08-03] MEDS: LEVOFLOXACIN 750 MG PREMIX INJ 150 ML IV SCH (09:57)
[2017-08-03 12:00] VITALS: BP 139/70; PULSE 82; RESP 18; TEMP 97.5; O2SAT 94
--- NOTE | 2017-08-03 13:12 | RADRPT ---
EXAM DATE/TIME: 08/03/2017 12:50 [facility] COMPARISON: No previous studies available for comparison. INDICATIONS : Abdominal Distention MEDICAL HISTORY : Hypertension. Renal insufficiency, chronic. Arthritis. SURGICAL HISTORY : Nephrectomy, right. Appendectomy ENCOUNTER: Initial ACUITY: 3 days PAIN SCORE: 7/10 LOCATION: Abdomen FINDINGS: Surgical clips right upper quadrant and right mid abdomen. Mild gaseous distention of large bowel simone ntified. Air-filled loops of nondilated small bowel are present. CONCLUSION: Mild gaseous distention of large bowel. Jamie Khan MD on August 03, 2017 at 13:09 Board Certified Radiologist. This report was verified electronically.
[2017-08-03] MEDS ORDERED: METHYLNALTREXONE BROMIDE 12 MG/0.6 ML VIAL SQ ONE (13:30)
--- NOTE | 2017-08-03 13:31 | HHI.PR ---
Subjective Remarks Pt with increased abdominal pain today Some nausea but no vomiting His last BM was 3 days ago Pt is on IVF and is NPO Objective Vitals Vital Signs Date Time Temp Pulse Resp B/P (MAP) Pulse Ox O2 Delivery O2 Flow Rate FiO2 08/03/17 12:00 97.5 82 18 139/70 (93) 94 08/03/17 08:00 99.7 88 17 146/71 (96) 94 08/03/17 06:06 18 08/03/17 00:00 100.4 97 16 128/67 (87) 94 08/02/17 20:00 98.3 74 16 134/69 (90) 96 08/02/17 16:00 100.9 96 20 131/66 (87) 95 Result Diagram: 08/02/1772708/02/17727 Other Results Laboratory Tests Test 08/02/17 07:28 White Blood Count 12.4 TH/MM3 Red Blood Count 4.18 MIL/MM3 Hemoglobin 12.7 GM/DL Hematocrit 36.9 % Mean Corpuscular Volume 88.2 FL Mean Corpuscular Hemoglobin 30.3 PG Mean Corpuscular Hemoglobin Concent 34.3 % Red Cell Distribution Width 14.1 % Platelet Count 133 TH/MM3 Mean Platelet Volume 7.6 FL Neutrophils (%) (Auto) 86.2 % Lymphocytes (%) (Auto) 6.3 % Monocytes (%) (Auto) 7.0 % Eosinophils (%) (Auto) 0.2 % Basophils (%) (Auto) 0.3 % Neutrophils # (Auto) 10.7 TH/MM3 Lymphocytes # (Auto) 0.8 TH/MM3 Monocytes # (Auto) 0.9 TH/MM3 Eosinophils # (Auto) 0.0 TH/MM3 Basophils # (Auto) 0.0 TH/MM3 CBC Comment DIFF FINAL Differential Comment Blood Urea Nitrogen 24 MG/DL Creatinine 1.78 MG/DL Random Glucose 119 MG/DL Total Protein 6.0 GM/DL Albumin 3.2 GM/DL Calcium Level 7.3 MG/DL Alkaline Phosphatase 151 U/L Aspartate Amino Transf (AST/SGOT) 231 U/L Alanine Aminotransferase (ALT/SGPT) 371 U/L Total Bilirubin 2.1 MG/DL Direct Bilirubin 1.2 MG/DL Sodium Level 141 MEQ/L Potassium Level 4.1 MEQ/L Chloride Level 108 MEQ/L Carbon Dioxide Level 24.9 MEQ/L Anion Gap 8 MEQ/L Estimat Glomerular Filtration Rate 37 ML/MIN Protein Corrected Calcium 7.9 MG/DL Indirect Bilirubin 0.9 MG/DL Lipase 3174 U/L Imaging Last Impressions Abdomen X-Ray 08/03/17 0000 Signed Impressions: Service Date/Time: Thursday, August 03, 2017 12:50 - CONCLUSION: Mild gaseous distention of large bowel. Jamie Khan MD Abdomen/Pelvis CT 08/01/17 0021 Signed Impressions: Service Date/Time: Tuesday, August 01, 2017 01:15 - CONCLUSION: 1. Acute pancreatitis and duodenitis. There is edema and scattered small collections of fluid without anything organized, thickwalled or drainable. 2. Suspected cholelithiasis although a stone is not discretely visible on today's CT. No ductal dilatation is demonstrated. 3. 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 4. Sigmoid colon diverticulosis. No diverticulitis. No bowel obstruction. Mino Espinoza MD Cholangiopancreatography MRI 08/01/17 0000 Signed Impressions: Service Date/Time: Tuesday, August 01, 2017 11:42 - CONCLUSION: 1. Findings again consistent with acute pancreatitis. 2. Moderate amount of sludge in the gallbladder. 3. Intrahepatic and extrahepatic biliary ducts within normal limits. Oniel Alonzo MD Objective Remarks General: NAD, AAOx3 Chest: CTA Cardiac: Regular Abd: Minimal bowel sounds, distended, tympanic, diffusely tender Ext: No edema A/P Problem List: (1) Acute gallstone pancreatitis ICD Codes: K85.10 - Biliary acute pancreatitis without necrosis or infection Status: Acute Plan: - Pt is a 76 y/o male with hyperlipidemia, BPH, hypothyroidism and chronic renal insufficiency who presented to the ED with complaints of N/V and upper abdominal pain that radiated to his back. - Pt had been planned for outpt cholecystectomy next week with Dr. Cali - Labs at admission revealed Lipase 56,593, Tbili 2.2, AST 1094, ALT 581 - CT Abd/pelvis (08/01/17) --> Acute pancreatitis and duodenitis. There is edema and scattered small collections of fluid without anything organized, thick walled or drainable. Suspected cholelithiasis although a stone is not discretely visible on today's CT. No ductal dilatation is demonstrated. 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 Sigmoid colon diverticulosis. No diverticulitis. No bowel obstruction. - Pt is NPO - Cont. IVF - GI following - Cont. IV Levaquin and Flagyl - MRCP (08/01/17) --> Findings again consistent with acute pancreatitis. Moderate amount of sludge in the gallbladder. Intrahepatic and extrahepatic biliary ducts within normal limits. - General Surgery is following as well - Repeat LFTs and Lipase are improving - On 08/03 pt has had increased abd pain and distension. - KUB (08/03) --> Mild gaseous distention of large bowel - We will give Relistor now - Increase frequency of Zofran to Q3H - Ativan PRN - Pain control PRN - Try t get the pt OOB to chair - Zofran PRN - Monitor labs closely - Supportive care - DVT prophylaxis with SCDs (2) Abdominal pain ICD Codes: R10.9 - Unspecified abdominal pain Status: Acute Plan: - See above Assessment and Plan Patient examined. Assessment and plan formulated with Ewa Gomez PA-C. I agree with the above. Pt c/o continued abdominal pain and distension. 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 Pt NPO for gallstone pancreatitis. Relistor now. Encourage OOB to chair and ambulation. May need to decrease dilaudid frequency. Ativan prn anxiety. KUB (08/03) --> mild gaseous distension of the large bowel. Ewa Gomez Aug 03, 2017 13:30 Yash Escobar DO Aug 03, 2017 13:45
[2017-08-03] MEDS: LORazepam 2 MG/ML VIAL IV PUSH PRN ×2 (14:17→23:51)
--- NOTE | 2017-08-03 15:31 | HHI.GIFU ---
Subjective Remarks Pt in bedside chair Still having a lot of nausea Has a wet rag on his forehead which he states helps Abdominal pain worsening, generalized with abdominal distention (+) flatus Received Relistor about an hours ago, no BM States has issues with constipation at home, takes Metamucil daily (Anne Marie Burdick) Objective Vitals I&O Vital Signs Date Time Temp Pulse Resp B/P (MAP) Pulse Ox O2 Delivery O2 Flow Rate FiO2 08/03/17 12:00 97.5 82 18 139/70 (93) 94 08/03/17 08:00 99.7 88 17 146/71 (96) 94 08/03/17 06:06 18 08/03/17 00:00 100.4 97 16 128/67 (87) 94 08/02/17 20:00 98.3 74 16 134/69 (90) 96 08/02/17 16:00 100.9 96 20 131/66 (87) 95 I/O 08/02/17 08/02/17 08/02/17 08/03/17 08/03/17 08/03/17 07:00 15:00 23:00 07:00 15:00 23:00 Intake Total 1100 ml 100 ml 0 ml 0 ml Output Total 425 ml 200 ml 1025 ml Balance 675 ml 100 ml -200 ml -1025 ml Intake Oral 0 ml 0 ml 0 ml 0 ml IV Total 1100 ml 100 ml Output Urine Total 425 ml 200 ml 1025 ml Imaging Last Impressions Abdomen X-Ray 08/03/17 0000 Signed Impressions: Service Date/Time: Thursday, August 03, 2017 12:50 - CONCLUSION: Mild gaseous distention of large bowel. Jamie Khan MD Abdomen/Pelvis CT 08/01/17 0021 Signed Impressions: Service Date/Time: Tuesday, August 01, 2017 01:15 - CONCLUSION: 1. Acute pancreatitis and duodenitis. There is edema and scattered small collections of fluid without anything organized, thickwalled or drainable. 2. Suspected cholelithiasis although a stone is not discretely visible on today's CT. No ductal dilatation is demonstrated. 3. 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 4. Sigmoid colon diverticulosis. No diverticulitis. No bowel obstruction. Mino Espinoza MD Cholangiopancreatography MRI 08/01/17 0000 Signed Impressions: Service Date/Time: Tuesday, August 01, 2017 11:42 - CONCLUSION: 1. Findings again consistent with acute pancreatitis. 2. Moderate amount of sludge in the gallbladder. 3. Intrahepatic and extrahepatic biliary ducts within normal limits. Oniel Alonzo MD Physical Exam HEENT: Normocephalic; atraumatic CHEST: Even/unlabored CARDIAC: RRR ABDOMEN: Distended, semi-firm, diffuse tenderness, bowel sounds active SKIN: Normal; no rash; no jaundice. DATA [employer] ENG[employer]ER: No focal deficits; alert and oriented times three. (Anne Marie Burdick) Assessment and Plan Plan - Acute gallstones pancreatitis- Possible choledocholithiasis, MRCP ordered, pt is NPO Pt with hx of biliary colic,gallstones scheduled next week for an elective cholecystectomy presents to [facility] for severe abdominal pains which he rates at a 10 out of 10, nausea and vomiting. The pain starts in the back and wrap across the entire abd, very painful upon palpation started around 4 pm, then followed by N/V around 6 pm. work up revealed elevated LFTs, lipase, and mild leukocytosis. CT w/out contrast showed acute pancreatitis and duodenitis, suspected cholelithiasis, right nephrectomy and sigmoid diverticulosis. GS already on the case. No previous history of pancreatitis, no alcohol intake. - Elevated LFTs- obstructive pattern, possible choledocholithiasis, MRCP ordered AST 1094, BSV125, ALP 187, bili 2.2, lipase 00343, repeat labs pending - Leukocytolysis- secondary to above, afebrile on Levofloxacin and Flagyl - Biliary colic- was scheduled next week for an elective cholecystectomy (08/03) --> Pt complaining of abdominal distention and generalized abdominal pain today. Reports nausea, has a wet rag on his forehead which he says helps some. Denies emesis. No BM. (+) Flatus. Received Relistor about an hour ago. KUB (08/03) --> Mild gaseous distention of large bowel. Pt reports history of constipation at home, takes Metamucil daily. LFTs and lipase trending down. MRCP noted --> Acute pancreatitis, moderated amount of sludge in the gallbladder. Intrahepatic and extrahepatic biliary ducts WNL. Plan: - Relistor per attending - Monitor stool count - Monitor LFTs and lipase - Continue with IVF - Pain control - No indication for ERCP at this time - Appreciate GS input - Further recommendations to follow based on clinical course Pt has been seen and examined by myself and Dr. Medley and this note is written on his behalf (Anne Marie Burdick) Physician Comments Agree with above assessment and plan. Further recommendations to follow. (Pearl Medley MD) Anne Marie Burdick Aug 03, 2017 15:31 Pearl Medley MD Aug 03, 2017 15:50
[2017-08-03 16:00] VITALS: BP 139/65; PULSE 88; RESP 18; TEMP 97.4; O2SAT 94
[2017-08-03 16:43] LABS: AUTOMATED NEUTROPHIL # 8.9 TH/MM3 (1.8-7.7); BASOPHIL % 0.1 % (0.0-2.0); HEMATOCRIT 36.7 % (39.0-51.0); HEMOGLOBIN 12.3 GM/DL (13.0-17.0); LYMPH % 6.3 % (9.0-44.0); LYMPHOCYTE # 0.7 TH/MM3 (1.0-4.8); MEAN CELL VOLUME 89.9 FL (80.0-100.0); MEAN CORPUSCULAR HEMOGLOBIN 30.2 PG (27.0-34.0); MEAN CORPUSCULAR HGB CONC 33.6 % (32.0-36.0); MEAN PLATELET VOLUME 8.4 FL (7.0-11.0); MONO % 7.3 % (0.0-8.0); MONOCYTE # 0.8 TH/MM3 (0-0.9); NEUT % 86.3 % (16.0-70.0); PLATELET COUNT 135 TH/MM3 (150-450); RED BLOOD COUNT 4.08 MIL/MM3 (4.50-5.90); RED CELL DISTRIBUTION WIDTH 14.8 % (11.6-17.2); WHITE BLOOD COUNT 10.3 TH/MM3 (4.0-11.0)
[2017-08-03 17:07] LABS: ALBUMIN 2.7 GM/DL (3.4-5.0); BICARBONATE 22.1 MEQ/L (21.0-32.0); CALCIUM 7.3 MG/DL (8.5-10.1); CALCIUM-PROTEIN CORRECTED 7.9 MG/DL (8.5-10.1); CREATININE 1.67 MG/DL (0.60-1.30); TOTAL BILIRUBIN ADULT 1.4 MG/DL (0.2-1.0); TOTAL PROTEIN 5.9 GM/DL (6.4-8.2)
[2017-08-03 20:00] VITALS: BP 145/67; PULSE 102; RESP 18; TEMP 97.1; O2SAT 95
[2017-08-03] MEDS: TERAZOSIN HCL 5 MG CAP PO SCH (20:39)
[2017-08-04 00:03] VITALS: BP 123/65; PULSE 107; RESP 18; TEMP 96.6; O2SAT 94
[2017-08-04] MEDS: LISINOPRIL 10 MG TAB PO SCH (01:00)
[2017-08-04] MEDS: metroNIDAZOLE 500 MG INJ 100 ML IV SCH ×4 (04:22→21:07)
[2017-08-04] MEDS: LEVOTHYROXINE SODIUM 50 MCG TAB PO SCH (06:11)
[2017-08-04] MEDS: ONDANSETRON HCL 4 MG/2 ML VIAL IV PUSH PRN ×6 (06:14→20:55)
[2017-08-04] MEDS: HYDROmorphone HCL PF 2 MG/ML VIAL IV PUSH PRN ×6 (06:15→21:00)
[2017-08-04 08:00] VITALS: BP 126/64; PULSE 94; RESP 18; TEMP 98.6; O2SAT 94
[2017-08-04] MEDS: ALLOPURINOL 300 MG TAB PO SCH (08:22)
[2017-08-04] MEDS: SODIUM CHLOR 0.9% 1000 ML INJ 1,000 ML IV SCH ×2 (08:28→13:50)
--- NOTE | 2017-08-04 09:44 | RADRPT ---
EXAM DATE/TIME: 08/04/2017 08:39 [facility] COMPARISON: ABDOMEN KUB ONLY, August 03, 2017, 12:50. INDICATIONS : Abdominal distention, evaluate ileus MEDICAL HISTORY : Hypertension. Renal insufficiency. SURGICAL HISTORY : Nephrectomy, right. Appendectomy. ENCOUNTER: Subsequent ACUITY: 4 - 6 days PAIN SCORE: 3/10 LOCATION: Bilateral abdomen FINDINGS: The bowel gas pattern is within normal limits. No air-fluid levels are seen. No free intraperitoneal air is identified. No abnormal calcifications are seen. No organomegaly is evident. There are surgical clips in the righ t side the abdomen. The lung bases visualized are clear. CONCLUSION: 1. Benign-appearing bowel gas pattern. Mumtaz Flor MD on August 04, 2017 at 9:40 Board Certified Radiologist. This report was verified electronically.
--- NOTE | 2017-08-04 10:13 | HHI.PR ---
Subjective Remarks back from xray.....passing some gas. no vomiting. feels a little better than yesterday. Objective Vitals in chair heart reg lung cta abd distended. few bs. no rebound. diffuse tender Vital Signs Date Time Temp Pulse Resp B/P (MAP) Pulse Ox O2 Delivery O2 Flow Rate FiO2 08/04/17 08:00 98.6 94 18 126/64 (84) 94 08/04/17 00:03 96.6 107 18 123/65 (84) 94 08/03/17 20:00 97.1 102 18 145/67 (93) 95 08/03/17 16:00 97.4 88 18 139/65 (89) 94 08/03/17 12:00 97.5 82 18 139/70 (93) 94 Result Diagram: 08/03/17 1550 08/03/17 1550 Imaging Last Impressions Abdomen X-Ray 08/03/17 0000 Signed Impressions: Service Date/Time: Thursday, August 03, 2017 12:50 - CONCLUSION: Mild gaseous distention of large bowel. Jamie Khan MD Abdomen/Pelvis CT 08/01/17 0021 Signed Impressions: Service Date/Time: Tuesday, August 01, 2017 01:15 - CONCLUSION: 1. Acute pancreatitis and duodenitis. There is edema and scattered small collections of fluid without anything organized, thickwalled or drainable. 2. Suspected cholelithiasis although a stone is not discretely visible on today's CT. No ductal dilatation is demonstrated. 3. 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 4. Sigmoid colon diverticulosis. No diverticulitis. No bowel obstruction. Mino Espinoza MD Cholangiopancreatography MRI 08/01/17 0000 Signed Impressions: Service Date/Time: Tuesday, August 01, 2017 11:42 - CONCLUSION: 1. Findings again consistent with acute pancreatitis. 2. Moderate amount of sludge in the gallbladder. 3. Intrahepatic and extrahepatic biliary ducts within normal limits. Oniel Alonzo MD A/P Problem List: (1) Acute gallstone pancreatitis ICD Codes: K85.10 - Biliary acute pancreatitis without necrosis or infection Status: Acute Plan: - Pt is a 76 y/o male with hyperlipidemia, BPH, hypothyroidism and chronic renal insufficiency who presented to the ED with complaints of N/V and upper abdominal pain that radiated to his back. - Pt had been planned for outpt cholecystectomy next week with Dr. Cali - Labs at admission revealed Lipase 56,593, Tbili 2.2, AST 1094, ALT 581 - CT Abd/pelvis (08/01/17) --> Acute pancreatitis and duodenitis. There is edema and scattered small collections of fluid without anything organized, thick walled or drainable. Suspected cholelithiasis although a stone is not discretely visible on today's CT. No ductal dilatation is demonstrated. 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 Sigmoid colon diverticulosis. No diverticulitis. No bowel obstruction. - MRCP (08/01/17) --> Findings again consistent with acute pancreatitis. Moderate amount of sludge in the gallbladder. Intrahepatic and extrahepatic biliary ducts within normal limits. - Cont. IV Levaquin and Flagyl -- KUB (08/03) --> Mild gaseous distention of large bowel - KUB 08/04..read as benign - - Repeat LFTs and Lipase are improving - continue to monitor bowel function closely. given dose relistor on 08/03 -GI and gen surg following - cont npo and ivf - On 08/03 pt has had increased abd pain and distension. - Ativan PRN - Pain control PRN - Zofran PRN - Supportive care - Daily PT - DVT prophylaxis with SCDs (2) Abdominal pain ICD Codes: R10.9 - Unspecified abdominal pain Status: Acute Plan: - See above Foreign Dillon MD Aug 04, 2017 10:13
[2017-08-04 10:38] LABS: AUTOMATED NEUTROPHIL # 7.1 TH/MM3 (1.8-7.7); BASOPHIL % 0.1 % (0.0-2.0); HEMATOCRIT 30.6 % (39.0-51.0); HEMOGLOBIN 10.6 GM/DL (13.0-17.0); LYMPH % 7.3 % (9.0-44.0); LYMPHOCYTE # 0.6 TH/MM3 (1.0-4.8); MEAN CELL VOLUME 88.7 FL (80.0-100.0); MEAN CORPUSCULAR HEMOGLOBIN 30.7 PG (27.0-34.0); MEAN CORPUSCULAR HGB CONC 34.6 % (32.0-36.0); MEAN PLATELET VOLUME 7.8 FL (7.0-11.0); MONO % 8.5 % (0.0-8.0); MONOCYTE # 0.7 TH/MM3 (0-0.9); NEUT % 84.1 % (16.0-70.0); PLATELET COUNT 136 TH/MM3 (150-450); RED BLOOD COUNT 3.45 MIL/MM3 (4.50-5.90); RED CELL DISTRIBUTION WIDTH 14.7 % (11.6-17.2); WHITE BLOOD COUNT 8.4 TH/MM3 (4.0-11.0)
[2017-08-04 11:00] LABS: ALBUMIN 2.4 GM/DL (3.4-5.0); BICARBONATE 21.9 MEQ/L (21.0-32.0); CREATININE 1.53 MG/DL (0.60-1.30); TOTAL PROTEIN 5.2 GM/DL (6.4-8.2)
--- NOTE | 2017-08-04 11:29 | HHI.GIFU ---
Subjective Remarks Pt resting in bed (+) flatus (-) BM Continued abdominal pain Has not eaten (Anne Marie Burdick) Objective Vitals I&O Vital Signs Date Time Temp Pulse Resp B/P (MAP) Pulse Ox O2 Delivery O2 Flow Rate FiO2 08/04/17 08:00 98.6 94 18 126/64 (84) 94 08/04/17 00:03 96.6 107 18 123/65 (84) 94 08/03/17 20:00 97.1 102 18 145/67 (93) 95 08/03/17 16:00 97.4 88 18 139/65 (89) 94 08/03/17 12:00 97.5 82 18 139/70 (93) 94 I/O 08/03/17 08/03/17 08/03/17 08/04/17 08/04/17 08/04/17 07:00 15:00 23:00 07:00 15:00 23:00 Intake Total 0 ml 250 ml 100 ml 1200 ml Output Total 1025 ml 350 ml Balance -1025 ml 250 ml -250 ml 1200 ml Intake Oral 0 ml 0 ml IV Total 250 ml 100 ml 1200 ml Output Urine Total 1025 ml 350 ml # Bowel Movements 0 Laboratory Laboratory Tests Test 08/03/17 15:50 08/04/17 10:19 White Blood Count 10.3 8.4 Red Blood Count 4.08 3.45 Hemoglobin 12.3 10.6 Hematocrit 36.7 30.6 Mean Corpuscular Volume 89.9 88.7 Mean Corpuscular Hemoglobin 30.2 30.7 Mean Corpuscular Hemoglobin Concent 33.6 34.6 Red Cell Distribution Width 14.8 14.7 Platelet Count 135 136 Mean Platelet Volume 8.4 7.8 Neutrophils (%) (Auto) 86.3 84.1 Lymphocytes (%) (Auto) 6.3 7.3 Monocytes (%) (Auto) 7.3 8.5 Eosinophils (%) (Auto) 0.0 0.0 Basophils (%) (Auto) 0.1 0.1 Neutrophils # (Auto) 8.9 7.1 Lymphocytes # (Auto) 0.7 0.6 Monocytes # (Auto) 0.8 0.7 Eosinophils # (Auto) 0.0 0.0 Basophils # (Auto) 0.0 0.0 CBC Comment DIFF FINAL DIFF FINAL Differential Comment Blood Urea Nitrogen 25 27 Creatinine 1.67 1.53 Random Glucose 115 115 Total Protein 5.9 5.2 Albumin 2.7 2.4 Calcium Level 7.3 7.0 Alkaline Phosphatase 138 113 Aspartate Amino Transf (AST/SGOT) 62 36 Alanine Aminotransferase (ALT/SGPT) 181 119 Total Bilirubin 1.4 1.0 Sodium Level 142 146 Potassium Level 3.7 3.4 Chloride Level 110 114 Carbon Dioxide Level 22.1 21.9 Anion Gap 10 10 Estimat Glomerular Filtration Rate 40 44 Protein Corrected Calcium 7.9 8.0 Lipase 504 171 Imaging Last Impressions Abdomen X-Ray 08/04/17 0600 Signed Impressions: Service Date/Time: Friday, August 04, 2017 08:39 - CONCLUSION: 1. Benign-appearing bowel gas pattern. Mumtaz Flor MD Abdomen/Pelvis CT 08/01/17 0021 Signed Impressions: Service Date/Time: Tuesday, August 01, 2017 01:15 - CONCLUSION: 1. Acute pancreatitis and duodenitis. There is edema and scattered small collections of fluid without anything organized, thickwalled or drainable. 2. Suspected cholelithiasis although a stone is not discretely visible on today's CT. No ductal dilatation is demonstrated. 3. 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 4. Sigmoid colon diverticulosis. No diverticulitis. No bowel obstruction. Mino Espinoza MD Cholangiopancreatography MRI 08/01/17 0000 Signed Impressions: Service Date/Time: Tuesday, August 01, 2017 11:42 - CONCLUSION: 1. Findings again consistent with acute pancreatitis. 2. Moderate amount of sludge in the gallbladder. 3. Intrahepatic and extrahepatic biliary ducts within normal limits. Oniel Alonzo MD Physical Exam HEENT: Normocephalic; atraumatic CHEST: Even/unlabored CARDIAC: RRR ABDOMEN: Distended, soft, diffuse tenderness, bowel sounds active SKIN: Normal; no rash; no jaundice. TEXTURE ARTIST: No focal deficits; alert and oriented times three. (Anne Marie Burdick) Assessment and Plan Plan - Acute gallstones pancreatitis- Possible choledocholithiasis, MRCP ordered, pt is NPO Pt with hx of biliary colic,gallstones scheduled next week for an elective cholecystectomy presents to [facility] for severe abdominal pains which he rates at a 10 out of 10, nausea and vomiting. The pain starts in the back and wrap across the entire abd, very painful upon palpation started around 4 pm, then followed by N/V around 6 pm. work up revealed elevated LFTs, lipase, and mild leukocytosis. CT w/out contrast showed acute pancreatitis and duodenitis, suspected cholelithiasis, right nephrectomy and sigmoid diverticulosis. GS already on the case. No previous history of pancreatitis, no alcohol intake. - Elevated LFTs- obstructive pattern, possible choledocholithiasis, MRCP ordered AST 1094, LLF373, ALP 187, bili 2.2, lipase 32863, repeat labs pending - Leukocytolysis- secondary to above, afebrile on Levofloxacin and Flagyl - Biliary colic- was scheduled next week for an elective cholecystectomy (08/03) --> Pt complaining of abdominal distention and generalized abdominal pain today. Reports nausea, has a wet rag on his forehead which he says helps some. Denies emesis. No BM. (+) Flatus. Received Relistor about an hour ago. KUB (08/03) --> Mild gaseous distention of large bowel. Pt reports history of constipation at home, takes Metamucil daily. LFTs and lipase trending down. MRCP noted --> Acute pancreatitis, moderated amount of sludge in the gallbladder. Intrahepatic and extrahepatic biliary ducts WNL. (08/04) --> Pt still passing flatus. Has not had BM. Repeat KUB -> Benign appearing bowel gas pattern. LFTs still trending down. Pt planned for cholecystectomy with Dr. Cali next week. Plan: - Clear liquid diet - Monitor stool count - Monitor LFTs and lipase - Continue with IVF - Pain control - No indication for ERCP at this time - Appreciate GS input - GI will sign off, please reconsult as needed Pt has been seen and examined by myself and Dr. Medley and this note is written on his behalf Pt has been seen and examined by myself and Dr. Medley and this note is written on his behalf (Anne Marie Burdick) Physician Comments Agree with above assessment and plan, please notify us if needed. (Pearl Medley MD) Anne Marie Burdick Aug 04, 2017 11:29 Pearl Medley MD Aug 04, 2017 13:38
[2017-08-04 12:00] VITALS: BP 146/74; PULSE 79; RESP 19; TEMP 98; O2SAT 96
[2017-08-04] MEDS ORDERED: POTASSIUM CHLORIDE 20 MEQ CONTROLLED RELEASE TAB PO ONE (13:30)
--- NOTE | 2017-08-04 15:32 | HHI.PR ---
Subjective Subjective Notes Feeling better than yesterday; + flatus. Objective Vitals/I&O Vital Signs Date Time Temp Pulse Resp B/P (MAP) Pulse Ox O2 Delivery O2 Flow Rate FiO2 08/04/17 12:00 98.0 79 19 146/74 (98) 96 08/01/17 01:08 Room Air Labs Laboratory Tests Test 08/03/17 15:50 08/04/17 10:19 White Blood Count 10.3 8.4 Red Blood Count 4.08 3.45 Hemoglobin 12.3 10.6 Hematocrit 36.7 30.6 Mean Corpuscular Volume 89.9 88.7 Mean Corpuscular Hemoglobin 30.2 30.7 Mean Corpuscular Hemoglobin Concent 33.6 34.6 Red Cell Distribution Width 14.8 14.7 Platelet Count 135 136 Mean Platelet Volume 8.4 7.8 Neutrophils (%) (Auto) 86.3 84.1 Lymphocytes (%) (Auto) 6.3 7.3 Monocytes (%) (Auto) 7.3 8.5 Eosinophils (%) (Auto) 0.0 0.0 Basophils (%) (Auto) 0.1 0.1 Neutrophils # (Auto) 8.9 7.1 Lymphocytes # (Auto) 0.7 0.6 Monocytes # (Auto) 0.8 0.7 Eosinophils # (Auto) 0.0 0.0 Basophils # (Auto) 0.0 0.0 CBC Comment DIFF FINAL DIFF FINAL Differential Comment Blood Urea Nitrogen 25 27 Creatinine 1.67 1.53 Random Glucose 115 115 Total Protein 5.9 5.2 Albumin 2.7 2.4 Calcium Level 7.3 7.0 Alkaline Phosphatase 138 113 Aspartate Amino Transf (AST/SGOT) 62 36 Alanine Aminotransferase (ALT/SGPT) 181 119 Total Bilirubin 1.4 1.0 Sodium Level 142 146 Potassium Level 3.7 3.4 Chloride Level 110 114 Carbon Dioxide Level 22.1 21.9 Anion Gap 10 10 Estimat Glomerular Filtration Rate 40 44 Protein Corrected Calcium 7.9 8.0 Lipase 504 171 Radiology Last Impressions Abdomen/Pelvis CT 08/01/17 0021 Signed Impressions: Service Date/Time: Tuesday, August 01, 2017 01:15 - CONCLUSION: 1. Acute pancreatitis and duodenitis. There is edema and scattered small collections of fluid without anything organized, thickwalled or drainable. 2. Suspected cholelithiasis although a stone is not discretely visible on today's CT. No ductal dilatation is demonstrated. 3. 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 4. Sigmoid colon diverticulosis. No diverticulitis. No bowel obstruction. Mino Espinoza MD Cholangiopancreatography MRI 08/01/17 0000 Signed Impressions: Service Date/Time: Tuesday, August 01, 2017 11:42 - CONCLUSION: 1. Findings again consistent with acute pancreatitis. 2. Moderate amount of sludge in the gallbladder. 3. Intrahepatic and extrahepatic biliary ducts within normal limits. Oniel Alonzo MD A/P Assessment and Plan Complicated gallstone pancreatitis; Lipase normal now; gradually resolving the pancreatitis. Plan: will require delayed lap julian in 6-8 weeks. Please make arrangements for him to see Dr. Cali in the office 2 weeks after discharge. Johan Hill MD Aug 04, 2017 15:32
[2017-08-04 16:00] VITALS: BP 145/69; PULSE 75; RESP 19; TEMP 99.2; O2SAT 94
[2017-08-04 20:00] VITALS: BP 149/68; PULSE 70; RESP 20; TEMP 98.2; O2SAT 97
[2017-08-04] MEDS: TERAZOSIN HCL 5 MG CAP PO SCH (20:54)
[2017-08-05] VITALS: BP 149/73; PULSE 83; RESP 20; TEMP 96.1; O2SAT 96
[2017-08-05] MEDS: ONDANSETRON HCL 4 MG/2 ML VIAL IV PUSH PRN ×6 (00:17→21:46)
[2017-08-05] MEDS: LORazepam 2 MG/ML VIAL IV PUSH PRN ×2 (00:17→17:40)
[2017-08-05] MEDS: HYDROmorphone HCL PF 2 MG/ML VIAL IV PUSH PRN ×7 (00:18→21:45)
[2017-08-05] MEDS: LISINOPRIL 10 MG TAB PO SCH (00:29)
[2017-08-05] MEDS: SODIUM CHLOR 0.9% 1000 ML INJ 1,000 ML IV SCH ×2 (00:30→11:13)
[2017-08-05] MEDS: metroNIDAZOLE 500 MG INJ 100 ML IV SCH ×4 (04:32→21:47)
[2017-08-05] MEDS: LEVOTHYROXINE SODIUM 50 MCG TAB PO SCH (04:33)
[2017-08-05 08:00] VITALS: BP 130/67; PULSE 71; RESP 16; TEMP 98.4; O2SAT 96
[2017-08-05] MEDS: ALLOPURINOL 300 MG TAB PO SCH (08:19)
[2017-08-05 08:27] LABS: ALBUMIN 2.3 GM/DL (3.4-5.0); BICARBONATE 21.3 MEQ/L (21.0-32.0); CALCIUM 7.1 MG/DL (8.5-10.1); CREATININE 1.51 MG/DL (0.60-1.30); DIRECT BILIRUBIN ADULT 0.3 MG/DL (0.0-0.2); INDIRECT BILIRUBIN 0.5 MG/DL (0.0-0.8); TOTAL BILIRUBIN ADULT 0.8 MG/DL (0.2-1.0); TOTAL PROTEIN 5.2 GM/DL (6.4-8.2)
[2017-08-05 09:47] LABS: CALCIUM-PROTEIN CORRECTED 8.1 MG/DL (8.5-10.1)
[2017-08-05] MEDS: LEVOFLOXACIN 750 MG PREMIX INJ 150 ML IV SCH (11:01)
[2017-08-05 12:00] VITALS: BP 132/66; PULSE 76; RESP 16; TEMP 98.9; O2SAT 98
[2017-08-05] MEDS: 1/2 NS + KCL 20 MEQ INJ 1,000 ML IV SCH (15:30)
[2017-08-05 16:00] VITALS: BP 117/58; PULSE 77; RESP 15; TEMP 98.3; O2SAT 97
--- NOTE | 2017-08-05 16:22 | HHI.PR ---
Subjective Remarks Patient resting in bed with at bedside tolerating clear liquid diet reports positive flatus continues to have abd pain, reports abd pain with some improvement Objective Vitals Vital Signs Date Time Temp Pulse Resp B/P (MAP) Pulse Ox O2 Delivery O2 Flow Rate FiO2 08/05/17 12:00 98.9 76 16 132/66 (88) 98 08/05/17 08:00 98.4 71 16 130/67 (88) 96 08/05/17 00:00 96.1 83 20 149/73 (98) 96 08/04/17 20:00 98.2 70 20 149/68 (95) 97 Result Diagram: 08/04/17 1019 08/05/17 0657 Other Results Laboratory Tests Test 08/03/17 15:50 08/04/17 10:19 08/05/17 06:57 White Blood Count 10.3 TH/MM3 8.4 TH/MM3 Red Blood Count 4.08 MIL/MM3 3.45 MIL/MM3 Hemoglobin 12.3 GM/DL 10.6 GM/DL Hematocrit 36.7 % 30.6 % Mean Corpuscular Volume 89.9 FL 88.7 FL Mean Corpuscular Hemoglobin 30.2 PG 30.7 PG Mean Corpuscular Hemoglobin Concent 33.6 % 34.6 % Red Cell Distribution Width 14.8 % 14.7 % Platelet Count 135 TH/MM3 136 TH/MM3 Mean Platelet Volume 8.4 FL 7.8 FL Neutrophils (%) (Auto) 86.3 % 84.1 % Lymphocytes (%) (Auto) 6.3 % 7.3 % Monocytes (%) (Auto) 7.3 % 8.5 % Eosinophils (%) (Auto) 0.0 % 0.0 % Basophils (%) (Auto) 0.1 % 0.1 % Neutrophils # (Auto) 8.9 TH/MM3 7.1 TH/MM3 Lymphocytes # (Auto) 0.7 TH/MM3 0.6 TH/MM3 Monocytes # (Auto) 0.8 TH/MM3 0.7 TH/MM3 Eosinophils # (Auto) 0.0 TH/MM3 0.0 TH/MM3 Basophils # (Auto) 0.0 TH/MM3 0.0 TH/MM3 CBC Comment DIFF FINAL DIFF FINAL Differential Comment Blood Urea Nitrogen 25 MG/DL 27 MG/DL 28 MG/DL Creatinine 1.67 MG/DL 1.53 MG/DL 1.51 MG/DL Random Glucose 115 MG/DL 115 MG/DL 106 MG/DL Total Protein 5.9 GM/DL 5.2 GM/DL 5.2 GM/DL Albumin 2.7 GM/DL 2.4 GM/DL 2.3 GM/DL Calcium Level 7.3 MG/DL 7.0 MG/DL 7.1 MG/DL Alkaline Phosphatase 138 U/L 113 U/L 131 U/L Aspartate Amino Transf (AST/SGOT) 62 U/L 36 U/L 29 U/L Alanine Aminotransferase (ALT/SGPT) 181 U/L 119 U/L 88 U/L Total Bilirubin 1.4 MG/DL 1.0 MG/DL 0.8 MG/DL Sodium Level 142 MEQ/L 146 MEQ/L 148 MEQ/L Potassium Level 3.7 MEQ/L 3.4 MEQ/L 3.6 MEQ/L Chloride Level 110 MEQ/L 114 MEQ/L 117 MEQ/L Carbon Dioxide Level 22.1 MEQ/L 21.9 MEQ/L 21.3 MEQ/L Anion Gap 10 MEQ/L 10 MEQ/L 10 MEQ/L Estimat Glomerular Filtration Rate 40 ML/MIN 44 ML/MIN 45 ML/MIN Protein Corrected Calcium 7.9 MG/DL 8.0 MG/DL 8.1 MG/DL Lipase 504 U/L 171 U/L Direct Bilirubin 0.3 MG/DL Indirect Bilirubin 0.5 MG/DL Imaging Last Impressions Abdomen X-Ray 08/03/17 0000 Signed Impressions: Service Date/Time: Thursday, August 03, 2017 12:50 - CONCLUSION: Mild gaseous distention of large bowel. Jamie Khan MD Abdomen/Pelvis CT 08/01/17 0021 Signed Impressions: Service Date/Time: Tuesday, August 01, 2017 01:15 - CONCLUSION: 1. Acute pancreatitis and duodenitis. There is edema and scattered small collections of fluid without anything organized, thickwalled or drainable. 2. Suspected cholelithiasis although a stone is not discretely visible on today's CT. No ductal dilatation is demonstrated. 3. 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 4. Sigmoid colon diverticulosis. No diverticulitis. No bowel obstruction. Mino Espinoza MD Cholangiopancreatography MRI 08/01/17 0000 Signed Impressions: Service Date/Time: Tuesday, August 01, 2017 11:42 - CONCLUSION: 1. Findings again consistent with acute pancreatitis. 2. Moderate amount of sludge in the gallbladder. 3. Intrahepatic and extrahepatic biliary ducts within normal limits. Oniel Alonzo MD Objective Remarks GENERAL: This is a well-nourished, well-developed patient CARDIOVASCULAR: Regular rate and rhythm RESPIRATORY: Clear to auscultation. Breath sounds equal bilaterally. GASTROINTESTINAL: Abdomen soft, tender LLQ and RUQ, nondistended. few hypoactive BS MUSCULOSKELETAL: Extremities without clubbing, cyanosis, or edema. NEURO: Awake and Alert. Moves all ext x4 A/P Problem List: (1) Acute gallstone pancreatitis ICD Codes: K85.10 - Biliary acute pancreatitis without necrosis or infection Status: Acute Plan: - Pt is a 76 y/o male with hyperlipidemia, BPH, hypothyroidism and chronic renal insufficiency who presented to the ED with complaints of N/V and upper abdominal pain that radiated to his back. - Pt had been planned for outpt cholecystectomy next week with Dr. Cali - Labs at admission revealed Lipase 56,593, Tbili 2.2, AST 1094, ALT 581 - CT Abd/pelvis (08/01/17) --> Acute pancreatitis and duodenitis. There is edema and scattered small collections of fluid without anything organized, thick walled or drainable. Suspected cholelithiasis although a stone is not discretely visible on today's CT. No ductal dilatation is demonstrated. 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 Sigmoid colon diverticulosis. No diverticulitis. No bowel obstruction. - MRCP (08/01/17) --> Findings again consistent with acute pancreatitis. Moderate amount of sludge in the gallbladder. Intrahepatic and extrahepatic biliary ducts within normal limits. - Cont. IV Levaquin and Flagyl -- KUB (08/03) --> Mild gaseous distention of large bowel - KUB 08/04..read as benign - - Repeat LFTs and Lipase are improving - continue to monitor bowel function closely. given dose relistor on 08/03 - positive flatus (08/05) - GI has signed off - Gen surg recommending f/u outpatient with Dr. Cali in 2 weeks with outpatient cholecystectomy in 6-8 weeks - clear liquids - On 08/03 pt has had increased abd pain and distension. - Ativan PRN - Pain control PRN - Zofran PRN - Supportive care - Daily PT - DVT prophylaxis with SCDs hypernatremia changed IVF to 1/2 NS - recheck labs in AM (2) Abdominal pain ICD Codes: R10.9 - Unspecified abdominal pain Status: Acute Plan: - See above Assessment and Plan Patient examined. Assessment and plan formulated with Yeny Burton PA-C. I agree with the above. Yeny Burton Aug 05, 2017 16:22 Yash Escobar DO Aug 08, 2017 23:41
[2017-08-05 20:00] VITALS: BP 118/56; PULSE 67; RESP 16; TEMP 97.9; O2SAT 98
[2017-08-05] MEDS: TERAZOSIN HCL 5 MG CAP PO SCH (21:43)
[2017-08-06] VITALS: BP 139/66; PULSE 68; RESP 18; TEMP 99.6; O2SAT 94
[2017-08-06] MEDS: LISINOPRIL 10 MG TAB PO SCH (00:49)
[2017-08-06] MEDS: ONDANSETRON HCL 4 MG/2 ML VIAL IV PUSH PRN ×6 (00:55→18:00)
[2017-08-06] MEDS: HYDROmorphone HCL PF 2 MG/ML VIAL IV PUSH PRN ×5 (00:56→14:40)
[2017-08-06] MEDS: LEVOTHYROXINE SODIUM 50 MCG TAB PO SCH (05:01)
[2017-08-06] MEDS: metroNIDAZOLE 500 MG INJ 100 ML IV SCH ×4 (05:02→21:32)
[2017-08-06] MEDS: 1/2 NS + KCL 20 MEQ INJ 1,000 ML IV SCH (05:10)
[2017-08-06 07:02] LABS: AUTOMATED NEUTROPHIL # 9.5 TH/MM3 (1.8-7.7); BASOPHIL % 0.1 % (0.0-2.0); EOSINOPHIL % 0.3 % (0.0-4.0); HEMATOCRIT 31.5 % (39.0-51.0); HEMOGLOBIN 10.6 GM/DL (13.0-17.0); LYMPH % 8.7 % (9.0-44.0); MEAN CELL VOLUME 88.6 FL (80.0-100.0); MEAN CORPUSCULAR HEMOGLOBIN 29.8 PG (27.0-34.0); MEAN CORPUSCULAR HGB CONC 33.7 % (32.0-36.0); MEAN PLATELET VOLUME 8.2 FL (7.0-11.0); MONO % 8.7 % (0.0-8.0); NEUT % 82.2 % (16.0-70.0); PLATELET COUNT 170 TH/MM3 (150-450); RED BLOOD COUNT 3.56 MIL/MM3 (4.50-5.90); RED CELL DISTRIBUTION WIDTH 14.7 % (11.6-17.2); WHITE BLOOD COUNT 11.5 TH/MM3 (4.0-11.0)
[2017-08-06 07:48] LABS: BICARBONATE 19.9 MEQ/L (21.0-32.0); CALCIUM 7.2 MG/DL (8.5-10.1); CREATININE 1.43 MG/DL (0.60-1.30); MAGNESIUM 2.1 MG/DL (1.5-2.5)
[2017-08-06 08:00] VITALS: BP 141/72; PULSE 70; RESP 18; TEMP 100.3; O2SAT 95
[2017-08-06 08:04] LABS: CALCIUM-PROTEIN CORRECTED 8.1 MG/DL (8.5-10.1); TOTAL PROTEIN 5.4 GM/DL (6.4-8.2)
[2017-08-06] MEDS: ALLOPURINOL 300 MG TAB PO SCH (08:22)
[2017-08-06 09:37] LABS: BANDS 29 % (0-6); LYMPHOCYTES 4 % (9-44); MONOCYTES 4 % (0-8); NEUTROPHIL # MANUAL DIFF 10.6 TH/MM3 (1.8-7.7); POLYS (SEG NEUTROPHILS) 63 % (16-70)
[2017-08-06 09:38] LABS: TOXIC GRANULATION 2+ (NORMAL)
[2017-08-06 12:00] VITALS: BP 137/72; PULSE 59; RESP 18; TEMP 97.8; O2SAT 97
[2017-08-06 16:00] VITALS: BP 138/72; PULSE 70; RESP 18; TEMP 97.9; O2SAT 96
--- NOTE | 2017-08-06 16:44 | HHI.PR ---
Subjective Remarks Patient c/o abd pain Objective Vitals Vital Signs Date Time Temp Pulse Resp B/P (MAP) Pulse Ox O2 Delivery O2 Flow Rate FiO2 08/06/17 16:00 97.9 70 18 138/72 (94) 96 08/06/17 12:00 97.8 59 18 137/72 (93) 97 08/06/17 08:00 100.3 70 18 141/72 (95) 95 08/06/17 05:36 18 08/06/17 00:00 99.6 68 18 139/66 (90) 94 08/05/17 20:00 97.9 67 16 118/56 (76) 98 Result Diagram: 08/06/17 0551 08/06/17 0551 Other Results Laboratory Tests Test 08/04/17 10:19 08/05/17 06:57 08/06/17 05:51 White Blood Count 8.4 TH/MM3 11.5 TH/MM3 Red Blood Count 3.45 MIL/MM3 3.56 MIL/MM3 Hemoglobin 10.6 GM/DL 10.6 GM/DL Hematocrit 30.6 % 31.5 % Mean Corpuscular Volume 88.7 FL 88.6 FL Mean Corpuscular Hemoglobin 30.7 PG 29.8 PG Mean Corpuscular Hemoglobin Concent 34.6 % 33.7 % Red Cell Distribution Width 14.7 % 14.7 % Platelet Count 136 TH/MM3 170 TH/MM3 Mean Platelet Volume 7.8 FL 8.2 FL Neutrophils (%) (Auto) 84.1 % 82.2 % Lymphocytes (%) (Auto) 7.3 % 8.7 % Monocytes (%) (Auto) 8.5 % 8.7 % Eosinophils (%) (Auto) 0.0 % 0.3 % Basophils (%) (Auto) 0.1 % 0.1 % Neutrophils # (Auto) 7.1 TH/MM3 9.5 TH/MM3 Lymphocytes # (Auto) 0.6 TH/MM3 1.0 TH/MM3 Monocytes # (Auto) 0.7 TH/MM3 1.0 TH/MM3 Eosinophils # (Auto) 0.0 TH/MM3 0.0 TH/MM3 Basophils # (Auto) 0.0 TH/MM3 0.0 TH/MM3 CBC Comment DIFF FINAL AUTO DIFF Differential Comment FINAL DIFF MANUAL Blood Urea Nitrogen 27 MG/DL 28 MG/DL 26 MG/DL Creatinine 1.53 MG/DL 1.51 MG/DL 1.43 MG/DL Random Glucose 115 MG/DL 106 MG/DL 100 MG/DL Total Protein 5.2 GM/DL 5.2 GM/DL 5.4 GM/DL Albumin 2.4 GM/DL 2.3 GM/DL Calcium Level 7.0 MG/DL 7.1 MG/DL 7.2 MG/DL Alkaline Phosphatase 113 U/L 131 U/L Aspartate Amino Transf (AST/SGOT) 36 U/L 29 U/L Alanine Aminotransferase (ALT/SGPT) 119 U/L 88 U/L Total Bilirubin 1.0 MG/DL 0.8 MG/DL Sodium Level 146 MEQ/L 148 MEQ/L 145 MEQ/L Potassium Level 3.4 MEQ/L 3.6 MEQ/L 3.5 MEQ/L Chloride Level 114 MEQ/L 117 MEQ/L 114 MEQ/L Carbon Dioxide Level 21.9 MEQ/L 21.3 MEQ/L 19.9 MEQ/L Anion Gap 10 MEQ/L 10 MEQ/L 11 MEQ/L Estimat Glomerular Filtration Rate 44 ML/MIN 45 ML/MIN 48 ML/MIN Protein Corrected Calcium 8.0 MG/DL 8.1 MG/DL 8.1 MG/DL Lipase 171 U/L 103 U/L Direct Bilirubin 0.3 MG/DL Indirect Bilirubin 0.5 MG/DL Differential Total Cells Counted 100 Neutrophils % (Manual) 63 % Band Neutrophils % 29 % Lymphocytes % 4 % Monocytes % 4 % Neutrophils # (Manual) 10.6 TH/MM3 Toxic Granulation 2+ Platelet Estimate NORMAL Platelet Morphology Comment NORMAL Red Cell Morphology Comment NORMAL Magnesium Level 2.1 MG/DL Imaging Last Impressions Abdomen X-Ray 08/03/17 0000 Signed Impressions: Service Date/Time: Thursday, August 03, 2017 12:50 - CONCLUSION: Mild gaseous distention of large bowel. Jamie Khan MD Abdomen/Pelvis CT 08/01/17 0021 Signed Impressions: Service Date/Time: Tuesday, August 01, 2017 01:15 - CONCLUSION: 1. Acute pancreatitis and duodenitis. There is edema and scattered small collections of fluid without anything organized, thickwalled or drainable. 2. Suspected cholelithiasis although a stone is not discretely visible on today's CT. No ductal dilatation is demonstrated. 3. 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 4. Sigmoid colon diverticulosis. No diverticulitis. No bowel obstruction. Mino Espinoza MD Cholangiopancreatography MRI 08/01/17 0000 Signed Impressions: Service Date/Time: Tuesday, August 01, 2017 11:42 - CONCLUSION: 1. Findings again consistent with acute pancreatitis. 2. Moderate amount of sludge in the gallbladder. 3. Intrahepatic and extrahepatic biliary ducts within normal limits. Oniel Alonzo MD Objective Remarks GENERAL: This is a well-nourished, well-developed patient CARDIOVASCULAR: Regular rate and rhythm RESPIRATORY: Clear to auscultation. Breath sounds equal bilaterally. GASTROINTESTINAL: Abdomen soft, generalized tenderness, nondistended. few hypoactive BS MUSCULOSKELETAL: Extremities without clubbing, cyanosis, or edema. NEURO: Awake and Alert. Moves all ext x4 A/P Problem List: (1) Acute gallstone pancreatitis ICD Codes: K85.10 - Biliary acute pancreatitis without necrosis or infection Status: Acute Plan: gallstone pancreatitis - Pt is a 76 y/o male with hyperlipidemia, BPH, hypothyroidism and chronic renal insufficiency who presented to the ED with complaints of N/V and upper abdominal pain that radiated to his back. - Pt had been planned for outpt cholecystectomy next week with Dr. Cali - Labs at admission revealed Lipase 56,593, Tbili 2.2, AST 1094, ALT 581 - CT Abd/pelvis (08/01/17) --> Acute pancreatitis and duodenitis. There is edema and scattered small collections of fluid without anything organized, thick walled or drainable. Suspected cholelithiasis although a stone is not discretely visible on today's CT. No ductal dilatation is demonstrated. 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 Sigmoid colon diverticulosis. No diverticulitis. No bowel obstruction. - MRCP (08/01/17) --> Findings again consistent with acute pancreatitis. Moderate amount of sludge in the gallbladder. Intrahepatic and extrahepatic biliary ducts within normal limits. - Cont. IV Levaquin and Flagyl -- KUB (08/03) --> Mild gaseous distention of large bowel - KUB 08/04..read as benign - Repeat LFTs and Lipase are improving - continue to monitor bowel function closely. given dose relistor on 08/03 - positive flatus (08/05) - GI has signed off - Gen surg recommending f/u outpatient with Dr. Cali in 2 weeks with outpatient cholecystectomy in 6-8 weeks - clear liquids - On 08/03 pt has had increased abd pain and distension. - Ativan PRN - Pain control PRN - Zofran PRN - Supportive care - Daily PT - DVT prophylaxis with SCDs hypernatremia IVF to 1/2 NS - recheck labs in AM Constipation - encouraged patient to only use pain medication when needed - dilaudid IV only for breakthrough pain - ultram for pain - KUB now and in AM - miralax daily, MOM now and dulcolax supp now - encourage ambulation (2) Abdominal pain ICD Codes: R10.9 - Unspecified abdominal pain Status: Acute Plan: - See above Assessment and Plan Patient examined. Assessment and plan formulated with Yeny Burton PA-C. I agree with the above. Yeny Burton Aug 06, 2017 16:44 Yash Escobar DO Aug 08, 2017 23:42
[2017-08-06] MEDS ORDERED: BISACODYL 10 MG SUPP RECTAL ONE (16:45)
[2017-08-06] MEDS ORDERED: MAGNESIUM HYDROXIDE SUSP 30 ML CUP PO ONE (16:45)
[2017-08-06] MEDS: POLYETHYLENE GLYCOL 17 GM PKG PO SCH (17:58)
[2017-08-06] MEDS ORDERED: CALCIUM GLUCONATE INJ 1 GM in DEXTROSE 5% IN WATER 100ML INJ 100 ML IV ONE ×2 (18:00)
[2017-08-06] MEDS: traMADol HCL 50 MG TAB PO PRN (18:00)
--- NOTE | 2017-08-06 18:17 | RADRPT ---
EXAM DATE/TIME: 08/06/2017 16:59 [facility] COMPARISON: ABDOMEN KUB ONLY, August 04, 2017, 8:39. INDICATIONS : Abdominal distention, evaluate ileus MEDICAL HISTORY : Hypertension. Renal insufficiency. SURGICAL HISTORY : Nephrectomy, right. Appendectomy. ENCOUNTER: Subsequent ACUITY: 4 - 6 days PAIN SCORE: 10/10 LOCATION: abdomen, inferior. FINDINGS: Upper limits of normal caliber small and large bowel again seen, decreased. No abrupt caliber changes . No free air demonstrated. CONCLUSION: Slight ileus, decreasing. Mino Espinoza MD on August 06, 2017 at 18:15 Board Certified Radiologist. This report was verified electronically.
[2017-08-06 20:00] VITALS: BP 138/67; PULSE 66; RESP 18; TEMP 96.7; O2SAT 97
[2017-08-06] MEDS: TERAZOSIN HCL 5 MG CAP PO SCH (21:35)
[2017-08-06] MEDS: LORazepam 2 MG/ML VIAL IV PUSH PRN (21:35)
[2017-08-07] MEDS: 1/2 NS + KCL 20 MEQ INJ 1,000 ML IV SCH ×2 (00:06→17:37)
[2017-08-07] MEDS: LISINOPRIL 10 MG TAB PO SCH (00:41)
[2017-08-07] MEDS: metroNIDAZOLE 500 MG INJ 100 ML IV SCH ×4 (04:15→20:29)
[2017-08-07] MEDS: traMADol HCL 50 MG TAB PO PRN ×3 (04:15→16:11)
[2017-08-07] MEDS: LEVOTHYROXINE SODIUM 50 MCG TAB PO SCH (04:15)
[2017-08-07 07:04] LABS: BASOPHIL % 0.1 % (0.0-2.0); EOSINOPHIL % 0.4 % (0.0-4.0); HEMATOCRIT 30.7 % (39.0-51.0); HEMOGLOBIN 10.5 GM/DL (13.0-17.0); LYMPH % 7.1 % (9.0-44.0); LYMPHOCYTE # 0.8 TH/MM3 (1.0-4.8); MEAN CELL VOLUME 87.7 FL (80.0-100.0); MEAN CORPUSCULAR HGB CONC 34.2 % (32.0-36.0); MEAN PLATELET VOLUME 8.3 FL (7.0-11.0); MONO % 9.1 % (0.0-8.0); MONOCYTE # 1.1 TH/MM3 (0-0.9); NEUT % 83.3 % (16.0-70.0); PLATELET COUNT 190 TH/MM3 (150-450); RED BLOOD COUNT 3.51 MIL/MM3 (4.50-5.90); RED CELL DISTRIBUTION WIDTH 14.6 % (11.6-17.2)
[2017-08-07 07:34] LABS: BICARBONATE 21.5 MEQ/L (21.0-32.0); CALCIUM 7.1 MG/DL (8.5-10.1); CALCIUM-PROTEIN CORRECTED 8.1 MG/DL (8.5-10.1); CREATININE 1.34 MG/DL (0.60-1.30); TOTAL BILIRUBIN ADULT 0.7 MG/DL (0.2-1.0); TOTAL PROTEIN 5.2 GM/DL (6.4-8.2)
[2017-08-07 08:00] VITALS: BP 140/76; PULSE 74; RESP 16; TEMP 96.1; O2SAT 96
[2017-08-07] MEDS: ALLOPURINOL 300 MG TAB PO SCH (08:40)
[2017-08-07] MEDS: POLYETHYLENE GLYCOL 17 GM PKG PO SCH (08:43)
--- NOTE | 2017-08-07 09:32 | RADRPT ---
EXAM DATE/TIME: 08/07/2017 09:08 [facility] COMPARISON: ABDOMEN KUB ONLY, August 06, 2017, 16:59. INDICATIONS : Distention MEDICAL HISTORY : Gallstone pancreatitis SURGICAL HISTORY : Nephrectomy, right. Appendectomy. ENCOUNTER: Subsequent ACUITY: 1 week PAIN SCORE: 9/10 LOCATION: Bilateral Abdomen FINDINGS: Supine view of the abdomen was performed. The abdominal bowel gas pattern is normal. No abnormal ma sses, calcifications, or organomegaly is seen. The osseous structures demonstrate degenerative jiang es within the hips and lower lumbar spine.. Incidental note is made of surgical clips in the right si de of the abdomen. CONCLUSION: 1. Benign-appearing KUB. Mumtaz Flor MD on August 07, 2017 at 9:28 Board Certified Radiologist. This report was verified electronically.
[2017-08-07] MEDS: SODIUM CHLORIDE 0.9% FLUSH 10 ML FLUSH IV FLUSH PRN (09:57)
[2017-08-07] MEDS: ONDANSETRON HCL 4 MG/2 ML VIAL IV PUSH PRN ×3 (10:20→20:28)
[2017-08-07] MEDS: LEVOFLOXACIN 750 MG PREMIX INJ 150 ML IV SCH (10:21)
[2017-08-07] MEDS: HYDROmorphone HCL PF 2 MG/ML VIAL IV PUSH PRN ×2 (10:21→17:41)
[2017-08-07 12:00] VITALS: BP 139/71; PULSE 70; RESP 16; TEMP 96.9; O2SAT 95
[2017-08-07 16:00] VITALS: BP 134/76; PULSE 70; RESP 16; TEMP 98.4; O2SAT 96
--- NOTE | 2017-08-07 18:44 | HHI.PR ---
Subjective Remarks Pt c/o continued abdominal pain. Objective Vitals Vital Signs Date Time Temp Pulse Resp B/P (MAP) Pulse Ox O2 Delivery O2 Flow Rate FiO2 08/07/17 16:00 98.4 70 16 134/76 (95) 96 08/07/17 12:00 96.9 70 16 139/71 (93) 95 08/07/17 09:57 18 08/07/17 08:00 96.1 74 16 140/76 (97) 96 08/06/17 20:00 96.7 66 18 138/67 (90) 97 08/07/17 08/07/17 08/08/17 15:00 23:00 07:00 Intake Total 1200 ml Output Total 800 ml Balance 400 ml Intake Oral 1200 ml Output Urine Total 800 ml # Voids 4 # Bowel Movements 2 Result Diagram: 08/07/17 0600 08/07/17 0600 Imaging Last Impressions Abdomen X-Ray 08/03/17 0000 Signed Impressions: Service Date/Time: Thursday, August 03, 2017 12:50 - CONCLUSION: Mild gaseous distention of large bowel. Jamie Khan MD Abdomen/Pelvis CT 08/01/17 0021 Signed Impressions: Service Date/Time: Tuesday, August 01, 2017 01:15 - CONCLUSION: 1. Acute pancreatitis and duodenitis. There is edema and scattered small collections of fluid without anything organized, thickwalled or drainable. 2. Suspected cholelithiasis although a stone is not discretely visible on today's CT. No ductal dilatation is demonstrated. 3. 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 4. Sigmoid colon diverticulosis. No diverticulitis. No bowel obstruction. Mino Espinoza MD Cholangiopancreatography MRI 08/01/17 0000 Signed Impressions: Service Date/Time: Tuesday, August 01, 2017 11:42 - CONCLUSION: 1. Findings again consistent with acute pancreatitis. 2. Moderate amount of sludge in the gallbladder. 3. Intrahepatic and extrahepatic biliary ducts within normal limits. Oniel Alonzo MD Objective Remarks GENERAL: This is a well-nourished, well-developed patient CARDIOVASCULAR: Regular rate and rhythm RESPIRATORY: Clear to auscultation. Breath sounds equal bilaterally. GASTROINTESTINAL: Abdomen soft, generalized tenderness, nondistended. few hypoactive BS MUSCULOSKELETAL: Extremities without clubbing, cyanosis, or edema. NEURO: Awake and Alert. Moves all ext x4 A/P Problem List: (1) Acute gallstone pancreatitis ICD Codes: K85.10 - Biliary acute pancreatitis without necrosis or infection Status: Acute Plan: gallstone pancreatitis - Pt is a 76 y/o male with hyperlipidemia, BPH, hypothyroidism and chronic renal insufficiency who presented to the ED with complaints of N/V and upper abdominal pain that radiated to his back. - Pt had been planned for outpt cholecystectomy next week with Dr. Cali - Labs at admission revealed Lipase 56,593, Tbili 2.2, AST 1094, ALT 581 - CT Abd/pelvis (08/01/17) --> Acute pancreatitis and duodenitis. There is edema and scattered small collections of fluid without anything organized, thick walled or drainable. Suspected cholelithiasis although a stone is not discretely visible on today's CT. No ductal dilatation is demonstrated. 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 Sigmoid colon diverticulosis. No diverticulitis. No bowel obstruction. - MRCP (08/01/17) --> Findings again consistent with acute pancreatitis. Moderate amount of sludge in the gallbladder. Intrahepatic and extrahepatic biliary ducts within normal limits. - Cont. IV Levaquin and Flagyl -- KUB (08/03) --> Mild gaseous distention of large bowel - KUB 08/04..read as benign - Repeat LFTs and Lipase are improving - continue to monitor bowel function closely. given dose relistor on 08/03 - positive flatus (08/05) - GI has signed off - Gen surg recommending f/u outpatient with Dr. Cali in 2 weeks with outpatient cholecystectomy in 6-8 weeks - clear liquids - On 08/03 pt has had increased abd pain and distension. - Ativan PRN - Pain control PRN - Zofran PRN - Supportive care - Daily PT - DVT prophylaxis with SCDs hypernatremia IVF to 1/2 NS - recheck labs in AM Constipation - encouraged patient to only use pain medication when needed - dilaudid IV only for breakthrough pain - ultram for pain - KUB now and in AM - miralax daily, MOM now and dulcolax supp now - encourage ambulation (2) Abdominal pain ICD Codes: R10.9 - Unspecified abdominal pain Status: Acute Plan: - See above Yash Escobar DO Aug 07, 2017 18:44
[2017-08-07 20:00] VITALS: BP 147/70; PULSE 75; RESP 20; TEMP 97.7; O2SAT 96
[2017-08-07] MEDS: ACETAMINOPHEN/HYDROcodone 325 MG/5 MG TAB PO PRN (20:28)
[2017-08-07] MEDS: TERAZOSIN HCL 5 MG CAP PO SCH (20:28)
[2017-08-08 00:53] VITALS: BP 134/71; PULSE 76; RESP 20; TEMP 97.2; O2SAT 95
[2017-08-08] MEDS: ONDANSETRON HCL 4 MG/2 ML VIAL IV PUSH PRN ×5 (01:26→22:49)
[2017-08-08] MEDS: LISINOPRIL 10 MG TAB PO SCH (01:26)
[2017-08-08] MEDS: ACETAMINOPHEN/HYDROcodone 325 MG/5 MG TAB PO PRN ×6 (01:26→22:46)
[2017-08-08] MEDS: 1/2 NS + KCL 20 MEQ INJ 1,000 ML IV SCH ×2 (03:05→09:35)
[2017-08-08] MEDS: metroNIDAZOLE 500 MG INJ 100 ML IV SCH ×4 (04:47→22:47)
[2017-08-08] MEDS: LEVOTHYROXINE SODIUM 50 MCG TAB PO SCH (04:48)
[2017-08-08 06:21] LABS: AUTOMATED NEUTROPHIL # 12.6 TH/MM3 (1.8-7.7); BASOPHIL % 0.1 % (0.0-2.0); EOSINOPHIL % 0.2 % (0.0-4.0); HEMATOCRIT 32.3 % (39.0-51.0); HEMOGLOBIN 10.9 GM/DL (13.0-17.0); MEAN CELL VOLUME 87.9 FL (80.0-100.0); MEAN CORPUSCULAR HEMOGLOBIN 29.7 PG (27.0-34.0); MEAN CORPUSCULAR HGB CONC 33.8 % (32.0-36.0); MEAN PLATELET VOLUME 8.6 FL (7.0-11.0); MONO % 7.3 % (0.0-8.0); MONOCYTE # 1.1 TH/MM3 (0-0.9); NEUT % 85.4 % (16.0-70.0); PLATELET COUNT 230 TH/MM3 (150-450); RED BLOOD COUNT 3.68 MIL/MM3 (4.50-5.90); RED CELL DISTRIBUTION WIDTH 14.8 % (11.6-17.2); WHITE BLOOD COUNT 14.7 TH/MM3 (4.0-11.0)
[2017-08-08 07:04] LABS: ALBUMIN 2.2 GM/DL (3.4-5.0); BICARBONATE 20.1 MEQ/L (21.0-32.0); CALCIUM 7.4 MG/DL (8.5-10.1); CALCIUM-PROTEIN CORRECTED 8.3 MG/DL (8.5-10.1); CREATININE 1.33 MG/DL (0.60-1.30); TOTAL BILIRUBIN ADULT 0.8 MG/DL (0.2-1.0); TOTAL PROTEIN 5.5 GM/DL (6.4-8.2)
[2017-08-08 08:00] VITALS: BP 154/72; PULSE 88; RESP 18; TEMP 98.1; O2SAT 97
[2017-08-08] MEDS: POLYETHYLENE GLYCOL 17 GM PKG PO SCH (09:00)
[2017-08-08] MEDS: ALLOPURINOL 300 MG TAB PO SCH (09:35)
[2017-08-08] MEDS ORDERED: DIATRIZOATE MEGLUM/DIATRIZOATE SOD 9 ML CUP PO ONE (09:43)
--- NOTE | 2017-08-08 11:02 | RADRPT ---
EXAM DATE/TIME: 08/08/2017 10:28 [facility] COMPARISON: No previous studies available for comparison. INDICATIONS : Lightheaded. MEDICAL HISTORY : Gallstone. Pancreatitis SURGICAL HISTORY : Umbilical hernia repair. Nephrectomy, right. Appendectomy. ENCOUNTER: Initial ACUITY: 1 day PAIN SCORE: 0/10 LOCATION: Bilateral chest FINDINGS: A single view of the chest demonstrates the lungs to be symmetrically aerated without evidence of mas s, infiltrate or effusion. The cardiomediastinal contours are unremarkable. Osseous structures are intact. CONCLUSION: No acute disease. Bailey Gan MD on August 08, 2017 at 10:59 Board Certified Radiologist. This report was verified electronically.
--- NOTE | 2017-08-08 11:48 | HHI.PR ---
Subjective Remarks Patient continues to report abd pain and nausea Objective Vitals Vital Signs Date Time Temp Pulse Resp B/P (MAP) Pulse Ox O2 Delivery O2 Flow Rate FiO2 08/08/17 08:00 98.1 88 18 154/72 (99) 97 08/08/17 00:53 97.2 76 20 134/71 (92) 95 08/07/17 20:00 97.7 75 20 147/70 (95) 96 08/07/17 16:00 98.4 70 16 134/76 (95) 96 08/07/17 12:00 96.9 70 16 139/71 (93) 95 Result Diagram: 08/08/17 0421 08/08/17 0421 Other Results Laboratory Tests Test 08/06/17 05:51 08/07/17 06:00 08/08/17 04:21 White Blood Count 11.5 TH/MM3 12.0 TH/MM3 14.7 TH/MM3 Red Blood Count 3.56 MIL/MM3 3.51 MIL/MM3 3.68 MIL/MM3 Hemoglobin 10.6 GM/DL 10.5 GM/DL 10.9 GM/DL Hematocrit 31.5 % 30.7 % 32.3 % Mean Corpuscular Volume 88.6 FL 87.7 FL 87.9 FL Mean Corpuscular Hemoglobin 29.8 PG 30.0 PG 29.7 PG Mean Corpuscular Hemoglobin Concent 33.7 % 34.2 % 33.8 % Red Cell Distribution Width 14.7 % 14.6 % 14.8 % Platelet Count 170 TH/MM3 190 TH/MM3 230 TH/MM3 Mean Platelet Volume 8.2 FL 8.3 FL 8.6 FL Neutrophils (%) (Auto) 82.2 % 83.3 % 85.4 % Lymphocytes (%) (Auto) 8.7 % 7.1 % 7.0 % Monocytes (%) (Auto) 8.7 % 9.1 % 7.3 % Eosinophils (%) (Auto) 0.3 % 0.4 % 0.2 % Basophils (%) (Auto) 0.1 % 0.1 % 0.1 % Neutrophils # (Auto) 9.5 TH/MM3 10.0 TH/MM3 12.6 TH/MM3 Lymphocytes # (Auto) 1.0 TH/MM3 0.8 TH/MM3 1.0 TH/MM3 Monocytes # (Auto) 1.0 TH/MM3 1.1 TH/MM3 1.1 TH/MM3 Eosinophils # (Auto) 0.0 TH/MM3 0.0 TH/MM3 0.0 TH/MM3 Basophils # (Auto) 0.0 TH/MM3 0.0 TH/MM3 0.0 TH/MM3 CBC Comment AUTO DIFF DIFF FINAL DIFF FINAL Differential Total Cells Counted 100 Neutrophils % (Manual) 63 % Band Neutrophils % 29 % Lymphocytes % 4 % Monocytes % 4 % Neutrophils # (Manual) 10.6 TH/MM3 Differential Comment FINAL DIFF MANUAL Toxic Granulation 2+ Platelet Estimate NORMAL Platelet Morphology Comment NORMAL Red Cell Morphology Comment NORMAL Blood Urea Nitrogen 26 MG/DL 25 MG/DL 24 MG/DL Creatinine 1.43 MG/DL 1.34 MG/DL 1.33 MG/DL Random Glucose 100 MG/DL 109 MG/DL 89 MG/DL Total Protein 5.4 GM/DL 5.2 GM/DL 5.5 GM/DL Calcium Level 7.2 MG/DL 7.1 MG/DL 7.4 MG/DL Magnesium Level 2.1 MG/DL Sodium Level 145 MEQ/L 143 MEQ/L 142 MEQ/L Potassium Level 3.5 MEQ/L 3.9 MEQ/L 4.0 MEQ/L Chloride Level 114 MEQ/L 113 MEQ/L 111 MEQ/L Carbon Dioxide Level 19.9 MEQ/L 21.5 MEQ/L 20.1 MEQ/L Anion Gap 11 MEQ/L 9 MEQ/L 11 MEQ/L Estimat Glomerular Filtration Rate 48 ML/MIN 52 ML/MIN 52 ML/MIN Protein Corrected Calcium 8.1 MG/DL 8.1 MG/DL 8.3 MG/DL Lipase 103 U/L Albumin 2.0 GM/DL 2.2 GM/DL Alkaline Phosphatase 164 U/L 175 U/L Aspartate Amino Transf (AST/SGOT) 25 U/L 25 U/L Alanine Aminotransferase (ALT/SGPT) 51 U/L 42 U/L Total Bilirubin 0.7 MG/DL 0.8 MG/DL Imaging Last Impressions Abdomen X-Ray 08/03/17 0000 Signed Impressions: Service Date/Time: Thursday, August 03, 2017 12:50 - CONCLUSION: Mild gaseous distention of large bowel. Jamie Khan MD Abdomen/Pelvis CT 08/01/17 0021 Signed Impressions: Service Date/Time: Tuesday, August 01, 2017 01:15 - CONCLUSION: 1. Acute pancreatitis and duodenitis. There is edema and scattered small collections of fluid without anything organized, thickwalled or drainable. 2. Suspected cholelithiasis although a stone is not discretely visible on today's CT. No ductal dilatation is demonstrated. 3. 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 4. Sigmoid colon diverticulosis. No diverticulitis. No bowel obstruction. Mino Espinoza MD Cholangiopancreatography MRI 08/01/17 0000 Signed Impressions: Service Date/Time: Tuesday, August 01, 2017 11:42 - CONCLUSION: 1. Findings again consistent with acute pancreatitis. 2. Moderate amount of sludge in the gallbladder. 3. Intrahepatic and extrahepatic biliary ducts within normal limits. Oniel Alonzo MD Objective Remarks GENERAL: This is a well-nourished, well-developed patient CARDIOVASCULAR: Regular rate and rhythm RESPIRATORY: Clear to auscultation. Breath sounds equal bilaterally. GASTROINTESTINAL: Abdomen soft, generalized tenderness, nondistended. few hypoactive BS MUSCULOSKELETAL: Extremities without clubbing, cyanosis, or edema. NEURO: Awake and Alert. Moves all ext x4 A/P Problem List: (1) Acute gallstone pancreatitis ICD Codes: K85.10 - Biliary acute pancreatitis without necrosis or infection Status: Acute Plan: Gallstone pancreatitis - Pt is a 76 y/o male with hyperlipidemia, BPH, hypothyroidism and chronic renal insufficiency who presented to the ED with complaints of N/V and upper abdominal pain that radiated to his back. - Pt had been planned for outpt cholecystectomy next week with Dr. Cali - Labs at admission revealed Lipase 56,593, Tbili 2.2, AST 1094, ALT 581 - CT Abd/pelvis (08/01/17) --> Acute pancreatitis and duodenitis. There is edema and scattered small collections of fluid without anything organized, thick walled or drainable. Suspected cholelithiasis although a stone is not discretely visible on today's CT. No ductal dilatation is demonstrated. 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 Sigmoid colon diverticulosis. No diverticulitis. No bowel obstruction. - MRCP (08/01/17) --> Findings again consistent with acute pancreatitis. Moderate amount of sludge in the gallbladder. Intrahepatic and extrahepatic biliary ducts within normal limits. - Cont. IV Levaquin and Flagyl -- KUB (08/03) --> Mild gaseous distention of large bowel - KUB 08/04..read as benign - Repeat LFTs and Lipase are improving - continue to monitor bowel function closely. given dose relistor on 08/03 - positive BM (08/08) - GI has signed off - Gen surg recommending f/u outpatient with Dr. Cali in 2 weeks with outpatient cholecystectomy in 6-8 weeks - clear liquids - On 08/03 pt has had increased abd pain and distension. - Ativan PRN - Pain control PRN - Zofran PRN - Supportive care - Daily PT - DVT prophylaxis with SCDs Hypernatremia - resolved - IVF to 05/26 NS - recheck labs in AM Constipation- resolved - encouraged patient to only use pain medication when needed - dilaudid IV only for breakthrough pain - [place] for pain - miralax daily - encourage ambulation - BM (08/08) Patient now with mild elevation of WBC 14.7 (08/08) - CXR, UA and CT abd requested - recheck CBC in AM - no fevers or chills - continue supportive care (2) Abdominal pain ICD Codes: R10.9 - Unspecified abdominal pain Status: Acute Plan: - See above Assessment and Plan Patient examined. Assessment and plan formulated with Yeny Burton PA-C. I agree with the above. despite complaints. Pt appeared overall more comfortable today Continue on clear diet encourage OOB to chair and ambulation. reevaluate 08/09. Hopefully will be able to advance diet 08/09. Yeny Burton Aug 08, 2017 11:48 Yash Escobar DO Aug 08, 2017 23:46
[2017-08-08 12:20] VITALS: BP 146/78; PULSE 87; RESP 18; TEMP 99.3; O2SAT 95
[2017-08-08 12:21] LABS: BILIRUBIN, URINE NEG (NEG); BLOOD, URINE SMALL (NEG); GLUCOSE,URINE NEG (NEG); KETONE, URINE 40 mg/dL (NEG); MUCUS URINE FEW /lpf (OCC); NITRITE,URINE NEG (NEG); PH, URINE 5.5 (5.0-8.5); SQUAMOUS EPITHELIAL CELL URINE <1 /hpf (0-5); URINE COLOR YELLOW (YELLW/STRAW); URINE LEUKOCYTE ESTERASE TRACE (NEG)
[2017-08-08] MEDS: PROMETHAZINE HCL 25 MG TAB PO PRN ×2 (12:40→19:45)
[2017-08-08] MEDS ORDERED: IODIXANOL 320 MG/ML 10 ML VIAL (for Rad CT) IVCONTRAST ONE (14:10)
--- NOTE | 2017-08-08 14:28 | RADRPT ---
EXAM DATE/TIME: 08/08/2017 14:09 [facility] COMPARISON: CT ABDOMEN & PELVIS W/O CONTRAST, August 01, 2017, 1:15. INDICATIONS : Upper abdomen pain and elevated white blood cell count. IV CONTRAST: 50 cc Visipaque (iodixanol) IV ORAL CONTRAST: Prescribed oral contrast ingested. RADIATION DOSE: 13.68 CTDIvol (mGy) MEDICAL HISTORY : Hypertension. skin cancer SURGICAL HISTORY : Appendectomy. Nephrectomy, right. ENCOUNTER: Initial ACUITY: 1 day PAIN SCALE: 7/10 LOCATION: Bilateral upper quadrant TECHNIQUE: Volumetric scanning of the abdomen and pelvis was performed. Using automated exposure control and ad justment of the mA and/or kV according to patient size, radiation dose was kept as low as reasonably achievable to obtain optimal diagnostic quality images. DICOM format image data is available electro nically for review and comparison. FINDINGS: The limited portion of lung bases visualized demonstrate small bilateral effusions. The heart is norm al in size. Of note, the aortic root is dilated at 4.2 cm. The appearance of the liver is within normal limits. There are punctate granulomatous calcifications within the spleen. The adrenal glands are intact. The left kidney is intact. The patient is post righ t nephrectomy. There is extensive inflammatory stranding and fluid around the pancreas consistent with acute pancrea titis. The splenic vein is patent. No hemorrhage is identified. There is fluid tracking down into the right paracolic gutter. The study is compared to the prior CT scan dated 08/01/17. The overall amount of inflammatory change and fluid around the pancreas has increased. There is no free intraperitoneal air. No retroperitoneal adenopathy is seen. The abdominal aorta is n ormal in caliber. There is no free fluid within the pelvis. No iliac or inguinal adenopathy is present. The loops of sm all and large bowel within the pelvis are unremarkable. There are degenerative changes within the spine. CONCLUSION: 1. The examination demonstrates findings consistent with acute pancreatitis. There is fairly extensiv e inflammatory stranding around the pancreas with fluid tracking down to the right paracolic gutter. Comparison is made to the previous CT scan dated 08/01/17. The overall amount of inflammatory change a round the pancreas and the fluid around the pancreas has significantly increased. No organized, drain able fluid collection is identified. 2. The patient is post right nephrectomy. 3. There are small bilateral effusions. Mumtaz Flor MD on August 08, 2017 at 14:18 Board Certified Radiologist. This report was verified electronically.
[2017-08-08 16:08] VITALS: BP 135/72; PULSE 66; RESP 18; TEMP 98.5; O2SAT 97
[2017-08-08] MEDS: LEVOFLOXACIN 750 MG PREMIX INJ 150 ML IV SCH (19:29)
[2017-08-08] MEDS: TERAZOSIN HCL 5 MG CAP PO SCH (19:45)
[2017-08-08] MEDS: HYDROmorphone HCL PF 2 MG/ML VIAL IV PUSH PRN (19:46)
[2017-08-08 20:00] VITALS: BP 143/69; PULSE 90; RESP 20; TEMP 98.8; O2SAT 96
[2017-08-09] VITALS: BP 144/78; PULSE 98; RESP 20; TEMP 98.6; O2SAT 100
[2017-08-09] MEDS: LISINOPRIL 10 MG TAB PO SCH (00:33)
[2017-08-09] MEDS: ACETAMINOPHEN/HYDROcodone 325 MG/5 MG TAB PO PRN ×4 (02:55→22:26)
[2017-08-09] MEDS: metroNIDAZOLE 500 MG INJ 100 ML IV SCH ×4 (02:56→21:02)
[2017-08-09] MEDS: 1/2 NS + KCL 20 MEQ INJ 1,000 ML IV SCH ×2 (02:56→17:37)
[2017-08-09 04:03] LABS: BILIRUBIN, URINE NEG (NEG); BLOOD, URINE TRACE (NEG); GLUCOSE,URINE NEG (NEG); KETONE, URINE 40 mg/dL (NEG); MUCUS URINE FEW /lpf (OCC); NITRITE,URINE NEG (NEG); PH, URINE 5.5 (5.0-8.5); SQUAMOUS EPITHELIAL CELL URINE <1 /hpf (0-5); URINE COLOR YELLOW (YELLW/STRAW); URINE LEUKOCYTE ESTERASE NEG (NEG)
[2017-08-09] MEDS: HYDROmorphone HCL PF 2 MG/ML VIAL IV PUSH PRN ×3 (05:32→18:33)
[2017-08-09] MEDS: ONDANSETRON HCL 4 MG/2 ML VIAL IV PUSH PRN ×3 (05:32→18:33)
[2017-08-09] MEDS: LEVOTHYROXINE SODIUM 50 MCG TAB PO SCH (05:34)
[2017-08-09 08:00] VITALS: BP 136/76; PULSE 104; RESP 18; TEMP 97.6; O2SAT 97
[2017-08-09] MEDS: POLYETHYLENE GLYCOL 17 GM PKG PO SCH (08:40)
[2017-08-09] MEDS: ALLOPURINOL 300 MG TAB PO SCH (08:41)
[2017-08-09] MEDS: PROMETHAZINE HCL 25 MG TAB PO PRN ×3 (08:41→22:27)
[2017-08-09] MEDS: LEVOFLOXACIN 750 MG PREMIX INJ 150 ML IV SCH (08:41)
[2017-08-09 12:00] VITALS: BP 153/74; PULSE 72; RESP 17; TEMP 99.7; O2SAT 96
--- NOTE | 2017-08-09 15:35 | HHI.PR ---
Subjective Remarks Pt states that he gags when he tries to drink liquids. feels that pt has chronic anxiety but more anxious with illness. Objective Vitals Vital Signs Date Time Temp Pulse Resp B/P (MAP) Pulse Ox O2 Delivery O2 Flow Rate FiO2 08/09/17 12:00 99.7 72 17 153/74 (100) 96 08/09/17 08:00 97.6 104 18 136/76 (96) 97 08/09/17 00:00 98.6 98 20 144/78 (100) 100 08/08/17 20:00 98.8 90 20 143/69 (93) 96 08/08/17 16:08 98.5 66 18 135/72 (93) 97 08/09/17 08/09/17 08/10/17 14:59 22:59 06:59 Intake Total 150 ml Balance 150 ml IV Total 150 ml Result Diagram: 08/08/17 0421 08/08/17 0421 Imaging Last Impressions Chest X-Ray 08/08/17 0000 Signed Impressions: Service Date/Time: Tuesday, August 08, 2017 10:28 - CONCLUSION: No acute disease. Bailey Gan MD Abdomen/Pelvis CT 08/08/17 0000 Signed Impressions: Service Date/Time: Tuesday, August 08, 2017 14:09 - CONCLUSION: 1. The examination demonstrates findings consistent with acute pancreatitis. There is fairly extensive inflammatory stranding around the pancreas with fluid tracking down to the right paracolic gutter. Comparison is made to the previous CT scan dated 08/01/17. The overall amount of inflammatory change around the pancreas and the fluid around the pancreas has significantly increased. No organized, drainable fluid collection is identified. 2. The patient is post right nephrectomy. 3. There are small bilateral effusions. Mumtaz Flor MD Abdomen X-Ray 08/07/17 0600 Signed Impressions: Service Date/Time: Monday, August 07, 2017 09:08 - CONCLUSION: 1. Benign-appearing KUB. Mumtaz Flor MD Cholangiopancreatography MRI 08/01/17 0000 Signed Impressions: Service Date/Time: Tuesday, August 01, 2017 11:42 - CONCLUSION: 1. Findings again consistent with acute pancreatitis. 2. Moderate amount of sludge in the gallbladder. 3. Intrahepatic and extrahepatic biliary ducts within normal limits. Oniel Alonzo MD Objective Remarks GENERAL: This is a well-nourished, well-developed patient CARDIOVASCULAR: Regular rate and rhythm RESPIRATORY: Clear to auscultation. Breath sounds equal bilaterally. GASTROINTESTINAL: Abdomen soft, generalized tenderness which is mild and has improved over the course of the week, nondistended. +BS x 4 MUSCULOSKELETAL: Extremities without clubbing, cyanosis, or edema. NEURO: Awake and Alert. Moves all ext x4 A/P Problem List: (1) Acute gallstone pancreatitis ICD Codes: K85.10 - Biliary acute pancreatitis without necrosis or infection Status: Acute Plan: gallstone pancreatitis - Pt is a 76 y/o male with hyperlipidemia, BPH, hypothyroidism and chronic renal insufficiency who presented to the ED with complaints of N/V and upper abdominal pain that radiated to his back. - Pt had been planned for outpt cholecystectomy next week with Dr. Cali - Labs at admission revealed Lipase 56,593, Tbili 2.2, AST 1094, ALT 581 - CT Abd/pelvis (08/01/17) --> Acute pancreatitis and duodenitis. There is edema and scattered small collections of fluid without anything organized, thick walled or drainable. Suspected cholelithiasis although a stone is not discretely visible on today's CT. No ductal dilatation is demonstrated. 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 Sigmoid colon diverticulosis. No diverticulitis. No bowel obstruction. - MRCP (08/01/17) --> Findings again consistent with acute pancreatitis. Moderate amount of sludge in the gallbladder. Intrahepatic and extrahepatic biliary ducts within normal limits. - Cont. IV Levaquin and Flagyl -- KUB (08/03) --> Mild gaseous distention of large bowel - KUB 08/04..read as benign - Repeat LFTs and Lipase are improving - continue to monitor bowel function closely. given dose relistor on 08/03 - continued flasus since 08/05 - GI has signed off - Gen surg recommending f/u outpatient with Dr. Cali in 2 weeks with outpatient cholecystectomy in 6-8 weeks - clear liquids - obtain Speech Therapy swallow evaluation - WBC is elevating. 14.7K (08/09), no fever. Repeat CBC in AM. Possibly d/t pancreatitis - IVFs - requesting that pt have cholecystectomy during current admission. In view of pt's pancreatitis, this seems unlikely. Surgery recommended waiting 4-6 weeks before cholecystectomy. - Will d/w General Surgery (08/10) - start xanax 0.25mg daily - Ativan PRN - Pain control PRN - Zofran PRN - Supportive care - Daily PT - DVT prophylaxis with SCDs hypernatremia IVF to 1/2 NS - recheck labs in AM Constipation - encouraged patient to only use pain medication when needed - dilaudid IV only for breakthrough pain - ultram for pain - KUB now and in AM - miralax daily, MOM now and dulcolax supp now - encourage ambulation (2) Abdominal pain ICD Codes: R10.9 - Unspecified abdominal pain Status: Acute Plan: - See above Yash Escobar DO Aug 09, 2017 15:35
[2017-08-09 16:00] VITALS: BP 146/74; PULSE 101; RESP 16; TEMP 99.3; O2SAT 97
[2017-08-09] MEDS: ALPRAZolam 0.25 MG TAB PO SCH (16:06)
[2017-08-09 20:00] VITALS: BP 138/70; PULSE 99; RESP 20; TEMP 99.9; O2SAT 95
[2017-08-09] MEDS: TERAZOSIN HCL 5 MG CAP PO SCH (21:02)
[2017-08-10] VITALS: BP 131/61; PULSE 97; RESP 20; TEMP 98.2; O2SAT 95
[2017-08-10] MEDS: ONDANSETRON HCL 4 MG/2 ML VIAL IV PUSH PRN ×4 (00:37→20:21)
[2017-08-10] MEDS: LISINOPRIL 10 MG TAB PO SCH (00:37)
[2017-08-10] MEDS: ACETAMINOPHEN/HYDROcodone 325 MG/5 MG TAB PO PRN ×3 (04:14→20:22)
[2017-08-10] MEDS: PROMETHAZINE HCL 25 MG TAB PO PRN (04:14)
[2017-08-10] MEDS: metroNIDAZOLE 500 MG INJ 100 ML IV SCH ×4 (04:15→20:44)
[2017-08-10] MEDS: 1/2 NS + KCL 20 MEQ INJ 1,000 ML IV SCH ×3 (04:15→20:44)
[2017-08-10] MEDS: LEVOTHYROXINE SODIUM 50 MCG TAB PO SCH (06:04)
[2017-08-10] MEDS: HYDROmorphone HCL PF 2 MG/ML VIAL IV PUSH PRN ×2 (06:08→16:19)
[2017-08-10 08:00] VITALS: BP 144/78; PULSE 78; RESP 17; TEMP 96.3; O2SAT 97
[2017-08-10] MEDS: LEVOFLOXACIN 750 MG PREMIX INJ 150 ML IV SCH (09:00)
[2017-08-10] MEDS: POLYETHYLENE GLYCOL 17 GM PKG PO SCH (09:00)
--- NOTE | 2017-08-10 09:45 | HHI.PR ---
Objective Vitals Vital Signs Date Time Temp Pulse Resp B/P (MAP) Pulse Ox O2 Delivery O2 Flow Rate FiO2 08/10/17 08:00 96.3 78 17 144/78 (100) 97 08/10/17 06:38 16 08/10/17 00:00 98.2 97 20 131/61 (84) 95 08/09/17 20:00 99.9 99 20 138/70 (92) 95 08/09/17 16:00 99.3 101 16 146/74 (98) 97 08/09/17 12:00 99.7 72 17 153/74 (100) 96 Result Diagram: 08/08/17 0421 08/08/17 0421 Imaging Last Impressions Chest X-Ray 08/08/17 0000 Signed Impressions: Service Date/Time: Tuesday, August 08, 2017 10:28 - CONCLUSION: No acute disease. Bailey Gan MD Abdomen/Pelvis CT 08/08/17 0000 Signed Impressions: Service Date/Time: Tuesday, August 08, 2017 14:09 - CONCLUSION: 1. The examination demonstrates findings consistent with acute pancreatitis. There is fairly extensive inflammatory stranding around the pancreas with fluid tracking down to the right paracolic gutter. Comparison is made to the previous CT scan dated 08/01/17. The overall amount of inflammatory change around the pancreas and the fluid around the pancreas has significantly increased. No organized, drainable fluid collection is identified. 2. The patient is post right nephrectomy. 3. There are small bilateral effusions. Mumtaz Flor MD Abdomen X-Ray 08/07/17 0600 Signed Impressions: Service Date/Time: Monday, August 07, 2017 09:08 - CONCLUSION: 1. Benign-appearing KUB. Mumtaz Flor MD Cholangiopancreatography MRI 08/01/17 0000 Signed Impressions: Service Date/Time: Tuesday, August 01, 2017 11:42 - CONCLUSION: 1. Findings again consistent with acute pancreatitis. 2. Moderate amount of sludge in the gallbladder. 3. Intrahepatic and extrahepatic biliary ducts within normal limits. Oniel Alonzo MD Objective Remarks GENERAL: This is a well-nourished, well-developed patient CARDIOVASCULAR: Regular rate and rhythm RESPIRATORY: Clear to auscultation. Breath sounds equal bilaterally. GASTROINTESTINAL: Abdomen soft, generalized tenderness which is mild and has improved over the course of the week, nondistended. +BS x 4 MUSCULOSKELETAL: Extremities without clubbing, cyanosis, or edema. NEURO: Awake and Alert. Moves all ext x4 A/P Problem List: (1) Acute gallstone pancreatitis ICD Codes: K85.10 - Biliary acute pancreatitis without necrosis or infection Status: Acute Plan: gallstone pancreatitis - Pt is a 76 y/o male with hyperlipidemia, BPH, hypothyroidism and chronic renal insufficiency who presented to the ED with complaints of N/V and upper abdominal pain that radiated to his back. - Pt had been planned for outpt cholecystectomy next week with Dr. Cali - Labs at admission revealed Lipase 56,593, Tbili 2.2, AST 1094, ALT 581 - CT Abd/pelvis (08/01/17) --> Acute pancreatitis and duodenitis. There is edema and scattered small collections of fluid without anything organized, thick walled or drainable. Suspected cholelithiasis although a stone is not discretely visible on today's CT. No ductal dilatation is demonstrated. 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 Sigmoid colon diverticulosis. No diverticulitis. No bowel obstruction. - MRCP (08/01/17) --> Findings again consistent with acute pancreatitis. Moderate amount of sludge in the gallbladder. Intrahepatic and extrahepatic biliary ducts within normal limits. - Cont. IV Levaquin and Flagyl -- KUB (08/03) --> Mild gaseous distention of large bowel - KUB 08/04..read as benign - Repeat LFTs and Lipase are improving - continue to monitor bowel function closely. given dose relistor on 08/03 - continued flasus since 08/05 - GI has signed off - Gen surg recommending f/u outpatient with Dr. Cali in 2 weeks with outpatient cholecystectomy in 6-8 weeks - clear liquids - obtain Speech Therapy swallow evaluation - WBC is elevating. 14.7K (08/09), no fever. Repeat CBC in AM. Possibly d/t pancreatitis - IVFs - requesting that pt have cholecystectomy during current admission. In view of pt's pancreatitis, this seems unlikely. Surgery recommended waiting 4-6 weeks before cholecystectomy. - Will d/w General Surgery (08/10) - start xanax 0.25mg daily - Ativan PRN - Pain control PRN - Zofran PRN - Supportive care - Daily PT - DVT prophylaxis with SCDs hypernatremia IVF to 1/2 NS - recheck labs in AM Constipation - encouraged patient to only use pain medication when needed - dilaudid IV only for breakthrough pain - ultram for pain - KUB now and in AM - miralax daily, MOM now and dulcolax supp now - encourage ambulation (2) Abdominal pain ICD Codes: R10.9 - Unspecified abdominal pain Status: Acute Plan: - See above Yeny Burton Aug 10, 2017 09:45
[2017-08-10] MEDS: ALPRAZolam 0.25 MG TAB PO SCH (09:55)
[2017-08-10] MEDS: ALLOPURINOL 300 MG TAB PO SCH (09:55)
--- NOTE | 2017-08-10 10:02 | HHI.PR ---
Subjective Remarks Patient c/o that he gags whenever he tries to swallow pills or drink liquids continues to have abd pain worse RUQ Objective Vitals Vital Signs Date Time Temp Pulse Resp B/P (MAP) Pulse Ox O2 Delivery O2 Flow Rate FiO2 08/10/17 08:00 96.3 78 17 144/78 (100) 97 08/10/17 06:38 16 08/10/17 00:00 98.2 97 20 131/61 (84) 95 08/09/17 20:00 99.9 99 20 138/70 (92) 95 08/09/17 16:00 99.3 101 16 146/74 (98) 97 08/09/17 12:00 99.7 72 17 153/74 (100) 96 Result Diagram: 08/08/17 0421 08/08/17 042 Other Results Laboratory Tests Test 08/08/17 04:21 08/08/17 11:58 08/09/17 03:03 White Blood Count 14.7 TH/MM3 Red Blood Count 3.68 MIL/MM3 Hemoglobin 10.9 GM/DL Hematocrit 32.3 % Mean Corpuscular Volume 87.9 FL Mean Corpuscular Hemoglobin 29.7 PG Mean Corpuscular Hemoglobin Concent 33.8 % Red Cell Distribution Width 14.8 % Platelet Count 230 TH/MM3 Mean Platelet Volume 8.6 FL Neutrophils (%) (Auto) 85.4 % Lymphocytes (%) (Auto) 7.0 % Monocytes (%) (Auto) 7.3 % Eosinophils (%) (Auto) 0.2 % Basophils (%) (Auto) 0.1 % Neutrophils # (Auto) 12.6 TH/MM3 Lymphocytes # (Auto) 1.0 TH/MM3 Monocytes # (Auto) 1.1 TH/MM3 Eosinophils # (Auto) 0.0 TH/MM3 Basophils # (Auto) 0.0 TH/MM3 CBC Comment DIFF FINAL Differential Comment Blood Urea Nitrogen 24 MG/DL Creatinine 1.33 MG/DL Random Glucose 89 MG/DL Total Protein 5.5 GM/DL Albumin 2.2 GM/DL Calcium Level 7.4 MG/DL Alkaline Phosphatase 175 U/L Aspartate Amino Transf (AST/SGOT) 25 U/L Alanine Aminotransferase (ALT/SGPT) 42 U/L Total Bilirubin 0.8 MG/DL Sodium Level 142 MEQ/L Potassium Level 4.0 MEQ/L Chloride Level 111 MEQ/L Carbon Dioxide Level 20.1 MEQ/L Anion Gap 11 MEQ/L Estimat Glomerular Filtration Rate 52 ML/MIN Protein Corrected Calcium 8.3 MG/DL Urine Color YELLOW YELLOW Urine Turbidity CLEAR CLEAR Urine pH 5.5 5.5 Urine Specific [place] 1.024 1.032 Urine Protein 30 mg/dL 30 mg/dL Urine Glucose (UA) NEG mg/dL NEG mg/dL Urine Ketones 40 mg/dL 40 mg/dL Urine Occult Blood SMALL TRACE Urine Nitrite NEG NEG Urine Bilirubin NEG NEG Urine Urobilinogen LESS THAN 2.0 MG/DL LESS THAN 2.0 MG/DL Urine Leukocyte Esterase TRACE NEG Urine RBC 2 /hpf 1 /hpf Urine WBC 1 /hpf 2 /hpf Urine Squamous Epithelial Cells <1 /hpf <1 /hpf Urine Mucus FEW /lpf FEW /lpf Microscopic Urinalysis Comment CULT NOT INDICATED CULT NOT INDICATED Imaging Last Impressions Chest X-Ray 08/08/17 0000 Signed Impressions: Service Date/Time: Tuesday, August 08, 2017 10:28 - CONCLUSION: No acute disease. Bailey Gan MD Abdomen/Pelvis CT 08/08/17 0000 Signed Impressions: Service Date/Time: Tuesday, August 08, 2017 14:09 - CONCLUSION: 1. The examination demonstrates findings consistent with acute pancreatitis. There is fairly extensive inflammatory stranding around the pancreas with fluid tracking down to the right paracolic gutter. Comparison is made to the previous CT scan dated 08/01/17. The overall amount of inflammatory change around the pancreas and the fluid around the pancreas has significantly increased. No organized, drainable fluid collection is identified. 2. The patient is post right nephrectomy. 3. There are small bilateral effusions. Mumtaz Flor MD Abdomen X-Ray 08/07/17 0600 Signed Impressions: Service Date/Time: Monday, August 07, 2017 09:08 - CONCLUSION: 1. Benign-appearing KUB. Mumtaz Flor MD Cholangiopancreatography MRI 08/01/17 0000 Signed Impressions: Service Date/Time: Tuesday, August 01, 2017 11:42 - CONCLUSION: 1. Findings again consistent with acute pancreatitis. 2. Moderate amount of sludge in the gallbladder. 3. Intrahepatic and extrahepatic biliary ducts within normal limits. Oniel Alonzo MD Objective Remarks GENERAL: This is a well-nourished, well-developed patient CARDIOVASCULAR: Regular rate and rhythm RESPIRATORY: Clear to auscultation. Breath sounds equal bilaterally. GASTROINTESTINAL: Abdomen soft, generalized tenderness which worse RUQ, nondistended. +BS x 4 MUSCULOSKELETAL: Extremities without clubbing, cyanosis, or edema. NEURO: Awake and Alert. Moves all ext x4 A/P Problem List: (1) Acute gallstone pancreatitis ICD Codes: K85.10 - Biliary acute pancreatitis without necrosis or infection Status: Acute Plan: gallstone pancreatitis - Pt is a 76 y/o male with hyperlipidemia, BPH, hypothyroidism and chronic renal insufficiency who presented to the ED with complaints of N/V and upper abdominal pain that radiated to his back. - Pt had been planned for outpt cholecystectomy next week with Dr. Cali - Labs at admission revealed Lipase 56,593, Tbili 2.2, AST 1094, ALT 581 - CT Abd/pelvis (08/01/17) --> Acute pancreatitis and duodenitis. There is edema and scattered small collections of fluid without anything organized, thick walled or drainable. Suspected cholelithiasis although a stone is not discretely visible on today's CT. No ductal dilatation is demonstrated. 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 Sigmoid colon diverticulosis. No diverticulitis. No bowel obstruction. - MRCP (08/01/17) --> Findings again consistent with acute pancreatitis. Moderate amount of sludge in the gallbladder. Intrahepatic and extrahepatic biliary ducts within normal limits. - Cont. IV Levaquin and Flagyl -- KUB (08/03) --> Mild gaseous distention of large bowel - KUB 08/04..read as benign - Repeat LFTs and Lipase are improving - continue to monitor bowel function closely. given dose relistor on 08/03 - continued flatus since 08/05 - GI has signed off - Gen surg recommending f/u outpatient with Dr. Cali in 2 weeks with outpatient cholecystectomy in 6-8 weeks - clear liquids - obtain Speech Therapy swallow evaluation - WBC is elevating. 14.7K (08/09), no fever. Repeat CBC pending. Possibly d/t pancreatitis - IVFs - requesting that pt have cholecystectomy during current admission. In view of pt's pancreatitis, this seems unlikely. Surgery recommended waiting 4-6 weeks before cholecystectomy. - d/w General Surgery - start xanax 0.25mg daily - Ativan PRN - Pain control PRN - Zofran PRN - Supportive care - Daily PT - DVT prophylaxis with SCDs hypernatremia IVF to 1/2 NS - recheck labs in AM Constipation - encouraged patient to only use pain medication when needed - dilaudid IV only for breakthrough pain - ultram for pain - KUB now and in AM - miralax daily, MOM now and dulcolax supp now - encourage ambulation T max in the past 24 hours 99.9 Currently on Levaquin and Flagyl CBC for today pending add IS monitor DVT prophylaxis SCDs (2) Abdominal pain ICD Codes: R10.9 - Unspecified abdominal pain Status: Acute Plan: - See above Assessment and Plan Patient examined. Assessment and plan formulated with Yeny Burton PA-C. I agree with the above. gallstone pancreatitis. rising alk phos and wbc....recheck...?sludge in cbd again. acute pancreatitis trying to resolve. might need repeat mrcp and gi reevaluation. gen surg to discuss timing of lap julian with . schedule some antiemetics and prn anxiolytics as pt says he is unable to advance diet due to anxiety and nausea. ivf. Yeny Burton Aug 10, 2017 10:02 Foreign Dillon MD Aug 10, 2017 13:59
[2017-08-10 11:25] LABS: AUTOMATED NEUTROPHIL # 13.8 TH/MM3 (1.8-7.7); BASOPHIL % 0.1 % (0.0-2.0); EOSINOPHIL % 0.1 % (0.0-4.0); HEMATOCRIT 31.5 % (39.0-51.0); HEMOGLOBIN 10.6 GM/DL (13.0-17.0); LYMPH % 5.6 % (9.0-44.0); LYMPHOCYTE # 0.9 TH/MM3 (1.0-4.8); MEAN CELL VOLUME 87.1 FL (80.0-100.0); MEAN CORPUSCULAR HEMOGLOBIN 29.3 PG (27.0-34.0); MEAN CORPUSCULAR HGB CONC 33.7 % (32.0-36.0); MEAN PLATELET VOLUME 8.2 FL (7.0-11.0); MONO % 5.2 % (0.0-8.0); MONOCYTE # 0.8 TH/MM3 (0-0.9); PLATELET COUNT 316 TH/MM3 (150-450); RED BLOOD COUNT 3.62 MIL/MM3 (4.50-5.90); RED CELL DISTRIBUTION WIDTH 15.2 % (11.6-17.2); WHITE BLOOD COUNT 15.6 TH/MM3 (4.0-11.0)
[2017-08-10 12:00] VITALS: BP 152/76; PULSE 84; RESP 17; TEMP 96.6; O2SAT 96
[2017-08-10 12:26] LABS: ALBUMIN 1.9 GM/DL (3.4-5.0); ALKALINE PHOSPHATASE 738 U/L (45-117); ALT (GPT) 48 U/L (12-78); AST (GOT) 108 U/L (15-37); BICARBONATE 19.6 MEQ/L (21.0-32.0); BLOOD UREA NITROGEN 20 MG/DL (7-18); CALCIUM 7.6 MG/DL (8.5-10.1); CHLORIDE 108 MEQ/L (98-107); CREATININE 1.47 MG/DL (0.60-1.30); GLOMERULAR FILTRATION RATE 46 ML/MIN (>89); GLUCOSE,RANDOM 85 MG/DL (74-106); MAGNESIUM 2.1 MG/DL (1.5-2.5); SODIUM (NA) 140 MEQ/L (136-145); TOTAL BILIRUBIN ADULT 6.4 MG/DL (0.2-1.0); TOTAL PROTEIN 5.2 GM/DL (6.4-8.2)
[2017-08-10 15:00] VITALS: BP 142/80; PULSE 79; RESP 18; TEMP 96.4; O2SAT 96
[2017-08-10] MEDS: PROMETHAZINE HCL 25 MG TAB PO SCH (16:18)
[2017-08-10 20:00] VITALS: BP 149/79; PULSE 88; RESP 17; TEMP 99; O2SAT 97
[2017-08-10] MEDS: TERAZOSIN HCL 5 MG CAP PO SCH (20:21)
[2017-08-10] MEDS: LORazepam 2 MG/ML VIAL IV PUSH PRN (20:46)
[2017-08-11] VITALS: BP 128/74; PULSE 76; RESP 17; TEMP 98.2; O2SAT 98
[2017-08-11] MEDS: LISINOPRIL 10 MG TAB PO SCH (01:37)
[2017-08-11] MEDS: metroNIDAZOLE 500 MG INJ 100 ML IV SCH ×4 (04:06→22:58)
[2017-08-11] MEDS: ACETAMINOPHEN/HYDROcodone 325 MG/5 MG TAB PO PRN ×4 (04:39→18:31)
[2017-08-11] MEDS: LEVOTHYROXINE SODIUM 50 MCG TAB PO SCH (06:01)
[2017-08-11 06:31] LABS: ALBUMIN 1.9 GM/DL (3.4-5.0); DIRECT BILIRUBIN ADULT 2.3 MG/DL (0.0-0.2)
[2017-08-11 06:36] LABS: INDIRECT BILIRUBIN 0.9 MG/DL (0.0-0.8); TOTAL BILIRUBIN ADULT 3.2 MG/DL (0.2-1.0); TOTAL PROTEIN 5.5 GM/DL (6.4-8.2)
[2017-08-11 08:00] VITALS: BP 158/81; PULSE 73; RESP 20; TEMP 98.4; O2SAT 97
[2017-08-11] MEDS: POLYETHYLENE GLYCOL 17 GM PKG PO SCH (09:00)
[2017-08-11] MEDS: ALLOPURINOL 300 MG TAB PO SCH (09:10)
[2017-08-11] MEDS: ALPRAZolam 0.25 MG TAB PO SCH (09:10)
[2017-08-11] MEDS: PROMETHAZINE HCL 25 MG TAB PO SCH ×3 (09:11→17:07)
[2017-08-11] MEDS: LEVOFLOXACIN 750 MG PREMIX INJ 150 ML IV SCH (09:13)
--- NOTE | 2017-08-11 11:09 | HHI.PR ---
Subjective Remarks Patient reports he feels, "okay right now." able to swallow marvin sylvia without gaging able pain improved with pain medication Objective Vitals Vital Signs Date Time Temp Pulse Resp B/P (MAP) Pulse Ox O2 Delivery O2 Flow Rate FiO2 08/11/17 08:00 98.4 73 20 158/81 (106) 97 08/11/17 00:00 98.2 76 17 128/74 (92) 98 08/10/17 20:00 99.0 88 17 149/79 (102) 97 08/10/17 15:00 96.4 79 18 142/80 (100) 96 08/10/17 12:00 96.6 84 17 152/76 (101) 96 08/11/17 08/11/17 08/12/17 15:00 23:00 07:00 Intake Total 120 ml Output Total 150 ml Balance -30 ml Intake Oral 120 ml Stool Total 150 ml # Bowel Movements 1 Result Diagram: 08/10/17 1049 08/10/17 1049 Other Results Laboratory Tests Test 08/08/17 11:58 08/09/17 03:03 08/10/17 10:49 08/11/17 04:28 Urine Color YELLOW YELLOW Urine Turbidity CLEAR CLEAR Urine pH 5.5 5.5 Urine Specific [place] 1.024 1.032 Urine Protein 30 mg/dL 30 mg/dL Urine Glucose (UA) NEG mg/dL NEG mg/dL Urine Ketones 40 mg/dL 40 mg/dL Urine Occult Blood SMALL TRACE Urine Nitrite NEG NEG Urine Bilirubin NEG NEG Urine Urobilinogen LESS THAN 2.0 MG/DL LESS THAN 2.0 MG/DL Urine Leukocyte Esterase TRACE NEG Urine RBC 2 /hpf 1 /hpf Urine WBC 1 /hpf 2 /hpf Urine Squamous Epithelial Cells <1 /hpf <1 /hpf Urine Mucus FEW /lpf FEW /lpf Microscopic Urinalysis Comment CULT NOT INDICATED CULT NOT INDICATED White Blood Count 15.6 TH/MM3 Red Blood Count 3.62 MIL/MM3 Hemoglobin 10.6 GM/DL Hematocrit 31.5 % Mean Corpuscular Volume 87.1 FL Mean Corpuscular Hemoglobin 29.3 PG Mean Corpuscular Hemoglobin Concent 33.7 % Red Cell Distribution Width 15.2 % Platelet Count 316 TH/MM3 Mean Platelet Volume 8.2 FL Neutrophils (%) (Auto) 89.0 % Lymphocytes (%) (Auto) 5.6 % Monocytes (%) (Auto) 5.2 % Eosinophils (%) (Auto) 0.1 % Basophils (%) (Auto) 0.1 % Neutrophils # (Auto) 13.8 TH/MM3 Lymphocytes # (Auto) 0.9 TH/MM3 Monocytes # (Auto) 0.8 TH/MM3 Eosinophils # (Auto) 0.0 TH/MM3 Basophils # (Auto) 0.0 TH/MM3 CBC Comment DIFF FINAL Differential Comment Blood Urea Nitrogen 20 MG/DL Creatinine 1.47 MG/DL Random Glucose 85 MG/DL Total Protein 5.2 GM/DL 5.5 GM/DL Albumin 1.9 GM/DL 1.9 GM/DL Calcium Level 7.6 MG/DL Magnesium Level 2.1 MG/DL Alkaline Phosphatase 738 U/L 671 U/L Aspartate Amino Transf (AST/SGOT) 108 U/L 67 U/L Alanine Aminotransferase (ALT/SGPT) 48 U/L 38 U/L Total Bilirubin 6.4 MG/DL 3.2 MG/DL Sodium Level 140 MEQ/L Potassium Level 4.0 MEQ/L Chloride Level 108 MEQ/L Carbon Dioxide Level 19.6 MEQ/L Anion Gap 12 MEQ/L Estimat Glomerular Filtration Rate 46 ML/MIN Direct Bilirubin 2.3 MG/DL Indirect Bilirubin 0.9 MG/DL Imaging Last Impressions Chest X-Ray 08/08/17 0000 Signed Impressions: Service Date/Time: Tuesday, August 08, 2017 10:28 - CONCLUSION: No acute disease. Bailey Gan MD Abdomen/Pelvis CT 08/08/17 0000 Signed Impressions: Service Date/Time: Tuesday, August 08, 2017 14:09 - CONCLUSION: 1. The examination demonstrates findings consistent with acute pancreatitis. There is fairly extensive inflammatory stranding around the pancreas with fluid tracking down to the right paracolic gutter. Comparison is made to the previous CT scan dated 08/01/17. The overall amount of inflammatory change around the pancreas and the fluid around the pancreas has significantly increased. No organized, drainable fluid collection is identified. 2. The patient is post right nephrectomy. 3. There are small bilateral effusions. Mumtaz Flor MD Abdomen X-Ray 08/07/17 0600 Signed Impressions: Service Date/Time: Monday, August 07, 2017 09:08 - CONCLUSION: 1. Benign-appearing KUB. Mumtaz Flor MD Cholangiopancreatography MRI 08/01/17 0000 Signed Impressions: Service Date/Time: Tuesday, August 01, 2017 11:42 - CONCLUSION: 1. Findings again consistent with acute pancreatitis. 2. Moderate amount of sludge in the gallbladder. 3. Intrahepatic and extrahepatic biliary ducts within normal limits. Oniel Alonzo MD Objective Remarks GENERAL: This is a well-nourished, well-developed patient CARDIOVASCULAR: Regular rate and rhythm RESPIRATORY: Clear to auscultation. Breath sounds equal bilaterally. GASTROINTESTINAL: Abdomen soft, generalized tenderness which worse RUQ, nondistended. +BS x 4 MUSCULOSKELETAL: Extremities without clubbing, cyanosis, or edema. NEURO: Awake and Alert. Moves all ext x4 A/P Problem List: (1) Acute gallstone pancreatitis ICD Codes: K85.10 - Biliary acute pancreatitis without necrosis or infection Status: Acute Plan: gallstone pancreatitis - Pt is a 76 y/o male with hyperlipidemia, BPH, hypothyroidism and chronic renal insufficiency who presented to the ED with complaints of N/V and upper abdominal pain that radiated to his back. - Pt had been planned for outpt cholecystectomy next week with Dr. Cali - Labs at admission revealed Lipase 56,593, Tbili 2.2, AST 1094, ALT 581 - CT Abd/pelvis (08/01/17) --> Acute pancreatitis and duodenitis. There is edema and scattered small collections of fluid without anything organized, thick walled or drainable. Suspected cholelithiasis although a stone is not discretely visible on today's CT. No ductal dilatation is demonstrated. 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 Sigmoid colon diverticulosis. No diverticulitis. No bowel obstruction. - MRCP (08/01/17) --> Findings again consistent with acute pancreatitis. Moderate amount of sludge in the gallbladder. Intrahepatic and extrahepatic biliary ducts within normal limits. - Cont. IV Levaquin and Flagyl -- KUB (08/03) --> Mild gaseous distention of large bowel - KUB 08/04..read as benign - Repeat LFTs (08/11) show mild improvement, recheck in AM - continue to monitor bowel function closely. given dose Relistor on 08/03 - continued flatus since 08/05 - GI has signed off - (08/09 and 08/10) patient reported gag when trying to take in liquids. Speech evaluated no further recommendations. No difficulty with swallowing during speech eval. - (08/11) advance to Full liquids - Gen surg recommending f/u outpatient with Dr. Cali in 2 weeks with outpatient cholecystectomy in 6-8 weeks - WBC is elevating. 14.7K (08/09) -> 15.6 (08/10) no fever. Repeat CBC pending. Possibly d/t pancreatitis. continue Levaquin and Flagy - IVFs - requesting that pt have cholecystectomy during current admission. In view of pt's pancreatitis, this seems unlikely. Surgery recommended waiting 4-6 weeks before cholecystectomy. - d/w General Surgery - continue xanax 0.25mg daily - Ativan PRN - Pain control PRN - Zofran PRN - Supportive care - Daily PT - DVT prophylaxis with SCDs hypernatremia- improved IVF to 1/2 NS Constipation- resolved - encouraged patient to only use pain medication when needed - dilaudid IV only for breakthrough pain - ultram for pain - KUB now and in AM - bowel regiment - encourage ambulation T max in the past 24 hours 99.9 Currently on Levaquin and Flagyl add IS monitor DVT prophylaxis SCDs (2) Abdominal pain ICD Codes: R10.9 - Unspecified abdominal pain Status: Acute Plan: - See above Assessment and Plan Patient examined. Assessment and plan formulated with Yeny Burton PA-C. I agree with the above. gallstone pancreatitis lft elevated again and now trending down...?passing sludge delayed lap julian trying to advance diet but pt "reports gagging seconds after taking liquids" continue efforts to advance diet. long talk with pt/. orders written. Yeny Burton Aug 11, 2017 11:09 Foreign Dillon MD Aug 11, 2017 11:42
[2017-08-11 12:00] VITALS: BP 152/78; PULSE 81; RESP 20; TEMP 98.6; O2SAT 97
--- NOTE | 2017-08-11 12:36 | HHI.PR ---
Subjective Subjective Notes Mr. Alegria is not progressing quickly. I was asked to discuss surgical timing with him as he and his were requesting surgery soon. On review of his recent stay, he has had increased WBC for a few days, and yesterday bilirubin went from normal to 6. Today it has decreased to 3 with other LFTs having similar trend. CT a/p was repeated on 08/08/17 with persistent pancreatitis but no fluid collections or developing cysts. He c/o pain primarily in the right abdomen and inability to eat without having increased pain. He has been having bowel movts according to I/Os. Objective Vitals/I&O Vital Signs Date Time Temp Pulse Resp B/P (MAP) Pulse Ox O2 Delivery O2 Flow Rate FiO2 08/11/17 08:00 98.4 73 20 158/81 (106) 97 Labs Laboratory Tests Test 08/11/17 04:28 Total Bilirubin 3.2 Direct Bilirubin 2.3 Indirect Bilirubin 0.9 Aspartate Amino Transf (AST/SGOT) 67 Alanine Aminotransferase (ALT/SGPT) 38 Alkaline Phosphatase 671 Total Protein 5.5 Albumin 1.9 Radiology Last Impressions Abdomen/Pelvis CT 08/01/17 0021 Signed Impressions: Service Date/Time: Tuesday, August 01, 2017 01:15 - CONCLUSION: 1. Acute pancreatitis and duodenitis. There is edema and scattered small collections of fluid without anything organized, thickwalled or drainable. 2. Suspected cholelithiasis although a stone is not discretely visible on today's CT. No ductal dilatation is demonstrated. 3. 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 4. Sigmoid colon diverticulosis. No diverticulitis. No bowel obstruction. Mino Espinoza MD Cholangiopancreatography MRI 08/01/17 0000 Signed Impressions: Service Date/Time: Tuesday, August 01, 2017 11:42 - CONCLUSION: 1. Findings again consistent with acute pancreatitis. 2. Moderate amount of sludge in the gallbladder. 3. Intrahepatic and extrahepatic biliary ducts within normal limits. Oniel Alonzo MD Narrative Exam Abd: distended, moderate diffuse ttp, tender in RUQ ? mild jaundice A/P Assessment and Plan 76 yo M gallstone pancreatitis, persistent. He likely passed another stone yesterday but LFTs are again improving. I will check u/s of gallbladder to see if he has active inflammation and check lipase. I spoke with Dr. Huertas and asked her opinion for consideration of ERCP with sphincterotomy in case of further stones in common duct. Generally I would avoid cholecystectomy until he is fully improved from this episode of severe pancreatitis, but another option is to proceed with lap julian. However, he also has a higher risk of needing open operation due to previous nephrectomy. Will f/u tomorrow with further recs. Viraj,Mcik ADEN Aug 11, 2017 12:36
[2017-08-11] MEDS: 1/2 NS + KCL 20 MEQ INJ 1,000 ML IV SCH (12:42)
[2017-08-11] MEDS: SIMETHICONE 125 MG CHEWABLE TAB PO SCH ×3 (13:16→22:57)
--- NOTE | 2017-08-11 14:21 | HHI.GIFU ---
Subjective Remarks Pt resting in bed, c/o upper quadrant pain, nausea. GI consulted for rise in LFTs. He says his pain has really never improved. he has nausea and dry heaves after every meal. (Julia Hull) Objective Vitals I&O Vital Signs Date Time Temp Pulse Resp B/P (MAP) Pulse Ox O2 Delivery O2 Flow Rate FiO2 08/11/17 12:00 98.6 81 20 152/78 (102) 97 08/11/17 08:00 98.4 73 20 158/81 (106) 97 08/11/17 00:00 98.2 76 17 128/74 (92) 98 08/10/17 20:00 99.0 88 17 149/79 (102) 97 08/10/17 15:00 96.4 79 18 142/80 (100) 96 I/O 08/10/17 08/10/17 08/10/17 08/11/17 08/11/17 08/11/17 07:00 15:00 23:00 07:00 15:00 23:00 Intake Total 240 ml 1000 ml 240 ml 600 ml Output Total 700 ml 150 ml Balance -460 ml 1000 ml 240 ml 450 ml Intake Oral 240 ml 240 ml 600 ml IV Total 1000 ml Output Urine Total 700 ml Stool Total 150 ml # Voids 3 # Bowel Movements 0 1 1 Laboratory Laboratory Tests Test 08/11/17 04:28 Total Bilirubin 3.2 Direct Bilirubin 2.3 Indirect Bilirubin 0.9 Aspartate Amino Transf (AST/SGOT) 67 Alanine Aminotransferase (ALT/SGPT) 38 Alkaline Phosphatase 671 Total Protein 5.5 Albumin 1.9 Imaging Last Impressions Chest X-Ray 08/08/17 0000 Signed Impressions: Service Date/Time: Tuesday, August 08, 2017 10:28 - CONCLUSION: No acute disease. Bailey Gan MD Abdomen/Pelvis CT 08/08/17 0000 Signed Impressions: Service Date/Time: Tuesday, August 08, 2017 14:09 - CONCLUSION: 1. The examination demonstrates findings consistent with acute pancreatitis. There is fairly extensive inflammatory stranding around the pancreas with fluid tracking down to the right paracolic gutter. Comparison is made to the previous CT scan dated 08/01/17. The overall amount of inflammatory change around the pancreas and the fluid around the pancreas has significantly increased. No organized, drainable fluid collection is identified. 2. The patient is post right nephrectomy. 3. There are small bilateral effusions. Mumtaz Flor MD Abdomen X-Ray 08/07/17 0600 Signed Impressions: Service Date/Time: Monday, August 07, 2017 09:08 - CONCLUSION: 1. Benign-appearing KUB. Mumtaz Flor MD Cholangiopancreatography MRI 08/01/17 0000 Signed Impressions: Service Date/Time: Tuesday, August 01, 2017 11:42 - CONCLUSION: 1. Findings again consistent with acute pancreatitis. 2. Moderate amount of sludge in the gallbladder. 3. Intrahepatic and extrahepatic biliary ducts within normal limits. Oniel Alonzo MD Physical Exam HEENT: Normocephalic; atraumatic CHEST: Even/unlabored CARDIAC: RRR ABDOMEN: Distended, soft, upper quadrant TTP, bowel sounds active SKIN: Normal; no rash; + mild jaundice BI DATA MODELER: No focal deficits; alert and oriented times three. (Julia Hull [facility]) Assessment and Plan Plan - Acute gallstones pancreatitis- Possible choledocholithiasis, MRCP ordered, pt is NPO Pt with hx of biliary colic,gallstones scheduled next week for an elective cholecystectomy presents to [place] for severe abdominal pains which he rates at a 10 out of 10, nausea and vomiting. The pain starts in the back and wrap across the entire abd, very painful upon palpation started around 4 pm, then followed by N/V around 6 pm. work up revealed elevated LFTs, lipase, and mild leukocytosis. CT w/out contrast showed acute pancreatitis and duodenitis, suspected cholelithiasis, right nephrectomy and sigmoid diverticulosis. GS already on the case. No previous history of pancreatitis, no alcohol intake. - Elevated LFTs- obstructive pattern, possible choledocholithiasis, MRCP ordered AST 1094, [id number], ALP 187, bili 2.2, lipase [id number], repeat labs pending - Leukocytolysis- secondary to above, afebrile on Levofloxacin and Flagyl - Biliary colic- was scheduled next week for an elective cholecystectomy (08/03) --> Pt complaining of abdominal distention and generalized abdominal pain today. Reports nausea, has a wet rag on his forehead which he says helps some. Denies emesis. No BM. (+) Flatus. Received Relistor about an hour ago. KUB (08/03) --> Mild gaseous distention of large bowel. Pt reports history of constipation at home, takes Metamucil daily. LFTs and lipase trending down. MRCP noted --> Acute pancreatitis, moderated amount of sludge in the gallbladder. Intrahepatic and extrahepatic biliary ducts WNL. (08/04) --> Pt still passing flatus. Has not had BM. Repeat KUB -> Benign appearing bowel gas pattern. LFTs still trending down. Pt planned for cholecystectomy with Dr. Cali next week. 08/11/17 GI reconsulted b/c pt had significant sudden rise in LFTs 08/10. tbil went from 0.8 -> 6.4 -> and today down to 3.2. he may have passed stone. d/w GS, possible need for ERCP and sphincterotomy. a US is pending Plan: - poss ERCP vs EUS vs repeating CT or MRCP, Dr Huertas will evaluate - diet per attending - await US - further recs to follow Pt has been seen and examined by myself and Dr. Huertas and myself and this note is on her behalf (Julia Hull) Physician Comments seen, examined agree with above awaiting us gb we will order repeat mrcp today-based on results we will schedule ercp plus minus eus (Patricia Huertas MD) Julia Hull Aug 11, 2017 14:21 Patricia Huertas MD Aug 11, 2017 16:13
[2017-08-11 16:00] VITALS: BP 156/80; PULSE 68; RESP 20; TEMP 98.8; O2SAT 97
[2017-08-11] MEDS: LORazepam 2 MG/ML VIAL IV PUSH PRN (17:06)
--- NOTE | 2017-08-11 17:41 | RADRPT ---
EXAM DATE/TIME: 08/11/2017 16:04 [facility] COMPARISON: US ABDOMEN - GALLBLADDER, June 30, 2017, 13:04. INDICATIONS : Gallstones. MEDICAL HISTORY : Hypercholesterolemia. Hypertension. Right kidney cancer. Skin cancer. Arthritis. SURGICAL HISTORY : Appendectomy. Right nephrectomy. ENCOUNTER: [facility] ACUITY: 1 month PAIN SCORE: 5/10 LOCATION: Right upper quadrant MEASUREMENTS: LIVER: 17.7 cm length COMMON DUCT: 10 mm RIGHT KIDNEY: N/A cm FINDINGS: LIVER: Normal echotexture without focal lesion or ductal dilatation. The portal system is patent. There is a small amount of ascites around the liver. COMMON DUCT: No intraluminal mass or stone visualized. GALLBLADDER: Possible tiny stones in gallbladder. There is thickening of the gallbladder wall at 5 mm. PANCREAS: The visualized portions are within normal limits. RIGHT KIDNEY: Surgically removed. CONCLUSION: 1. There appear to be a few small stones in the gallbladder. There is thickening of the gallbladder w all 5 mm. This suggests chronic gallbladder disease. 2. There is dilatation of the common bile duct a 10 mm. This suggest possible biliary tract obstructi on. Recommend MRCP if clinically indicated. 3. There is some free fluid around the liver. Cristian Renee MD on August 11, 2017 at 17:37 Board Certified Radiologist. This report was verified electronically.
[2017-08-11 20:00] VITALS: BP 151/77; PULSE 76; RESP 18; TEMP 99.8; O2SAT 96
--- NOTE | 2017-08-11 20:55 | RADRPT ---
EXAM DATE/TIME: 08/11/2017 17:28 [facility] COMPARISON: No previous studies available for comparison. INDICATIONS : Pancreatitis. Elevated LFT's. MEDICAL HISTORY : Hypertension. Renal insufficiency, chronic. Hypothyroidism. SURGICAL HISTORY : Appendectomy. Nephrectomy, right. ENCOUNTER: Subsequent ACUITY: 2 months PAIN SCORE: 5/10 LOCATION: abdomen. TECHNIQUE: Multiplanar, multisequence magnetic resonance imaging of the abdomen was performed. High-resolution 3D dataset was utilized to reconstruct maximum-intensity projection (MIP) images. FINDINGS: There is extensive edematous pancreatitis acute pancreatitis. The generalized anasarca has increased since previous exam from August 01. Intra-and extrahepatic bile ducts remain normal caliber. Pancreati c duct is normal caliber. There is a small amount of free fluid present. There is some sludge again n oted within the gallbladder. CONCLUSION: 1. Acute pancreatitis without ductal dilatation. Sludge in the gallbladder. Increasing generalized an asarca since prior exam from August 01. Abelardo Hawley MD on August 11, 2017 at 20:48 Board Certified Radiologist. This report was verified electronically.
[2017-08-11] MEDS: TERAZOSIN HCL 5 MG CAP PO SCH (22:57)
[2017-08-11] MEDS: PROMETHAZINE HCL 25 MG TAB PO PRN (22:57)
[2017-08-11] MEDS: SODIUM CHLORIDE 0.9% FLUSH 10 ML FLUSH IV FLUSH PRN (23:00)
[2017-08-12] VITALS: BP 154/81; PULSE 78; RESP 18; TEMP 97.1; O2SAT 97
[2017-08-12] MEDS: LISINOPRIL 10 MG TAB PO SCH (02:05)
[2017-08-12] MEDS: LEVOTHYROXINE SODIUM 50 MCG TAB PO SCH (06:25)
[2017-08-12] MEDS: metroNIDAZOLE 500 MG INJ 100 ML IV SCH ×4 (06:25→22:00)
[2017-08-12 08:00] VITALS: BP 146/86; PULSE 89; RESP 17; TEMP 97.3; O2SAT 97
[2017-08-12] MEDS: PROMETHAZINE HCL 25 MG TAB PO SCH ×3 (08:00→17:03)
[2017-08-12] MEDS: ALLOPURINOL 300 MG TAB PO SCH (09:00)
[2017-08-12] MEDS: POLYETHYLENE GLYCOL 17 GM PKG PO SCH (09:00)
[2017-08-12] MEDS: SIMETHICONE 125 MG CHEWABLE TAB PO SCH ×4 (09:30→21:59)
[2017-08-12] MEDS: LEVOFLOXACIN 750 MG PREMIX INJ 150 ML IV SCH (09:37)
[2017-08-12] MEDS: ALPRAZolam 0.25 MG TAB PO SCH (09:37)
[2017-08-12] MEDS: 1/2 NS + KCL 20 MEQ INJ 1,000 ML IV SCH ×2 (09:38→13:37)
--- NOTE | 2017-08-12 11:58 | HHI.PR ---
Subjective Remarks no events overnight. Objective Vitals heart reg lung cta abd s/mild tenderness. ext no edema Vital Signs Date Time Temp Pulse Resp B/P (MAP) Pulse Ox O2 Delivery O2 Flow Rate FiO2 08/12/17 08:00 97.3 89 17 146/86 (106) 97 08/12/17 00:00 97.1 78 18 154/81 (105) 97 08/11/17 20:00 99.8 76 18 151/77 (101) 96 08/11/17 20:00 18 08/11/17 16:00 98.8 68 20 156/80 (105) 97 08/11/17 12:00 98.6 81 20 152/78 (102) 97 Result Diagram: 08/10/17 1049 08/10/17 1049 Imaging Last Impressions Chest X-Ray 08/08/17 0000 Signed Impressions: Service Date/Time: Tuesday, August 08, 2017 10:28 - CONCLUSION: No acute disease. Bailey Gan MD Abdomen/Pelvis CT 08/08/17 0000 Signed Impressions: Service Date/Time: Tuesday, August 08, 2017 14:09 - CONCLUSION: 1. The examination demonstrates findings consistent with acute pancreatitis. There is fairly extensive inflammatory stranding around the pancreas with fluid tracking down to the right paracolic gutter. Comparison is made to the previous CT scan dated 08/01/17. The overall amount of inflammatory change around the pancreas and the fluid around the pancreas has significantly increased. No organized, drainable fluid collection is identified. 2. The patient is post right nephrectomy. 3. There are small bilateral effusions. Mumtaz Flor MD Abdomen X-Ray 08/07/17 0600 Signed Impressions: Service Date/Time: Monday, August 07, 2017 09:08 - CONCLUSION: 1. Benign-appearing KUB. Mumtaz Flor MD Cholangiopancreatography MRI 08/01/17 0000 Signed Impressions: Service Date/Time: Tuesday, August 01, 2017 11:42 - CONCLUSION: 1. Findings again consistent with acute pancreatitis. 2. Moderate amount of sludge in the gallbladder. 3. Intrahepatic and extrahepatic biliary ducts within normal limits. Oniel Alonzo MD A/P Problem List: (1) Acute gallstone pancreatitis ICD Codes: K85.10 - Biliary acute pancreatitis without necrosis or infection Status: Acute Plan: gallstone pancreatitis - Pt is a 76 y/o male with hyperlipidemia, BPH, hypothyroidism and chronic renal insufficiency who presented to the ED with complaints of N/V and upper abdominal pain that radiated to his back. - Pt had been planned for outpt cholecystectomy next week with Dr. Cali - Labs at admission revealed Lipase 56,593, Tbili 2.2, AST 1094, ALT 581 - CT Abd/pelvis (08/01/17) --> Acute pancreatitis and duodenitis. There is edema and scattered small collections of fluid without anything organized, thick walled or drainable. Suspected cholelithiasis although a stone is not discretely visible on today's CT. No ductal dilatation is demonstrated. 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 Sigmoid colon diverticulosis. No diverticulitis. No bowel obstruction. - MRCP (08/01/17) --> Findings again consistent with acute pancreatitis. Moderate amount of sludge in the gallbladder. Intrahepatic and extrahepatic biliary ducts within normal limits. - Cont. IV Levaquin and Flagyl -- KUB (08/03) --> Mild gaseous distention of large bowel - KUB 08/04..read as benign - continue to monitor bowel function closely. given dose Relistor on 08/03 - (08/09 and 08/10) patient reported gag when trying to take in liquids. Speech evaluated no further recommendations. No difficulty with swallowing during speech eval. - (08/11) advanced to Full liquids - requesting that pt have cholecystectomy during current admission. -In view of pt's pancreatitis, this seems unlikely. Surgery recommended waiting 4-6 weeks before cholecystectomy. - Patient seems to be still passing sludge with fluctuating lft. - went for ercp today for sphincterotomy - cont supportive care -advance diet as kylee -pain and anxiolytics. -antiemetics. Constipation- resolved - encouraged patient to only use pain medication when needed - dilaudid IV only for breakthrough pain - ultram for pain - bowel regimen - encourage ambulation (2) Abdominal pain ICD Codes: R10.9 - Unspecified abdominal pain Status: Acute Plan: - See above Foreign iDllon MD Aug 12, 2017 11:58
[2017-08-12] MEDS ORDERED: LIDOCAINE HCL 1% PF 5 ML SYRINGE OTHER ONE (12:00)
[2017-08-12] MEDS ORDERED: PHENYLEPH/NS 1000 MCG/10 ML SYR IV ONE (12:00)
[2017-08-12] MEDS ORDERED: ONDANSETRON HCL 4 MG/2 ML VIAL IV ONE (12:00)
[2017-08-12] MEDS ORDERED: DEXAMETHASONE SOD PHOS 4 MG/ML VIAL IV ONE (12:00)
[2017-08-12] MEDS ORDERED: ESMOLOL HCL 100 MG/10 ML VIAL IV ONE (12:00)
[2017-08-12] MEDS ORDERED: PROPOFOL 200 MG/20 ML AMP IV ONE (12:00)
[2017-08-12] MEDS ORDERED: SUCCINYLCHOLINE CHLORIDE 200 MG/10 ML VIAL IV ONE (12:00)
[2017-08-12] MEDS ORDERED: CHLORHEXIDINE GLUCONATE 2 % 1 PACK (2 CLOTHS) TOPICAL PRN (12:15)
[2017-08-12] MEDS ORDERED: LACTATED RINGER'S 1000 ML IV PRN (12:15)
[2017-08-12] MEDS ORDERED: SODIUM CHLORID 0.9% 500 ML IV PRN (12:15)
[2017-08-12] MEDS ORDERED: METOPROLOL TARTRATE 25 MG TAB PO PRN (12:15)
[2017-08-12] MEDS ORDERED: POVIDONE IODINE 5% (ANTISEPSIS KIT) 4 APPLICATIONS EACH NARE PRN (12:15)
[2017-08-12] MEDS ORDERED: IOHEXOL 300 MG/ML 100 ML BTL (for Rad CT) OTHER ONE (13:47)
[2017-08-12] MEDS ORDERED: DO NOT ADM ANY ANTICOAGULANT DRUGS PRN (14:38)
--- NOTE | 2017-08-12 15:30 | PD.PROCEDR ---
GI Procedure PROCEDURE PERFORMED ERCP with sphincterotomy and stone extraction by balloon INDICATION FOR PROCEDURE Elevated liver function test, abdominal pain PROCEDURE: The procedure, risks and benefits were discussed with Mr. Alegria and informed consent was obtained. Anesthesia sedated him with Diprivan. He was placed in the left lateral decubitus position. ERCP: Patient was placed in a prone position. The Pentax videoscope was introduced through the oropharynx and advanced to the second portion of the duodenum where the ampula was identified. Cannulation was performed without any difficulty, cholangiogram was performed which showed small filling defect in the distal common bile duct,'s sphincterotomy was performed with a sphincterotome, sweeping the duct with the balloon size 11.5 mm retrieve small stone, multiple sweep of the duct was negative with end of case included cholangiogram was negative for any filling defect, the scope withdrawal back without any immediate complication ESTIMATED BLOOD LOSS: None SPECIMENS REMOVED: None COMPLICATIONS: None IMPRESSION: EGD, limited exam normal Ampulla normal Common bile duct with filling defect status post removal of a stone by balloon Pancreatic duct was not examined PLAN: Nothing by mouth until the morning Liver function tests in the morning Laparoscopic cholecystectomy per surgery Racheal Lamb MD Aug 12, 2017 15:30
--- NOTE | 2017-08-12 15:32 | HHI.GIFU ---
Subjective Remarks Patient laying in bed comfortably, no complaint at this time, has mild improvement of his liver function test today Objective Vitals I&O Vital Signs Date Time Temp Pulse Resp B/P (MAP) Pulse Ox O2 Delivery O2 Flow Rate FiO2 08/12/17 08:00 97.3 89 17 146/86 (106) 97 08/12/17 00:00 97.1 78 18 154/81 (105) 97 08/11/17 20:00 99.8 76 18 151/77 (101) 96 08/11/17 20:00 18 08/11/17 16:00 98.8 68 20 156/80 (105) 97 I/O 08/11/17 08/11/17 08/11/17 08/12/17 08/12/17 08/12/17 07:00 15:00 23:00 07:00 15:00 23:00 Intake Total 240 ml 1850 ml 940 ml 240 ml 900 ml Output Total 150 ml Balance 240 ml 1700 ml 940 ml 240 ml 900 ml Intake Oral 240 ml 600 ml 240 ml 240 ml IV Total 1250 ml 700 ml Other 900 ml Stool Total 150 ml # Voids 3 4 # Bowel Movements 1 1 1 Physical Exam HEENT: Normocephalic; atraumatic CHEST: Even/unlabored CARDIAC: RRR ABDOMEN: Distended, soft, nontender, bowel sounds active SKIN: Normal; no rash; + mild jaundice ELECTRONIC WARFARE LINGUIST: No focal deficits; alert and oriented times three. Assessment and Plan Plan - Acute gallstones pancreatitis- Possible choledocholithiasis, MRCP ordered, pt is NPO Pt with hx of biliary colic,gallstones scheduled next week for an elective cholecystectomy [place] [facility] severe abdominal pains which he rates at a 10 out of 10, nausea and vomiting. The pain starts in the back and wrap across the entire abd, very painful upon palpation started around 4 pm, then followed by N/V around 6 pm. work up revealed elevated LFTs, lipase, and mild leukocytosis. CT w/out contrast showed acute pancreatitis and duodenitis, suspected cholelithiasis, right nephrectomy and sigmoid diverticulosis. GS already on the case. No previous history of pancreatitis, no alcohol intake. - Elevated LFTs- obstructive pattern, possible choledocholithiasis, MRCP ordered AST 1094, [id number], ALP 187, bili 2.2, lipase 73615, repeat labs pending - Leukocytolysis- secondary to above, afebrile on Levofloxacin and Flagyl - Biliary colic- was scheduled next week for an elective cholecystectomy (08/03) --> Pt complaining of abdominal distention and generalized abdominal pain today. Reports nausea, has a wet rag on his forehead which he says helps some. Denies emesis. No BM. (+) Flatus. Received Relistor about an hour ago. KUB (08/03) --> Mild gaseous distention of large bowel. Pt reports history of constipation at home, takes Metamucil daily. LFTs and lipase trending down. MRCP noted --> Acute pancreatitis, moderated amount of sludge in the gallbladder. Intrahepatic and extrahepatic biliary ducts WNL. (08/04) --> Pt still passing flatus. Has not had BM. Repeat KUB -> Benign appearing bowel gas pattern. LFTs still trending down. Pt planned for cholecystectomy with Dr. Cali next week. 08/11/17 GI reconsulted b/c pt had significant sudden rise in LFTs 08/10. tbil went from 0.8 -> 6.4 -> and today down to 3.2. he may have passed stone. d/w GS, possible need for ERCP and sphincterotomy. a US is pending 08/12/2017 patient had elevated liver function test, slightly normal today but still elevated, surgery would like us to proceed with ERCP before doing the laparoscopic cholecystectomy to ensure that the common bile duct is clear, patient without any new complaint, ERCP was done today IMPRESSION: EGD, limited exam normal Ampulla normal Common bile duct with filling defect status post removal of a stone by balloon Pancreatic duct was not examined PLAN: Nothing by mouth until the morning Liver function tests in the morning Laparoscopic cholecystectomy per surgery Racheal Lamb MD Aug 12, 2017 15:32
--- NOTE | 2017-08-12 15:33 | RADRPT ---
EXAM DATE/TIME: 08/12/2017 13:22 [facility] COMPARISON: No previous studies available for comparison. INDICATIONS : Stone removal. FLUORO TIME: 1 minutes IMAGE COUNT: 2 CONTRAST: Instilled by Ordering Physician MEDICAL HISTORY : Gallstone. Pancreatitis SURGICAL HISTORY : Umbilical hernia repair. Nephrectomy, right. Appendectomy ENCOUNTER: Initial ACUITY: 1 day PAIN SCORE: Non-responsive. LOCATION: Right Abdomen FINDINGS: An ERCP was performed by the ordering physician. The images demonstrate contrast in the common bile duct and central hepatic ducts with guidewire in p lace. There is a small apparent filling defect near the ampulla which appears resolved on the second image. CONCLUSION: ERCP as above. Krishna Genao MD on August 12, 2017 at 15:30 Board Certified Radiologist. This report was verified electronically.
[2017-08-12 16:00] VITALS: BP 131/74; PULSE 98; RESP 17; TEMP 96.2; O2SAT 96
[2017-08-12] MEDS: ACETAMINOPHEN/HYDROcodone 325 MG/5 MG TAB PO PRN ×2 (17:03→21:59)
[2017-08-12 20:00] VITALS: BP 140/76; PULSE 77; RESP 20; TEMP 96.2; O2SAT 97
--- NOTE | 2017-08-12 20:02 | EKG ---
Date Performed: 08/12/2017 Time Performed: 10:18:58 PTAGE: 76 years EKG: Sinus rhythm NORMAL ECG PREVIOUS TRACING : 08/09/2015 13.18 Since the previous tracing, no significant change noted DOCTOR: Grant Duarte Interpretating Date/Time 08/12/2017 20:01:40
[2017-08-12] MEDS: TERAZOSIN HCL 5 MG CAP PO SCH (22:00)
[2017-08-13] VITALS: BP 135/79; PULSE 79; RESP 20; TEMP 97.5; O2SAT 97
[2017-08-13] MEDS: LISINOPRIL 10 MG TAB PO SCH (00:29)
[2017-08-13] MEDS: metroNIDAZOLE 500 MG INJ 100 ML IV SCH ×4 (04:04→20:57)
[2017-08-13] MEDS: 1/2 NS + KCL 20 MEQ INJ 1,000 ML IV SCH ×2 (04:10→17:54)
[2017-08-13] MEDS: LEVOTHYROXINE SODIUM 50 MCG TAB PO SCH (06:23)
[2017-08-13 08:00] VITALS: BP 129/81; PULSE 82; RESP 20; TEMP 97.7; O2SAT 97
[2017-08-13 08:34] LABS: AUTOMATED NEUTROPHIL # 11.6 TH/MM3 (1.8-7.7); BASOPHIL % 0.1 % (0.0-2.0); HEMATOCRIT 27.8 % (39.0-51.0); HEMOGLOBIN 9.4 GM/DL (13.0-17.0); LYMPH % 5.1 % (9.0-44.0); LYMPHOCYTE # 0.7 TH/MM3 (1.0-4.8); MEAN CELL VOLUME 87.2 FL (80.0-100.0); MEAN CORPUSCULAR HEMOGLOBIN 29.5 PG (27.0-34.0); MEAN CORPUSCULAR HGB CONC 33.9 % (32.0-36.0); MEAN PLATELET VOLUME 8.1 FL (7.0-11.0); MONOCYTE # 0.4 TH/MM3 (0-0.9); NEUT % 91.8 % (16.0-70.0); PLATELET COUNT 402 TH/MM3 (150-450); RED BLOOD COUNT 3.19 MIL/MM3 (4.50-5.90); RED CELL DISTRIBUTION WIDTH 15.5 % (11.6-17.2); WHITE BLOOD COUNT 12.7 TH/MM3 (4.0-11.0)
[2017-08-13 08:59] LABS: ALBUMIN 1.7 GM/DL (3.4-5.0); AST (GOT) 50 U/L (15-37); BICARBONATE 19.9 MEQ/L (21.0-32.0); BLOOD UREA NITROGEN 23 MG/DL (7-18); CALCIUM 7.5 MG/DL (8.5-10.1); CHLORIDE 106 MEQ/L (98-107); CREATININE 1.22 MG/DL (0.60-1.30); DIRECT BILIRUBIN ADULT 1.4 MG/DL (0.0-0.2); GLOMERULAR FILTRATION RATE 57 ML/MIN (>89); GLUCOSE,RANDOM 129 MG/DL (74-106); SODIUM (NA) 138 MEQ/L (136-145)
[2017-08-13 09:00] LABS: ALT (GPT) 29 U/L (12-78)
[2017-08-13] MEDS: POLYETHYLENE GLYCOL 17 GM PKG PO SCH (09:00)
[2017-08-13 09:02] LABS: ALKALINE PHOSPHATASE 515 U/L (45-117); TOTAL BILIRUBIN ADULT 2.1 MG/DL (0.2-1.0)
[2017-08-13] MEDS: LEVOFLOXACIN 750 MG PREMIX INJ 150 ML IV SCH (09:24)
[2017-08-13] MEDS: PROMETHAZINE HCL 25 MG TAB PO SCH ×3 (09:27→17:54)
[2017-08-13] MEDS: ALLOPURINOL 300 MG TAB PO SCH (09:27)
[2017-08-13] MEDS: ALPRAZolam 0.25 MG TAB PO SCH (09:27)
[2017-08-13] MEDS: SIMETHICONE 125 MG CHEWABLE TAB PO SCH ×4 (09:27→20:57)
[2017-08-13] MEDS: ACETAMINOPHEN/HYDROcodone 325 MG/5 MG TAB PO PRN ×2 (09:32→16:49)
--- NOTE | 2017-08-13 11:11 | HHI.PR ---
Subjective Remarks Pt underwent ERCP with sphincterotomy and balloon sweep on 08/12/[address] Lamb Pt reports that his abdominal pain is slightly improved today Mild nausea but no vomiting Pt has been afebrile Objective Vitals Vital Signs Date Time Temp Pulse Resp B/P (MAP) Pulse Ox O2 Delivery O2 Flow Rate FiO2 08/13/17 00:00 97.5 79 20 135/79 (97) 97 08/12/17 23:13 18 08/12/17 20:00 96.2 77 20 140/76 (97) 97 08/12/17 16:00 96.2 98 17 131/74 (93) 96 08/12/17 15:15 98.1 96 14 152/76 (101) 98 Nasal Cannula 2 08/12/17 15:00 84 14 128/71 (90) 99 Nasal Cannula 2 08/12/17 14:45 90 14 142/76 (98) 98 Nasal Cannula 2 08/12/17 14:41 98.1 97 14 145/73 (97) 98 Nasal Cannula 2 Result Diagram: 08/13/1762008/13/17620 Other Results Laboratory Tests Test 08/11/17 14:12 08/13/17 06:21 Lipase 164 U/L White Blood Count 12.7 TH/MM3 Red Blood Count 3.19 MIL/MM3 Hemoglobin 9.4 GM/DL Hematocrit 27.8 % Mean Corpuscular Volume 87.2 FL Mean Corpuscular Hemoglobin 29.5 PG Mean Corpuscular Hemoglobin Concent 33.9 % Red Cell Distribution Width 15.5 % Platelet Count 402 TH/MM3 Mean Platelet Volume 8.1 FL Neutrophils (%) (Auto) 91.8 % Lymphocytes (%) (Auto) 5.1 % Monocytes (%) (Auto) 3.0 % Eosinophils (%) (Auto) 0.0 % Basophils (%) (Auto) 0.1 % Neutrophils # (Auto) 11.6 TH/MM3 Lymphocytes # (Auto) 0.7 TH/MM3 Monocytes # (Auto) 0.4 TH/MM3 Eosinophils # (Auto) 0.0 TH/MM3 Basophils # (Auto) 0.0 TH/MM3 CBC Comment DIFF FINAL Differential Comment Blood Urea Nitrogen 23 MG/DL Creatinine 1.22 MG/DL Random Glucose 129 MG/DL Total Protein 5.0 GM/DL Albumin 1.7 GM/DL Calcium Level 7.5 MG/DL Alkaline Phosphatase 515 U/L Aspartate Amino Transf (AST/SGOT) 50 U/L Alanine Aminotransferase (ALT/SGPT) 29 U/L Total Bilirubin 2.1 MG/DL Direct Bilirubin 1.4 MG/DL Sodium Level 138 MEQ/L Potassium Level 4.4 MEQ/L Chloride Level 106 MEQ/L Carbon Dioxide Level 19.9 MEQ/L Anion Gap 12 MEQ/L Estimat Glomerular Filtration Rate 57 ML/MIN Imaging Last Impressions GI Procedure 08/12/17 0000 Signed Impressions: Service Date/Time: Saturday, August 12, 2017 13:22 - CONCLUSION: ERCP as above. Krishna Genao MD Gall Bladder Ultrasound 08/11/17 0000 Signed Impressions: Service Date/Time: Friday, August 11, 2017 16:04 - CONCLUSION: 1. There appear to be a few small stones in the gallbladder. There is thickening of the gallbladder wall 5 mm. This suggests chronic gallbladder disease. 2. There is dilatation of the common bile duct a 10 mm. This suggest possible biliary tract obstruction. Recommend MRCP if clinically indicated. 3. There is some free fluid around the liver. Cristian Renee MD Cholangiopancreatography MRI 08/11/17 0000 Signed Impressions: Service Date/Time: Friday, August 11, 2017 17:28 - CONCLUSION: 1. Acute pancreatitis without ductal dilatation. Sludge in the gallbladder. Increasing generalized anasarca since prior exam from August 01. Abelardo Hawley MD Chest X-Ray 08/08/17 0000 Signed Impressions: Service Date/Time: Tuesday, August 08, 2017 10:28 - CONCLUSION: No acute disease. Bailey Gan MD Abdomen/Pelvis CT 08/08/17 0000 Signed Impressions: Service Date/Time: Tuesday, August 08, 2017 14:09 - CONCLUSION: 1. The examination demonstrates findings consistent with acute pancreatitis. There is fairly extensive inflammatory stranding around the pancreas with fluid tracking down to the right paracolic gutter. Comparison is made to the previous CT scan dated 08/01/17. The overall amount of inflammatory change around the pancreas and the fluid around the pancreas has significantly increased. No organized, drainable fluid collection is identified. 2. The patient is post right nephrectomy. 3. There are small bilateral effusions. Mumtaz Flor MD Abdomen X-Ray 08/07/17 0600 Signed Impressions: Service Date/Time: Monday, August 07, 2017 09:08 - CONCLUSION: 1. Benign-appearing KUB. Mumtaz Flor MD Objective Remarks General: NAD, AAOx3 Chest: CTA Cardiac: Regular Abd: +BS, soft mildly distended, upper abdominal mild tenderness to palpation Ext: No edema A/P Problem List: (1) Acute gallstone pancreatitis ICD Codes: K85.10 - Biliary acute pancreatitis without necrosis or infection Status: Acute Plan: Gallstone pancreatitis - Pt is a 76 y/o male with hyperlipidemia, BPH, hypothyroidism and chronic renal insufficiency who presented to the ED with complaints of N/V and upper abdominal pain that radiated to his back. - Pt had been planned for outpt cholecystectomy next week with Dr. Cali - Labs at admission revealed Lipase 56,593, Tbili 2.2, AST 1094, ALT 581 - CT Abd/pelvis (08/01/17) --> Acute pancreatitis and duodenitis. There is edema and scattered small collections of fluid without anything organized, thick walled or drainable. Suspected cholelithiasis although a stone is not discretely visible on today's CT. No ductal dilatation is demonstrated. 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 Sigmoid colon diverticulosis. No diverticulitis. No bowel obstruction. - MRCP (08/01/17) --> Findings again consistent with acute pancreatitis. Moderate amount of sludge in the gallbladder. Intrahepatic and extrahepatic biliary ducts within normal limits. - Cont. IV Levaquin and Flagyl - KUB (08/03) --> Mild gaseous distention of large bowel - KUB (08/04) --> read as benign - continue to monitor bowel function closely. given dose Relistor on 08/03 - (08/09 and 08/10) patient reported gag when trying to take in liquids. Speech evaluated no further recommendations. No difficulty with swallowing during speech eval. - (08/11) advanced to Full liquids - requesting that pt have cholecystectomy during current admission. - In view of pt's pancreatitis, this seems unlikely. Surgery recommended waiting 4-6 weeks before cholecystectomy. - On 08/11 pts LFTs elevated again and it was felt that the pt was still passing sludge/stones - Pt underwent ERCP with sphincterotomy and balloon sweep on 08/12 --> cholangiogram was performed which showed small filling defect in the distal common bile ducts, sphincterotomy was performed with a sphincterotome, sweeping the duct with the balloon size 11.5 mm retrieve small stone, multiple sweep of the duct was negative with end of case included cholangiogram was negative for any filling defect - LFTs are improving today - Cont supportive care - Advance diet as tolerated per GI - Pain control and anxiolytics PRN - Antiemetics PRN Constipation- resolved - encouraged patient to only use pain medication when needed - Dilaudid IV only for breakthrough pain - Ultram for pain - bowel regimen - encourage ambulation (2) Abdominal pain ICD Codes: R10.9 - Unspecified abdominal pain Status: Acute Plan: - See above Assessment and Plan Patient examined. Assessment and plan formulated with Ewa Gomez PA-C. I agree with the above. gs pancreatitis. ercp yesterday noted advance diet per GI pain control dvt prophylaxis Ewa Gomez Aug 13, 2017 11:11 Foreign Dillon MD Aug 13, 2017 12:47
[2017-08-13 12:00] VITALS: BP 122/70; PULSE 82; RESP 18; TEMP 96.8; O2SAT 97
--- NOTE | 2017-08-13 13:41 | HHI.GIFU ---
Subjective Remarks Pt resting in bed. c/o cough. denies vomiting. less abd pain today. (Julia Hull) Objective Vitals I&O Vital Signs Date Time Temp Pulse Resp B/P (MAP) Pulse Ox O2 Delivery O2 Flow Rate FiO2 08/13/17 12:00 96.8 82 18 122/70 (87) 97 08/13/17 08:00 97.7 82 20 129/81 (97) 97 08/13/17 00:00 97.5 79 20 135/79 (97) 97 08/12/17 23:13 18 08/12/17 20:00 96.2 77 20 140/76 (97) 97 08/12/17 16:00 96.2 98 17 131/74 (93) 96 08/12/17 15:15 98.1 96 14 152/76 (101) 98 Nasal Cannula 2 08/12/17 15:00 84 14 128/71 (90) 99 Nasal Cannula 2 08/12/17 14:45 90 14 142/76 (98) 98 Nasal Cannula 2 08/12/17 14:41 98.1 97 14 145/73 (97) 98 Nasal Cannula 2 I/O 08/12/17 08/12/17 08/12/17 08/13/17 08/13/17 08/13/17 07:00 15:00 23:00 07:00 15:00 23:00 Intake Total 240 ml 900 ml 0 ml 0 ml Output Total 100 ml Balance 240 ml 900 ml 0 ml 0 ml -100 ml Intake Oral 240 ml 0 ml 0 ml Other 900 ml Output Urine Total 100 ml # Voids 4 4 3 # Bowel Movements 1 2 1 Laboratory Laboratory Tests Test 08/13/17 06:21 White Blood Count 12.7 Red Blood Count 3.19 Hemoglobin 9.4 Hematocrit 27.8 Mean Corpuscular Volume 87.2 Mean Corpuscular Hemoglobin 29.5 Mean Corpuscular Hemoglobin Concent 33.9 Red Cell Distribution Width 15.5 Platelet Count 402 Mean Platelet Volume 8.1 Neutrophils (%) (Auto) 91.8 Lymphocytes (%) (Auto) 5.1 Monocytes (%) (Auto) 3.0 Eosinophils (%) (Auto) 0.0 Basophils (%) (Auto) 0.1 Neutrophils # (Auto) 11.6 Lymphocytes # (Auto) 0.7 Monocytes # (Auto) 0.4 Eosinophils # (Auto) 0.0 Basophils # (Auto) 0.0 CBC Comment DIFF FINAL Differential Comment Blood Urea Nitrogen 23 Creatinine 1.22 Random Glucose 129 Total Protein 5.0 Albumin 1.7 Calcium Level 7.5 Alkaline Phosphatase 515 Aspartate Amino Transf (AST/SGOT) 50 Alanine Aminotransferase (ALT/SGPT) 29 Total Bilirubin 2.1 Direct Bilirubin 1.4 Sodium Level 138 Potassium Level 4.4 Chloride Level 106 Carbon Dioxide Level 19.9 Anion Gap 12 Estimat Glomerular Filtration Rate 57 Imaging Last Impressions GI Procedure 08/12/17 0000 Signed Impressions: Service Date/Time: Saturday, August 12, 2017 13:22 - CONCLUSION: ERCP as above. Krishna Genao MD Gall Bladder Ultrasound 08/11/17 0000 Signed Impressions: Service Date/Time: Friday, August 11, 2017 16:04 - CONCLUSION: 1. There appear to be a few small stones in the gallbladder. There is thickening of the gallbladder wall 5 mm. This suggests chronic gallbladder disease. 2. There is dilatation of the common bile duct a 10 mm. This suggest possible biliary tract obstruction. Recommend MRCP if clinically indicated. 3. There is some free fluid around the liver. Cristian Renee MD Cholangiopancreatography MRI 08/11/17 0000 Signed Impressions: Service Date/Time: Friday, August 11, 2017 17:28 - CONCLUSION: 1. Acute pancreatitis without ductal dilatation. Sludge in the gallbladder. Increasing generalized anasarca since prior exam from August 01. Abelardo Hawley MD Chest X-Ray 08/08/17 0000 Signed Impressions: Service Date/Time: Tuesday, August 08, 2017 10:28 - CONCLUSION: No acute disease. Bailey Gan MD Abdomen/Pelvis CT 08/08/17 0000 Signed Impressions: Service Date/Time: Tuesday, August 08, 2017 14:09 - CONCLUSION: 1. The examination demonstrates findings consistent with acute pancreatitis. There is fairly extensive inflammatory stranding around the pancreas with fluid tracking down to the right paracolic gutter. Comparison is made to the previous CT scan dated 08/01/17. The overall amount of inflammatory change around the pancreas and the fluid around the pancreas has significantly increased. No organized, drainable fluid collection is identified. 2. The patient is post right nephrectomy. 3. There are small bilateral effusions. Mumtaz Flor MD Abdomen X-Ray 08/07/17 0600 Signed Impressions: Service Date/Time: Monday, August 07, 2017 09:08 - CONCLUSION: 1. Benign-appearing KUB. Mumtaz Flor MD Physical Exam HEENT: Normocephalic; atraumatic CHEST: Even/unlabored CARDIAC: RRR ABDOMEN: nondistended, soft, nontender, bowel sounds active SKIN: Normal; no rash; + mild jaundice [employer]: No focal deficits; alert and oriented times three. (Julia Hull CLINICAL TRAINER) Assessment and Plan Plan - Acute gallstones pancreatitis- Possible choledocholithiasis, MRCP ordered, pt is NPO Pt with hx of biliary colic,gallstones scheduled next week for an elective cholecystectomy presents to [facility] [place] for severe abdominal pains which he rates at a 10 out of 10, nausea and vomiting. The pain starts in the back and wrap across the entire abd, very painful upon palpation started around 4 pm, then followed by N/V around 6 pm. work up revealed elevated LFTs, lipase, and mild leukocytosis. CT w/out contrast showed acute pancreatitis and duodenitis, suspected cholelithiasis, right nephrectomy and sigmoid diverticulosis. GS already on the case. No previous history of pancreatitis, no alcohol intake. - Elevated LFTs- obstructive pattern, possible choledocholithiasis, MRCP ordered AST 1094, LWN218, ALP 187, bili 2.2, lipase 23262, repeat labs pending - Leukocytolysis- secondary to above, afebrile on Levofloxacin and Flagyl - Biliary colic- was scheduled next week for an elective cholecystectomy (08/03) --> Pt complaining of abdominal distention and generalized abdominal pain today. Reports nausea, has a wet rag on his forehead which he says helps some. Denies emesis. No BM. (+) Flatus. Received Relistor about an hour ago. KUB (08/03) --> Mild gaseous distention of large bowel. Pt reports history of constipation at home, takes Metamucil daily. LFTs and lipase trending down. MRCP noted --> Acute pancreatitis, moderated amount of sludge in the gallbladder. Intrahepatic and extrahepatic biliary ducts WNL. (08/04) --> Pt still passing flatus. Has not had BM. Repeat KUB -> Benign appearing bowel gas pattern. LFTs still trending down. Pt planned for cholecystectomy with Dr. Cali next week. 08/11/17 GI reconsulted b/c pt had significant sudden rise in LFTs 08/10. tbil went from 0.8 -> 6.4 -> and today down to 3.2. he may have passed stone. d/w GS, possible need for ERCP and sphincterotomy. a US is pending 08/12/2017 patient had elevated liver function test, slightly normal today but still elevated, surgery would like us to proceed with ERCP before doing the laparoscopic cholecystectomy to ensure that the common bile duct is clear, patient without any new complaint, ERCP was done today IMPRESSION: EGD, limited exam normal Ampulla normal Common bile duct with filling defect status post removal of a stone by balloon Pancreatic duct was not examined 08/13/17 s/p ERCP with sphincterotomy and stone extraction. pain improving. LFTs mild decrease PLAN - clear liquids, advance as tolerated - further mgmt per GS, await lap julian - monitor labs - GI will sign off. please reconsult if needed. (Julia Hull) Physician Comments seen, examined agree with above Chloraseptic lozenges advance diet slowly (Patricia Huertas MD) Julia Hull Aug 13, 2017 13:41 Patricia Huertas MD Aug 13, 2017 16:49
[2017-08-13 16:00] VITALS: BP 122/70; PULSE 66; RESP 18; TEMP 97.6; O2SAT 97
--- NOTE | 2017-08-13 16:24 | HHI.PR ---
Subjective Subjective Notes His is at bedside. He has been coughing today. Pain is about the same. Has not had anything by mouth today. Objective Vitals/I&O Vital Signs Date Time Temp Pulse Resp B/P (MAP) Pulse Ox O2 Delivery O2 Flow Rate FiO2 08/13/17 12:00 96.8 82 18 122/70 (87) 97 08/12/17 15:15 Nasal Cannula 2 Labs Laboratory Tests Test 08/13/17 06:21 White Blood Count 12.7 Red Blood Count 3.19 Hemoglobin 9.4 Hematocrit 27.8 Mean Corpuscular Volume 87.2 Mean Corpuscular Hemoglobin 29.5 Mean Corpuscular Hemoglobin Concent 33.9 Red Cell Distribution Width 15.5 Platelet Count 402 Mean Platelet Volume 8.1 Neutrophils (%) (Auto) 91.8 Lymphocytes (%) (Auto) 5.1 Monocytes (%) (Auto) 3.0 Eosinophils (%) (Auto) 0.0 Basophils (%) (Auto) 0.1 Neutrophils # (Auto) 11.6 Lymphocytes # (Auto) 0.7 Monocytes # (Auto) 0.4 Eosinophils # (Auto) 0.0 Basophils # (Auto) 0.0 CBC Comment DIFF FINAL Differential Comment Blood Urea Nitrogen 23 Creatinine 1.22 Random Glucose 129 Total Protein 5.0 Albumin 1.7 Calcium Level 7.5 Alkaline Phosphatase 515 Aspartate Amino Transf (AST/SGOT) 50 Alanine Aminotransferase (ALT/SGPT) 29 Total Bilirubin 2.1 Direct Bilirubin 1.4 Sodium Level 138 Potassium Level 4.4 Chloride Level 106 Carbon Dioxide Level 19.9 Anion Gap 12 Estimat Glomerular Filtration Rate 57 Radiology Last Impressions Abdomen/Pelvis CT 08/01/17 0021 Signed Impressions: Service Date/Time: Tuesday, August 01, 2017 01:15 - CONCLUSION: 1. Acute pancreatitis and duodenitis. There is edema and scattered small collections of fluid without anything organized, thickwalled or drainable. 2. Suspected cholelithiasis although a stone is not discretely visible on today's CT. No ductal dilatation is demonstrated. 3. 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 4. Sigmoid colon diverticulosis. No diverticulitis. No bowel obstruction. Mino Espinoza MD Cholangiopancreatography MRI 08/01/17 0000 Signed Impressions: Service Date/Time: Tuesday, August 01, 2017 11:42 - CONCLUSION: 1. Findings again consistent with acute pancreatitis. 2. Moderate amount of sludge in the gallbladder. 3. Intrahepatic and extrahepatic biliary ducts within normal limits. Oniel Alonzo MD Narrative Exam Appears tired, ill Abd: distended, moderate diffuse ttp, worse in RLQ A/P Assessment and Plan 76 yo M gallstone pancreatitis. S/p ERCP 08/12/17 with sphincterotomy and stone extraction. He has persistent ileus secondary to severe pancreatitis and is deconditioned. LFTs are improved but remain elevated. Persistent leukocytosis. Laparoscopic cholecystectomy (possible open especially due to h/ o open right nephrectomy) is not appropriate in the setting of moderate or severe pancreatitis with deconditioned elderly patient as it does not treat his problem only prevent future problems. Would benefit from surgery in 4-6 weeks if continues to improve. Sphincterotomy will give some protection against recurrent choledocholithiasis or pancreatitis. Appreciate gastroenterology evaluation and prompt treatment. Mick Cali MD Aug 13, 2017 16:24
[2017-08-13] MEDS: ONDANSETRON HCL 4 MG/2 ML VIAL IV PUSH PRN (16:49)
[2017-08-13] MEDS ORDERED: BENZOCAINE-MENTHOL (SUGAR FREE) 15 MG-3.6 MG LOZENGE BUCCAL PRN (17:00)
[2017-08-13 20:00] VITALS: BP 137/77; PULSE 76; RESP 20; TEMP 96.8; O2SAT 96
[2017-08-13] MEDS: PROMETHAZINE HCL 25 MG TAB PO PRN (20:57)
[2017-08-13] MEDS: TERAZOSIN HCL 5 MG CAP PO SCH (20:57)
[2017-08-14] VITALS: BP 127/81; PULSE 65; RESP 20; TEMP 97.2; O2SAT 97
[2017-08-14] MEDS: ONDANSETRON HCL 4 MG/2 ML VIAL IV PUSH PRN (00:48)
[2017-08-14] MEDS: ACETAMINOPHEN/HYDROcodone 325 MG/5 MG TAB PO PRN ×4 (00:56→18:46)
[2017-08-14] MEDS: LISINOPRIL 10 MG TAB PO SCH (00:57)
[2017-08-14 04:00] VITALS: BP 137/75; PULSE 68; RESP 20; TEMP 98.6; O2SAT 95
[2017-08-14] MEDS: metroNIDAZOLE 500 MG INJ 100 ML IV SCH ×2 (05:54→08:31)
[2017-08-14] MEDS: LEVOTHYROXINE SODIUM 50 MCG TAB PO SCH (05:55)
[2017-08-14] MEDS: 1/2 NS + KCL 20 MEQ INJ 1,000 ML IV SCH ×2 (06:01→16:06)
[2017-08-14 06:17] LABS: AUTOMATED NEUTROPHIL # 9.9 TH/MM3 (1.8-7.7); EOSINOPHIL % 0.2 % (0.0-4.0); LYMPH % 7.8 % (9.0-44.0); LYMPHOCYTE # 0.9 TH/MM3 (1.0-4.8); MEAN CELL VOLUME 86.6 FL (80.0-100.0); MEAN CORPUSCULAR HGB CONC 34.7 % (32.0-36.0); MEAN PLATELET VOLUME 8.1 FL (7.0-11.0); MONO % 6.9 % (0.0-8.0); MONOCYTE # 0.8 TH/MM3 (0-0.9); NEUT % 85.1 % (16.0-70.0); PLATELET COUNT 445 TH/MM3 (150-450); WHITE BLOOD COUNT 11.6 TH/MM3 (4.0-11.0)
[2017-08-14 07:03] LABS: ALBUMIN 1.9 GM/DL (3.4-5.0); BICARBONATE 21.7 MEQ/L (21.0-32.0); CALCIUM 7.1 MG/DL (8.5-10.1); CALCIUM-PROTEIN CORRECTED 8.4 MG/DL (8.5-10.1); CREATININE 1.39 MG/DL (0.60-1.30); TOTAL BILIRUBIN ADULT 1.6 MG/DL (0.2-1.0); TOTAL PROTEIN 4.8 GM/DL (6.4-8.2)
[2017-08-14 08:00] VITALS: BP 118/74; PULSE 99; RESP 20; TEMP 95.8; O2SAT 97
[2017-08-14] MEDS: ALLOPURINOL 300 MG TAB PO SCH (08:29)
[2017-08-14] MEDS: PROMETHAZINE HCL 25 MG TAB PO SCH ×3 (08:29→16:05)
[2017-08-14] MEDS: POLYETHYLENE GLYCOL 17 GM PKG PO SCH (08:30)
[2017-08-14] MEDS: LEVOFLOXACIN 750 MG PREMIX INJ 150 ML IV SCH (08:30)
[2017-08-14] MEDS: ALPRAZolam 0.25 MG TAB PO SCH (08:30)
[2017-08-14] MEDS: SIMETHICONE 125 MG CHEWABLE TAB PO SCH (08:34)
--- NOTE | 2017-08-14 09:01 | HHI.PR ---
Subjective Remarks Pt reports that he had a bad night last night. He tried broth for dinner and reports that about an hour or two after that he had increased abd pain and nausea. He has been coughing and bringing up phlegm as well. He reports that the cough kept him up all night. Pt has been afebrile Objective Vitals Vital Signs Date Time Temp Pulse Resp B/P (MAP) Pulse Ox O2 Delivery O2 Flow Rate FiO2 08/14/17 08:00 95.8 99 20 118/74 (89) 97 08/14/17 04:00 98.6 68 20 137/75 (95) 95 08/14/17 00:00 97.2 65 20 127/81 (96) 97 08/13/17 20:00 96.8 76 20 137/77 (97) 96 08/13/17 16:00 97.6 66 18 122/70 (87) 97 08/13/17 12:00 96.8 82 18 122/70 (87) 97 Result Diagram: 08/14/17 0403 08/14/17 0403 Other Results Laboratory Tests Test 08/13/17 06:21 08/14/17 04:03 White Blood Count 12.7 TH/MM3 11.6 TH/MM3 Red Blood Count 3.19 MIL/MM3 3.00 MIL/MM3 Hemoglobin 9.4 GM/DL 9.0 GM/DL Hematocrit 27.8 % 26.0 % Mean Corpuscular Volume 87.2 FL 86.6 FL Mean Corpuscular Hemoglobin 29.5 PG 30.0 PG Mean Corpuscular Hemoglobin Concent 33.9 % 34.7 % Red Cell Distribution Width 15.5 % 15.0 % Platelet Count 402 TH/MM3 445 TH/MM3 Mean Platelet Volume 8.1 FL 8.1 FL Neutrophils (%) (Auto) 91.8 % 85.1 % Lymphocytes (%) (Auto) 5.1 % 7.8 % Monocytes (%) (Auto) 3.0 % 6.9 % Eosinophils (%) (Auto) 0.0 % 0.2 % Basophils (%) (Auto) 0.1 % 0.0 % Neutrophils # (Auto) 11.6 TH/MM3 9.9 TH/MM3 Lymphocytes # (Auto) 0.7 TH/MM3 0.9 TH/MM3 Monocytes # (Auto) 0.4 TH/MM3 0.8 TH/MM3 Eosinophils # (Auto) 0.0 TH/MM3 0.0 TH/MM3 Basophils # (Auto) 0.0 TH/MM3 0.0 TH/MM3 CBC Comment DIFF FINAL DIFF FINAL Differential Comment Blood Urea Nitrogen 23 MG/DL 26 MG/DL Creatinine 1.22 MG/DL 1.39 MG/DL Random Glucose 129 MG/DL 109 MG/DL Total Protein 5.0 GM/DL 4.8 GM/DL Albumin 1.7 GM/DL 1.9 GM/DL Calcium Level 7.5 MG/DL 7.1 MG/DL Alkaline Phosphatase 515 U/L 533 U/L Aspartate Amino Transf (AST/SGOT) 50 U/L 57 U/L Alanine Aminotransferase (ALT/SGPT) 29 U/L 30 U/L Total Bilirubin 2.1 MG/DL 1.6 MG/DL Direct Bilirubin 1.4 MG/DL Sodium Level 138 MEQ/L 139 MEQ/L Potassium Level 4.4 MEQ/L 3.9 MEQ/L Chloride Level 106 MEQ/L 107 MEQ/L Carbon Dioxide Level 19.9 MEQ/L 21.7 MEQ/L Anion Gap 12 MEQ/L 10 MEQ/L Estimat Glomerular Filtration Rate 57 ML/MIN 49 ML/MIN Protein Corrected Calcium 8.4 MG/DL Lipase 187 U/L Imaging Last Impressions GI Procedure 08/12/17 0000 Signed Impressions: Service Date/Time: Saturday, August 12, 2017 13:22 - CONCLUSION: ERCP as above. Krishna Genao MD Gall Bladder Ultrasound 08/11/17 0000 Signed Impressions: Service Date/Time: Friday, August 11, 2017 16:04 - CONCLUSION: 1. There appear to be a few small stones in the gallbladder. There is thickening of the gallbladder wall 5 mm. This suggests chronic gallbladder disease. 2. There is dilatation of the common bile duct a 10 mm. This suggest possible biliary tract obstruction. Recommend MRCP if clinically indicated. 3. There is some free fluid around the liver. Cristian Renee MD Cholangiopancreatography MRI 08/11/17 0000 Signed Impressions: Service Date/Time: Friday, August 11, 2017 17:28 - CONCLUSION: 1. Acute pancreatitis without ductal dilatation. Sludge in the gallbladder. Increasing generalized anasarca since prior exam from August 01. Abelardo Hawley MD Chest X-Ray 08/08/17 0000 Signed Impressions: Service Date/Time: Tuesday, August 08, 2017 10:28 - CONCLUSION: No acute disease. Bailey Gan MD Abdomen/Pelvis CT 08/08/17 0000 Signed Impressions: Service Date/Time: Tuesday, August 08, 2017 14:09 - CONCLUSION: 1. The examination demonstrates findings consistent with acute pancreatitis. There is fairly extensive inflammatory stranding around the pancreas with fluid tracking down to the right paracolic gutter. Comparison is made to the previous CT scan dated 08/01/17. The overall amount of inflammatory change around the pancreas and the fluid around the pancreas has significantly increased. No organized, drainable fluid collection is identified. 2. The patient is post right nephrectomy. 3. There are small bilateral effusions. Mumtaz Flor MD Abdomen X-Ray 08/07/17 0600 Signed Impressions: Service Date/Time: Monday, August 07, 2017 09:08 - CONCLUSION: 1. Benign-appearing KUB. Mumtaz Flor MD Objective Remarks General: NAD, AAOx3 Chest: Crackle at the right base Cardiac: Regular Abd: +BS, soft mildly distended, upper abdominal mild tenderness to palpation Ext: Mild bilateral pedal edema A/P Problem List: (1) Acute gallstone pancreatitis ICD Codes: K85.10 - Biliary acute pancreatitis without necrosis or infection Status: Acute Plan: Gallstone pancreatitis - Pt is a 76 y/o male with hyperlipidemia, BPH, hypothyroidism and chronic renal insufficiency who presented to the ED with complaints of N/V and upper abdominal pain that radiated to his back. - Pt had been planned for outpt cholecystectomy next week with Dr. Cali - Labs at admission revealed Lipase 56,593, Tbili 2.2, AST 1094, ALT 581 - CT Abd/pelvis (08/01/17) --> Acute pancreatitis and duodenitis. There is edema and scattered small collections of fluid without anything organized, thick walled or drainable. Suspected cholelithiasis although a stone is not discretely visible on today's CT. No ductal dilatation is demonstrated. 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 Sigmoid colon diverticulosis. No diverticulitis. No bowel obstruction. - MRCP (08/01/17) --> Findings again consistent with acute pancreatitis. Moderate amount of sludge in the gallbladder. Intrahepatic and extrahepatic biliary ducts within normal limits. - Cont. IV Levaquin and Flagyl - KUB (08/03) --> Mild gaseous distention of large bowel - KUB (08/04) --> read as benign - continue to monitor bowel function closely. given dose Relistor on 08/03 - (08/09 and 08/10) patient reported gag when trying to take in liquids. Speech evaluated no further recommendations. No difficulty with swallowing during speech eval. - (08/11) advanced to Full liquids - requesting that pt have cholecystectomy during current admission. - In view of pt's pancreatitis, this seems unlikely. Surgery recommended waiting 4-6 weeks before cholecystectomy. - On 08/11 pts LFTs elevated again and it was felt that the pt was still passing sludge/stones - Pt underwent ERCP with sphincterotomy and balloon sweep on 08/12 --> cholangiogram was performed which showed small filling defect in the distal common bile ducts, sphincterotomy was performed with a sphincterotome, sweeping the duct with the balloon size 11.5 mm retrieve small stone, multiple sweep of the duct was negative with end of case included cholangiogram was negative for any filling defect - LFTs are improving today - Cont supportive care - Diet advanced to clear liquids on 08/13 but pt reports increased pain and nausea with po intake. - Pt has had increase cough over the last day, CXR today. - Pain control and anxiolytics PRN - Antiemetics PRN Constipation- resolved - encouraged patient to only use pain medication when needed - Dilaudid IV only for breakthrough pain - Ultram for pain - bowel regimen - encourage ambulation (2) Abdominal pain ICD Codes: R10.9 - Unspecified abdominal pain Status: Acute Plan: - See above Assessment and Plan Patient examined. Assessment and plan formulated with Ewa Gomez PA-C. I agree with the above. acute gs pancreatitis ercp with gs/sludge removal and sphincterotomy. advance diet. plan for ivf d/c. would stop abx. Ewa Gomez Aug 14, 2017 09:01 Foreign Dillon MD Aug 14, 2017 15:12
--- NOTE | 2017-08-14 09:32 | RADRPT ---
EXAM DATE/TIME: 08/14/2017 09:06 [facility] COMPARISON: CHEST SINGLE AP, August 08, 2017, 10:28. INDICATIONS : Short of breath, coughing, upper abdominal pain MEDICAL HISTORY : Pancreatitis. SURGICAL HISTORY : Nephrectomy, right. Appendectomy. Umbilical hernia repair. ENCOUNTER: Subsequent ACUITY: 2 days PAIN SCORE: 0/10 LOCATION: Bilateral chest FINDINGS: No new focal pleural or parenchymal opacities. Cardiomediastinal contours are within normal limits. B santos thorax is intact. CONCLUSION: 1. No acute abnormality or significant interval change. Krishna Genao MD on August 14, 2017 at 9:28 Board Certified Radiologist. This report was verified electronically.
[2017-08-14 12:00] VITALS: BP 125/73; PULSE 68; RESP 16; TEMP 97.9; O2SAT 99
--- NOTE | 2017-08-14 12:55 | HHI.PR ---
Subjective Subjective Notes Sitting up in bed having some clears. States he had a rough night due to pain and especially nausea. Objective Vitals/I&O Vital Signs Date Time Temp Pulse Resp B/P (MAP) Pulse Ox O2 Delivery O2 Flow Rate FiO2 08/14/17 08:00 95.8 99 20 118/74 (89) 97 08/12/17 15:15 Nasal Cannula 2 Labs Laboratory Tests Test 08/14/17 04:03 White Blood Count 11.6 Red Blood Count 3.00 Hemoglobin 9.0 Hematocrit 26.0 Mean Corpuscular Volume 86.6 Mean Corpuscular Hemoglobin 30.0 Mean Corpuscular Hemoglobin Concent 34.7 Red Cell Distribution Width 15.0 Platelet Count 445 Mean Platelet Volume 8.1 Neutrophils (%) (Auto) 85.1 Lymphocytes (%) (Auto) 7.8 Monocytes (%) (Auto) 6.9 Eosinophils (%) (Auto) 0.2 Basophils (%) (Auto) 0.0 Neutrophils # (Auto) 9.9 Lymphocytes # (Auto) 0.9 Monocytes # (Auto) 0.8 Eosinophils # (Auto) 0.0 Basophils # (Auto) 0.0 CBC Comment DIFF FINAL Differential Comment Blood Urea Nitrogen 26 Creatinine 1.39 Random Glucose 109 Total Protein 4.8 Albumin 1.9 Calcium Level 7.1 Alkaline Phosphatase 533 Aspartate Amino Transf (AST/SGOT) 57 Alanine Aminotransferase (ALT/SGPT) 30 Total Bilirubin 1.6 Sodium Level 139 Potassium Level 3.9 Chloride Level 107 Carbon Dioxide Level 21.7 Anion Gap 10 Estimat Glomerular Filtration Rate 49 Protein Corrected Calcium 8.4 Lipase 187 Radiology Last Impressions Abdomen/Pelvis CT 08/01/17 0021 Signed Impressions: Service Date/Time: Tuesday, August 01, 2017 01:15 - CONCLUSION: 1. Acute pancreatitis and duodenitis. There is edema and scattered small collections of fluid without anything organized, thickwalled or drainable. 2. Suspected cholelithiasis although a stone is not discretely visible on today's CT. No ductal dilatation is demonstrated. 3. 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 4. Sigmoid colon diverticulosis. No diverticulitis. No bowel obstruction. Mino Espinoza MD Cholangiopancreatography MRI 08/01/17 0000 Signed Impressions: Service Date/Time: Tuesday, August 01, 2017 11:42 - CONCLUSION: 1. Findings again consistent with acute pancreatitis. 2. Moderate amount of sludge in the gallbladder. 3. Intrahepatic and extrahepatic biliary ducts within normal limits. Oniel Alonzo MD Narrative Exam Abd: distended, moderate diffuse ttp A/P Assessment and Plan 76 yo M gallstone pancreatitis. S/p ERCP 08/12/17 with sphincterotomy and stone extraction. Persistent ileus secondary to previous. Add reglan for ileus. He is still quite distended. Monitor for confusion and stop reglan if this occurs. Mick Cali MD Aug 14, 2017 12:55
[2017-08-14 16:00] VITALS: BP 145/70; PULSE 77; RESP 16; TEMP 97.6; O2SAT 96
[2017-08-14] MEDS: METOCLOPRAMIDE HCL 10 MG/2 ML VIAL IV PUSH SCH ×2 (16:04→21:56)
[2017-08-14 20:00] VITALS: BP 143/88; PULSE 80; RESP 20; TEMP 97.7; O2SAT 96
[2017-08-14] MEDS: TERAZOSIN HCL 5 MG CAP PO SCH (21:55)
[2017-08-15] VITALS: BP 140/77; PULSE 64; RESP 18; TEMP 97.8; O2SAT 94
[2017-08-15] MEDS: LISINOPRIL 10 MG TAB PO SCH (01:48)
[2017-08-15] MEDS: ACETAMINOPHEN/HYDROcodone 325 MG/5 MG TAB PO PRN ×3 (01:50→23:01)
[2017-08-15] MEDS: 1/2 NS + KCL 20 MEQ INJ 1,000 ML IV SCH ×2 (01:53→16:04)
[2017-08-15 04:20] VITALS: O2SAT 100
--- NOTE | 2017-08-15 04:41 | HHI.FPPN ---
Addendum to progress note ADDENDUM Reason for addendum: Additonal documentation Additional information Residents responded to patient's room after hearing overhead page for a [employer]. 76 male with PMH of hyperlipidemia, BPH, hypothyroidism and chronic renal insufficiency was being treated for gallstone pancreatitis. Pt stated that he was feeling better per nurse. She helped him to the bathroom and turned around to leave the room. Immediately, the patient developed a tonic-clonic seizure which she witnessed that lasted for 3.5 minutes. She called out for help and three other nurses helped her lift him to the bed. He did not lose consciousness or fall. There was no incontinence or tongue biting. On questioning, patient states that he feels weak but is not in any pain although his speech appeared garbled. He was easy to understand earlier per nurse. Objective: AFVSS, 02 saturation 99% on nonrebreather which was taken off and patient maintained saturations in the high 90's on RA GEN: Elderly gentleman, not in respiratory distress, responsive but tired, falling asleep intermittently, responds to commands HEENT: NCAT, pupils equal and reactive, can smile but not symmetric although nurse says is normal for him, moves tongue easily from side to side CV: Well perfused, RRR RESP: CTAB, no increased work of breathing, not tachypneic MSK: Able to elevate both arms, not able to elevate LE (1/5 strength) but has had weakness and uses a walker for ambulation NEURO/PSYCH: Alert, not fully oriented, follows commands, speech somewhat garbled, less legible per nurse A/P 76y/o male presented being evaluated after a seizure. Ddx includes acute stroke/ TIA, medication effect, arrhythmia, metabolic disturbance. -CT head without contrast -CBC, CMP, lactate -Chest x-ray -EKG -Ativan 2mg IV prn seizures -Patient's hospitalist would be contacted by the patient's nurse Keyana Nguyen MD Aug 15, 2017 04:41
[2017-08-15] MEDS ORDERED: LORazepam 2 MG/ML VIAL IV PUSH PRN (05:00)
--- NOTE | 2017-08-15 05:05 | RADRPT ---
EXAM DATE/TIME: 08/15/2017 04:52 [facility] COMPARISON: No previous studies available for comparison. INDICATIONS : Altered mental status. Seizure. RADIATION DOSE: 52.13 CTDIvol (mGy) MEDICAL HISTORY : Hypertension. Renal carcinoma SURGICAL HISTORY : Nephrectomy, right. ENCOUNTER: Initial ACUITY: 1 day PAIN SCALE: Non-responsive LOCATION: cranial TECHNIQUE: Multiple contiguous axial images were obtained of the head. Using automated exposure control and adj ustment of the mA and/or kV according to patient size, radiation dose was kept as low as reasonably a chievable to obtain optimal diagnostic quality images. DICOM format image data is available electro nically for review and comparison. FINDINGS: CEREBRUM: The ventricles are normal for age. No evidence of midline shift, mass lesion, hemorrhage or acute in farction. No extra-axial fluid collections are seen. POSTERIOR FOSSA: The cerebellum and brainstem are intact. The 4th ventricle is midline. The cerebellopontine angle i s unremarkable. EXTRACRANIAL: The visualized portion of the orbits is intact. SKULL: The calvaria is intact. No evidence of skull fracture. CONCLUSION: Negative noncontrast CT Carroll Gonsales MD on August 15, 2017 at 5:02 Board Certified Radiologist. This report was verified electronically.
--- NOTE | 2017-08-15 05:09 | RADRPT ---
EXAM DATE/TIME: 08/15/2017 04:46 [facility] COMPARISON: CHEST SINGLE AP, August 14, 2017, 9:06. INDICATIONS : Sudden onset of altered mental status. MEDICAL HISTORY : Pancreatitis. SURGICAL HISTORY : Nephrectomy, right. Appendectomy. Umbilical hernia repair. ENCOUNTER: Subsequent ACUITY: 3 days PAIN SCORE: 0/10 LOCATION: Bilateral chest FINDINGS: A single view of the chest demonstrates the lungs to be symmetrically aerated without evidence of mas s, infiltrate or effusion. The cardiomediastinal contours are unremarkable. Osseous structures are intact. CONCLUSION: No acute disease. Carroll Gonsales MD on August 15, 2017 at 5:07 Board Certified Radiologist. This report was verified electronically.
[2017-08-15 05:41] LABS: AUTOMATED NEUTROPHIL # 9.4 TH/MM3 (1.8-7.7); BASOPHIL % 0.1 % (0.0-2.0); EOSINOPHIL % 0.3 % (0.0-4.0); HEMATOCRIT 29.2 % (39.0-51.0); LYMPH % 10.5 % (9.0-44.0); LYMPHOCYTE # 1.2 TH/MM3 (1.0-4.8); MEAN CELL VOLUME 87.3 FL (80.0-100.0); MEAN CORPUSCULAR HGB CONC 34.4 % (32.0-36.0); MEAN PLATELET VOLUME 7.7 FL (7.0-11.0); MONO % 6.6 % (0.0-8.0); MONOCYTE # 0.8 TH/MM3 (0-0.9); NEUT % 82.5 % (16.0-70.0); PLATELET COUNT 453 TH/MM3 (150-450); RED BLOOD COUNT 3.34 MIL/MM3 (4.50-5.90); RED CELL DISTRIBUTION WIDTH 15.3 % (11.6-17.2); WHITE BLOOD COUNT 11.4 TH/MM3 (4.0-11.0)
[2017-08-15 05:48] LABS: ALBUMIN 2.2 GM/DL (3.4-5.0); AST (GOT) 46 U/L (15-37); BLOOD UREA NITROGEN 20 MG/DL (7-18); CALCIUM 7.7 MG/DL (8.5-10.1); CHLORIDE 104 MEQ/L (98-107); CREATININE 1.52 MG/DL (0.60-1.30); GLOMERULAR FILTRATION RATE 45 ML/MIN (>89); GLUCOSE,RANDOM 121 MG/DL (74-106); SODIUM (NA) 138 MEQ/L (136-145)
[2017-08-15 05:49] LABS: ALT (GPT) 29 U/L (12-78)
[2017-08-15 05:52] LABS: ALKALINE PHOSPHATASE 544 U/L (45-117); TOTAL BILIRUBIN ADULT 1.8 MG/DL (0.2-1.0); TOTAL PROTEIN 5.5 GM/DL (6.4-8.2)
[2017-08-15] MEDS: METOCLOPRAMIDE HCL 10 MG/2 ML VIAL IV PUSH SCH (06:00)
[2017-08-15] MEDS: LEVOTHYROXINE SODIUM 50 MCG TAB PO SCH (06:35)
[2017-08-15 07:20] LABS: BASOPHIL % 0.1 % (0.0-2.0); EOSINOPHIL % 0.2 % (0.0-4.0); HEMATOCRIT 26.5 % (39.0-51.0); HEMOGLOBIN 9.3 GM/DL (13.0-17.0); LYMPH % 5.3 % (9.0-44.0); LYMPHOCYTE # 0.6 TH/MM3 (1.0-4.8); MEAN CELL VOLUME 86.5 FL (80.0-100.0); MEAN CORPUSCULAR HEMOGLOBIN 30.3 PG (27.0-34.0); MEAN PLATELET VOLUME 7.9 FL (7.0-11.0); MONO % 7.8 % (0.0-8.0); MONOCYTE # 0.9 TH/MM3 (0-0.9); NEUT % 86.6 % (16.0-70.0); PLATELET COUNT 430 TH/MM3 (150-450); RED BLOOD COUNT 3.07 MIL/MM3 (4.50-5.90); RED CELL DISTRIBUTION WIDTH 15.1 % (11.6-17.2); WHITE BLOOD COUNT 11.6 TH/MM3 (4.0-11.0)
[2017-08-15 07:43] LABS: ALBUMIN 1.9 GM/DL (3.4-5.0); ALT (GPT) 27 U/L (12-78); AST (GOT) 42 U/L (15-37); BICARBONATE 21.7 MEQ/L (21.0-32.0); BLOOD UREA NITROGEN 19 MG/DL (7-18); CALCIUM 7.5 MG/DL (8.5-10.1); CHLORIDE 105 MEQ/L (98-107); CREATININE 1.35 MG/DL (0.60-1.30); GLOMERULAR FILTRATION RATE 51 ML/MIN (>89); GLUCOSE,RANDOM 116 MG/DL (74-106); SODIUM (NA) 137 MEQ/L (136-145)
[2017-08-15 07:46] LABS: ALKALINE PHOSPHATASE 503 U/L (45-117); TOTAL BILIRUBIN ADULT 1.6 MG/DL (0.2-1.0); TOTAL PROTEIN 5.1 GM/DL (6.4-8.2)
[2017-08-15 08:00] VITALS: BP 138/74; PULSE 77; RESP 18; TEMP 97.7; O2SAT 97
[2017-08-15] MEDS: POLYETHYLENE GLYCOL 17 GM PKG PO SCH (09:00)
[2017-08-15] MEDS: ALLOPURINOL 300 MG TAB PO SCH (09:04)
[2017-08-15] MEDS: PROMETHAZINE HCL 25 MG TAB PO SCH ×3 (09:04→17:00)
[2017-08-15] MEDS: ALPRAZolam 0.25 MG TAB PO SCH (09:04)
--- NOTE | 2017-08-15 10:58 | HHI.PR ---
Subjective Remarks Last night around 4AM the pt had a [facility] called on him According to the [facility] documentation pt was helped to the bathroom and was on the commode when the pt reportedly developed "tonic-clonic" seizure-like activity. The nurse and three other nurses helped her lift him to the bed. He reportedly did not lose consciousness or fall. There was no incontinence of bowel or bladder and no reported tongue biting. The pt does not recall any of these events upon questioning this morning. There were no vital signs documented, only that his VSS and that his O2 saturation was 99% on nonrebreather and then when taken off the mask he maintained his O2 sats on room air. It was documented that the pt was "responsive but tired, falling asleep intermittently, responds to commands" Head CT was negative CXR was negative. Pt reports that prior to this episode he was still coughing quite a bit Pt denies any hx of seizures or seizure-like activity He had been tolerating the clear liquids better yesterday Afebrile Pt is AAOx3 and saturating well on RA Objective Vitals Vital Signs Date Time Temp Pulse Resp B/P (MAP) Pulse Ox O2 Delivery O2 Flow Rate FiO2 08/15/17 08:00 97.7 77 18 138/74 (95) 97 08/15/17 04:20 100 15.00 08/15/17 00:00 97.8 64 18 140/77 (98) 94 08/14/17 20:00 97.7 80 20 143/88 (106) 96 08/14/17 16:00 97.6 77 16 145/70 (95) 96 08/14/17 12:00 97.9 68 16 125/73 (90) 99 08/15/17 08/15/17 08/16/17 15:00 23:00 07:00 Output Total 250 ml Balance -250 ml Output Urine Total 250 ml # Voids 1 Result Diagram: 08/15/17 0620 08/15/17 0622 Other Results Laboratory Tests Test 08/14/17 04:03 08/15/17 05:15 08/15/17 06:20 08/15/17 06:22 White Blood Count 11.6 TH/MM3 11.4 TH/MM3 11.6 TH/MM3 Red Blood Count 3.00 MIL/MM3 3.34 MIL/MM3 3.07 MIL/MM3 Hemoglobin 9.0 GM/DL 10.0 GM/DL 9.3 GM/DL Hematocrit 26.0 % 29.2 % 26.5 % Mean Corpuscular Volume 86.6 FL 87.3 FL 86.5 FL Mean Corpuscular Hemoglobin 30.0 PG 30.0 PG 30.3 PG Mean Corpuscular Hemoglobin Concent 34.7 % 34.4 % 35.0 % Red Cell Distribution Width 15.0 % 15.3 % 15.1 % Platelet Count 445 TH/MM3 453 TH/MM3 430 TH/MM3 Mean Platelet Volume 8.1 FL 7.7 FL 7.9 FL Neutrophils (%) (Auto) 85.1 % 82.5 % 86.6 % Lymphocytes (%) (Auto) 7.8 % 10.5 % 5.3 % Monocytes (%) (Auto) 6.9 % 6.6 % 7.8 % Eosinophils (%) (Auto) 0.2 % 0.3 % 0.2 % Basophils (%) (Auto) 0.0 % 0.1 % 0.1 % Neutrophils # (Auto) 9.9 TH/MM3 9.4 TH/MM3 10.0 TH/MM3 Lymphocytes # (Auto) 0.9 TH/MM3 1.2 TH/MM3 0.6 TH/MM3 Monocytes # (Auto) 0.8 TH/MM3 0.8 TH/MM3 0.9 TH/MM3 Eosinophils # (Auto) 0.0 TH/MM3 0.0 TH/MM3 0.0 TH/MM3 Basophils # (Auto) 0.0 TH/MM3 0.0 TH/MM3 0.0 TH/MM3 CBC Comment DIFF FINAL DIFF FINAL DIFF FINAL Differential Comment Blood Urea Nitrogen 26 MG/DL 20 MG/DL 19 MG/DL Creatinine 1.39 MG/DL 1.52 MG/DL 1.35 MG/DL Random Glucose 109 MG/DL 121 MG/DL 116 MG/DL Total Protein 4.8 GM/DL 5.5 GM/DL 5.1 GM/DL Albumin 1.9 GM/DL 2.2 GM/DL 1.9 GM/DL Calcium Level 7.1 MG/DL 7.7 MG/DL 7.5 MG/DL Alkaline Phosphatase 533 U/L 544 U/L 503 U/L Aspartate Amino Transf (AST/SGOT) 57 U/L 46 U/L 42 U/L Alanine Aminotransferase (ALT/SGPT) 30 U/L 29 U/L 27 U/L Total Bilirubin 1.6 MG/DL 1.8 MG/DL 1.6 MG/DL Sodium Level 139 MEQ/L 138 MEQ/L 137 MEQ/L Potassium Level 3.9 MEQ/L 4.3 MEQ/L 4.0 MEQ/L Chloride Level 107 MEQ/L 104 MEQ/L 105 MEQ/L Carbon Dioxide Level 21.7 MEQ/L 20.0 MEQ/L 21.7 MEQ/L Anion Gap 10 MEQ/L 14 MEQ/L 10 MEQ/L Estimat Glomerular Filtration Rate 49 ML/MIN 45 ML/MIN 51 ML/MIN Protein Corrected Calcium 8.4 MG/DL Lipase 187 U/L 204 U/L Lactic Acid Level 4.1 mmol/L Imaging Last Impressions GI Procedure 08/12/17 0000 Signed Impressions: Service Date/Time: Saturday, August 12, 2017 13:22 - CONCLUSION: ERCP as above. Krishna Genao MD Gall Bladder Ultrasound 08/11/17 0000 Signed Impressions: Service Date/Time: Friday, August 11, 2017 16:04 - CONCLUSION: 1. There appear to be a few small stones in the gallbladder. There is thickening of the gallbladder wall 5 mm. This suggests chronic gallbladder disease. 2. There is dilatation of the common bile duct a 10 mm. This suggest possible biliary tract obstruction. Recommend MRCP if clinically indicated. 3. There is some free fluid around the liver. Cristian Renee MD Cholangiopancreatography MRI 08/11/17 0000 Signed Impressions: Service Date/Time: Friday, August 11, 2017 17:28 - CONCLUSION: 1. Acute pancreatitis without ductal dilatation. Sludge in the gallbladder. Increasing generalized anasarca since prior exam from August 01. Abelardo Hawley MD Chest X-Ray 08/08/17 0000 Signed Impressions: Service Date/Time: Tuesday, August 08, 2017 10:28 - CONCLUSION: No acute disease. Bailey Gan MD Abdomen/Pelvis CT 08/08/17 0000 Signed Impressions: Service Date/Time: Tuesday, August 08, 2017 14:09 - CONCLUSION: 1. The examination demonstrates findings consistent with acute pancreatitis. There is fairly extensive inflammatory stranding around the pancreas with fluid tracking down to the right paracolic gutter. Comparison is made to the previous CT scan dated 08/01/17. The overall amount of inflammatory change around the pancreas and the fluid around the pancreas has significantly increased. No organized, drainable fluid collection is identified. 2. The patient is post right nephrectomy. 3. There are small bilateral effusions. Mumtaz Flor MD Abdomen X-Ray 08/07/17 0600 Signed Impressions: Service Date/Time: Monday, August 07, 2017 09:08 - CONCLUSION: 1. Benign-appearing KUB. Mumtaz Flor MD Objective Remarks General: NAD, AAOx3 Chest: Crackle at the right base Cardiac: Regular Abd: +BS, soft mildly distended, upper abdominal mild tenderness to palpation Ext: Mild bilateral pedal edema A/P Problem List: (1) Acute gallstone pancreatitis ICD Codes: K85.10 - Biliary acute pancreatitis without necrosis or infection Status: Acute Plan: Gallstone pancreatitis - Pt is a 76 y/o male with hyperlipidemia, BPH, hypothyroidism and chronic renal insufficiency who presented to the ED with complaints of N/V and upper abdominal pain that radiated to his back. - Pt had been planned for outpt cholecystectomy next week with Dr. Cali - Labs at admission revealed Lipase 56,593, Tbili 2.2, AST 1094, ALT 581 - CT Abd/pelvis (08/01/17) --> Acute pancreatitis and duodenitis. There is edema and scattered small collections of fluid without anything organized, thick walled or drainable. Suspected cholelithiasis although a stone is not discretely visible on today's CT. No ductal dilatation is demonstrated. 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 Sigmoid colon diverticulosis. No diverticulitis. No bowel obstruction. - MRCP (08/01/17) --> Findings again consistent with acute pancreatitis. Moderate amount of sludge in the gallbladder. Intrahepatic and extrahepatic biliary ducts within normal limits. - Cont. IV Levaquin and Flagyl - KUB (08/03) --> Mild gaseous distention of large bowel - KUB (08/04) --> read as benign - continue to monitor bowel function closely. given dose Relistor on 08/03 - (08/09 and 08/10) patient reported gag when trying to take in liquids. Speech evaluated no further recommendations. No difficulty with swallowing during speech eval. - (08/11) advanced to Full liquids - Pts had been requesting that pt have cholecystectomy during current admission. - In view of pt's pancreatitis, this seems unlikely. Surgery recommended waiting 4-6 weeks before cholecystectomy. - On 08/11 pts LFTs elevated again and it was felt that the pt was still passing sludge/stones - Pt underwent ERCP with sphincterotomy and balloon sweep on 08/12 --> cholangiogram was performed which showed small filling defect in the distal common bile ducts, sphincterotomy was performed with a sphincterotome, sweeping the duct with the balloon size 11.5 mm retrieve small stone, multiple sweep of the duct was negative with end of case included cholangiogram was negative for any filling defect - LFTs are improving today - Cont supportive care - Diet advanced to clear liquids on 08/13 and pt was tolerating this well on 08/14 - Pt has had increase cough over the last day, CXR (08/14) was negative for any acute changes. - Pt had an episode of questionable "seizure-like" activity last night. No Ativan was given. This reportedly lasted about 3.5 mins according to nursing documentation. Head CT was negative. The pt was sitting on the commode when this occurred but its unclear if he was having any abd pain, nausea, dizziness, palpitations. The pt does not recall specific of the events that occurred last night. Pts exact vital signs were not recorded. [facility] documentation reported that "VSS and that his O2 saturation was 99% on nonrebreather and then when taken off the mask he maintained his O2 sats on room air." Its not clear the etiology for the events that occurred last night. Possibly a vasovagal event vs. other. - Reglan has been stopped - Seizure precautions ordered - He has Ativan 1mg IV PRN anxiety already ordered - Pain control and anxiolytics PRN - Antiemetics PRN Constipation- resolved - encouraged patient to only use pain medication when needed - Dilaudid IV only for breakthrough pain - Ultram for pain - bowel regimen - encourage ambulation (2) Abdominal pain ICD Codes: R10.9 - Unspecified abdominal pain Status: Acute Plan: - See above Assessment and Plan Patient examined. Assessment and plan formulated with Ewa Gomez PA-C. I agree with the above. gallstone pancreatitis choledocholithiasis. s/p ercp and sphincterotomy probably syncope or vasovagal event last night advance diet and if kylee then d/c ivf. Ewa Gomez Aug 15, 2017 10:58 Foreign Dillon MD Aug 15, 2017 12:36
[2017-08-15 12:00] VITALS: BP 135/77; PULSE 74; RESP 18; TEMP 98.1; O2SAT 97
[2017-08-15 16:00] VITALS: BP 132/81; PULSE 80; RESP 16; TEMP 98.6; O2SAT 97
[2017-08-15] MEDS: ACETAMINOPHEN 325 MG TAB PO PRN (17:49)
[2017-08-15] MEDS: LORazepam 2 MG/ML VIAL IV PUSH PRN (18:58)
[2017-08-15 20:00] VITALS: BP 149/75; PULSE 79; RESP 18; TEMP 95.7; O2SAT 97
--- NOTE | 2017-08-15 20:02 | EKG ---
Date Performed: 08/15/2017 Time Performed: 05:29:24 PTAGE: 76 years EKG: Sinus rhythm with PVC(s). Septal T wave changes are nonspecific Low QRS voltages in limb leads Borderline ECG Sin ce the PREVIOUS TRACING , no significant change noted PREVIOUS TRACIN08/12/2017 10.18 DOCTOR: Tej Galarza Interpretating Date/Time 08/15/2017 19:59:52
[2017-08-15] MEDS: TERAZOSIN HCL 5 MG CAP PO SCH (20:39)
[2017-08-15] MEDS: ONDANSETRON HCL 4 MG/2 ML VIAL IV PUSH PRN (23:01)
[2017-08-16] VITALS: BP 133/60; PULSE 75; RESP 17; TEMP 97.8; O2SAT 96
[2017-08-16] MEDS: LISINOPRIL 10 MG TAB PO SCH (00:32)
[2017-08-16] MEDS: LEVOTHYROXINE SODIUM 50 MCG TAB PO SCH (04:55)
[2017-08-16 08:00] VITALS: BP 127/51; PULSE 76; RESP 18; TEMP 98; O2SAT 96
[2017-08-16] MEDS: POLYETHYLENE GLYCOL 17 GM PKG PO SCH (09:00)
[2017-08-16] MEDS: ALLOPURINOL 300 MG TAB PO SCH (09:02)
[2017-08-16] MEDS: ALPRAZolam 0.25 MG TAB PO SCH (09:02)
[2017-08-16] MEDS: PROMETHAZINE HCL 25 MG TAB PO SCH ×3 (09:03→17:00)
--- NOTE | 2017-08-16 09:16 | HHI.PR ---
Subjective Remarks Pt feeling much better today He had minimal coughing overnight, slept well He tolerated fill liquids and wants to advance his diet. Pt had a Chow placed yesterday because of the syncopal episode and wants this removed. Afebrile Objective Vitals Vital Signs Date Time Temp Pulse Resp B/P (MAP) Pulse Ox O2 Delivery O2 Flow Rate FiO2 08/16/17 08:00 98.0 76 18 127/51 (76) 96 08/16/17 00:00 97.8 75 17 133/60 (84) 96 08/15/17 20:00 95.7 79 18 149/75 (99) 97 08/15/17 16:00 98.6 80 16 132/81 (98) 97 08/15/17 12:00 98.1 74 18 135/77 (96) 97 Result Diagram: 08/15/17 0620 08/15/17 0622 Other Results Laboratory Tests Test 08/15/17 05:15 08/15/17 06:20 08/15/17 06:22 White Blood Count 11.4 TH/MM3 11.6 TH/MM3 Red Blood Count 3.34 MIL/MM3 3.07 MIL/MM3 Hemoglobin 10.0 GM/DL 9.3 GM/DL Hematocrit 29.2 % 26.5 % Mean Corpuscular Volume 87.3 FL 86.5 FL Mean Corpuscular Hemoglobin 30.0 PG 30.3 PG Mean Corpuscular Hemoglobin Concent 34.4 % 35.0 % Red Cell Distribution Width 15.3 % 15.1 % Platelet Count 453 TH/MM3 430 TH/MM3 Mean Platelet Volume 7.7 FL 7.9 FL Neutrophils (%) (Auto) 82.5 % 86.6 % Lymphocytes (%) (Auto) 10.5 % 5.3 % Monocytes (%) (Auto) 6.6 % 7.8 % Eosinophils (%) (Auto) 0.3 % 0.2 % Basophils (%) (Auto) 0.1 % 0.1 % Neutrophils # (Auto) 9.4 TH/MM3 10.0 TH/MM3 Lymphocytes # (Auto) 1.2 TH/MM3 0.6 TH/MM3 Monocytes # (Auto) 0.8 TH/MM3 0.9 TH/MM3 Eosinophils # (Auto) 0.0 TH/MM3 0.0 TH/MM3 Basophils # (Auto) 0.0 TH/MM3 0.0 TH/MM3 CBC Comment DIFF FINAL DIFF FINAL Differential Comment Blood Urea Nitrogen 20 MG/DL 19 MG/DL Creatinine 1.52 MG/DL 1.35 MG/DL Random Glucose 121 MG/DL 116 MG/DL Total Protein 5.5 GM/DL 5.1 GM/DL Albumin 2.2 GM/DL 1.9 GM/DL Calcium Level 7.7 MG/DL 7.5 MG/DL Alkaline Phosphatase 544 U/L 503 U/L Aspartate Amino Transf (AST/SGOT) 46 U/L 42 U/L Alanine Aminotransferase (ALT/SGPT) 29 U/L 27 U/L Total Bilirubin 1.8 MG/DL 1.6 MG/DL Sodium Level 138 MEQ/L 137 MEQ/L Potassium Level 4.3 MEQ/L 4.0 MEQ/L Chloride Level 104 MEQ/L 105 MEQ/L Carbon Dioxide Level 20.0 MEQ/L 21.7 MEQ/L Anion Gap 14 MEQ/L 10 MEQ/L Estimat Glomerular Filtration Rate 45 ML/MIN 51 ML/MIN Lactic Acid Level 4.1 mmol/L Lipase 204 U/L Imaging Last Impressions GI Procedure 08/12/17 0000 Signed Impressions: Service Date/Time: Saturday, August 12, 2017 13:22 - CONCLUSION: ERCP as above. Krishna Genao MD Gall Bladder Ultrasound 08/11/17 0000 Signed Impressions: Service Date/Time: Friday, August 11, 2017 16:04 - CONCLUSION: 1. There appear to be a few small stones in the gallbladder. There is thickening of the gallbladder wall 5 mm. This suggests chronic gallbladder disease. 2. There is dilatation of the common bile duct a 10 mm. This suggest possible biliary tract obstruction. Recommend MRCP if clinically indicated. 3. There is some free fluid around the liver. Cristian Renee MD Cholangiopancreatography MRI 08/11/17 0000 Signed Impressions: Service Date/Time: Friday, August 11, 2017 17:28 - CONCLUSION: 1. Acute pancreatitis without ductal dilatation. Sludge in the gallbladder. Increasing generalized anasarca since prior exam from August 01. Abelardo Hawley MD Chest X-Ray 08/08/17 0000 Signed Impressions: Service Date/Time: Tuesday, August 08, 2017 10:28 - CONCLUSION: No acute disease. Bailey Gan MD Abdomen/Pelvis CT 08/08/17 0000 Signed Impressions: Service Date/Time: Tuesday, August 08, 2017 14:09 - CONCLUSION: 1. The examination demonstrates findings consistent with acute pancreatitis. There is fairly extensive inflammatory stranding around the pancreas with fluid tracking down to the right paracolic gutter. Comparison is made to the previous CT scan dated 08/01/17. The overall amount of inflammatory change around the pancreas and the fluid around the pancreas has significantly increased. No organized, drainable fluid collection is identified. 2. The patient is post right nephrectomy. 3. There are small bilateral effusions. Mumtaz Flor MD Abdomen X-Ray 08/07/17 0600 Signed Impressions: Service Date/Time: Monday, August 07, 2017 09:08 - CONCLUSION: 1. Benign-appearing KUB. Mumtaz Flor MD Objective Remarks General: NAD, AAOx3 Chest: Crackle at the right base Cardiac: Regular Abd: +BS, soft nondistended, minimal RUQ tenderness Ext: Mild bilateral pedal edema A/P Problem List: (1) Acute gallstone pancreatitis ICD Codes: K85.10 - Biliary acute pancreatitis without necrosis or infection Status: Acute Plan: Gallstone pancreatitis - Pt is a 76 y/o male with hyperlipidemia, BPH, hypothyroidism and chronic renal insufficiency who presented to the ED with complaints of N/V and upper abdominal pain that radiated to his back. - Pt had been planned for outpt cholecystectomy next week with Dr. Cali - Labs at admission revealed Lipase 56,593, Tbili 2.2, AST 1094, ALT 581 - CT Abd/pelvis (08/01/17) --> Acute pancreatitis and duodenitis. There is edema and scattered small collections of fluid without anything organized, thick walled or drainable. Suspected cholelithiasis although a stone is not discretely visible on today's CT. No ductal dilatation is demonstrated. 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 Sigmoid colon diverticulosis. No diverticulitis. No bowel obstruction. - MRCP (08/01/17) --> Findings again consistent with acute pancreatitis. Moderate amount of sludge in the gallbladder. Intrahepatic and extrahepatic biliary ducts within normal limits. - Cont. IV Levaquin and Flagyl - KUB (08/03) --> Mild gaseous distention of large bowel - KUB (08/04) --> read as benign - continue to monitor bowel function closely. given dose Relistor on 08/03 - (08/09 and 08/10) patient reported gag when trying to take in liquids. Speech evaluated no further recommendations. No difficulty with swallowing during speech eval. - (08/11) advanced to Full liquids - Pts had been requesting that pt have cholecystectomy during current admission. - In view of pt's pancreatitis, this seems unlikely. Surgery recommended waiting 4-6 weeks before cholecystectomy. - On 08/11 pts LFTs elevated again and it was felt that the pt was still passing sludge/stones - Pt underwent ERCP with sphincterotomy and balloon sweep on 08/12 --> cholangiogram was performed which showed small filling defect in the distal common bile ducts, sphincterotomy was performed with a sphincterotome, sweeping the duct with the balloon size 11.5 mm retrieve small stone, multiple sweep of the duct was negative with end of case included cholangiogram was negative for any filling defect - LFTs are improving today - Cont supportive care - Diet advanced to clear liquids on 08/13 and pt was tolerating this well on 08/14 - Pt has had increase cough over the last day, CXR (08/14) was negative for any acute changes. - Pt had an episode of questionable "seizure-like" activity on 08/15. No Ativan was given. This reportedly lasted about 3.5 mins according to nursing documentation. Head CT was negative. The pt was sitting on the commode when this occurred but its unclear if he was having any abd pain, nausea, dizziness, palpitations. The pt does not recall specifics of the events that occurred on 08/15. Pts exact vital signs were not recorded. [facility] documentation reported that "VSS and that his O2 saturation was 99% on nonrebreather and then when taken off the mask he maintained his O2 sats on room air." Its not clear the etiology for the events that occurred last night. Possibly a vasovagal event vs. syncopal episode. - Reglan has been stopped - He has Ativan 1mg IV PRN anxiety already ordered - Pain control and anxiolytics PRN - Antiemetics PRN - Pt improving clinically - Advance to soft diet - Stop IVF - Remove Chow cath - Encourage ambulation/OOB to chair Constipation- resolved - encouraged patient to only use pain medication when needed - Dilaudid IV only for breakthrough pain - Ultram for pain - bowel regimen - encourage ambulation (2) Abdominal pain ICD Codes: R10.9 - Unspecified abdominal pain Status: Acute Plan: - See above Assessment and Plan Patient examined. Assessment and plan formulated with Ewa Gomez PA-C. I agree with the above. gallstone pancreatitis. s/p erpc with stone/sludge extraction. sphincterotomy tolerating the advance in diet d/c tomorrow home vs snf after PT eval. d/c ivf. Ewa Gomez Aug 16, 2017 09:16 Foreign Dillon MD Aug 16, 2017 13:20
[2017-08-16 10:01] LABS: ALBUMIN 2.3 GM/DL (3.4-5.0); AST (GOT) 52 U/L (15-37); BICARBONATE 24.2 MEQ/L (21.0-32.0); BLOOD UREA NITROGEN 13 MG/DL (7-18); CALCIUM 7.5 MG/DL (8.5-10.1); CHLORIDE 103 MEQ/L (98-107); CREATININE 1.19 MG/DL (0.60-1.30); GLOMERULAR FILTRATION RATE 59 ML/MIN (>89); GLUCOSE,RANDOM 99 MG/DL (74-106); SODIUM (NA) 138 MEQ/L (136-145)
[2017-08-16 10:08] LABS: ALKALINE PHOSPHATASE 530 U/L (45-117); ALT (GPT) 29 U/L (12-78); TOTAL BILIRUBIN ADULT 1.8 MG/DL (0.2-1.0); TOTAL PROTEIN 5.8 GM/DL (6.4-8.2)
[2017-08-16 12:00] VITALS: BP 129/73; PULSE 93; RESP 16; TEMP 98.2; O2SAT 97
--- NOTE | 2017-08-16 12:03 | HHI.FF ---
Face to Face Verification Diagnosis: (1) Acute gallstone pancreatitis (2) Abdominal pain Physical Therapy Order: Evaluate and Treat, Improve ambulation, Strength and gait training Home Health Nursing Order: Nursing assessment with vital signs Instructions: Check CBC and CMP on , 08/20, with results to the pts PCP, Dr. Mcghee. I have seen patient Nicola Alegria on 08/16/17. My clinical findings support the need for the requested home health care services because: Deconditioned w/ increased weakness I certify that my clinical findings support that this patient is homebound because: Unsteady gait/balance Ewa Gomez Aug 16, 2017 12:03 Yash Escobar DO Aug 18, 2017 14:47
[2017-08-16 16:00] VITALS: BP 127/61; PULSE 85; RESP 18; TEMP 98.2; O2SAT 96
[2017-08-16 20:00] VITALS: BP 120/79; PULSE 81; RESP 18; TEMP 99.4; O2SAT 96
[2017-08-16] MEDS: TERAZOSIN HCL 5 MG CAP PO SCH (20:57)
[2017-08-17 00:13] VITALS: BP 135/74; PULSE 76; RESP 20; TEMP 97.6; O2SAT 96
[2017-08-17] MEDS: LISINOPRIL 10 MG TAB PO SCH (00:46)
[2017-08-17] MEDS: LEVOTHYROXINE SODIUM 50 MCG TAB PO SCH (05:18)
[2017-08-17 08:00] VITALS: BP 131/82; PULSE 77; RESP 18; TEMP 97.9; O2SAT 95
[2017-08-17] MEDS: POLYETHYLENE GLYCOL 17 GM PKG PO SCH (09:00)
[2017-08-17] MEDS ORDERED: LISI10TA3 PO (09:02)
[2017-08-17] MEDS ORDERED: WALKER WHEELS/F1 MIS (09:03)
--- NOTE | 2017-08-17 09:19 | HHI.DS ---
Discharge Summary Admission Date Aug 01, 2017 at 03:13 Discharge Date: Aug 17, 2017 Admitting Diagnosis Gallstone pancreatitis (1) Acute gallstone pancreatitis Diagnosis: Principal ICD Codes: K85.10 - Biliary acute pancreatitis without necrosis or infection Status: Acute (2) Abdominal pain Diagnosis: Secondary ICD Codes: R10.9 - Unspecified abdominal pain Status: Acute Consultants Dr. Mick Cali - General Surgery Dr. Cat Medley/Dr. Racheal Lamb - GI Procedures ERCP with sphincterotomy and balloon sweep on 08/12 --> cholangiogram was performed which showed small filling defect in the distal common bile ducts, sphincterotomy was performed with a sphincterotome, sweeping the duct with the balloon size 11.5 mm retrieve small stone, multiple sweep of the duct was negative with end of case included cholangiogram was negative for any filling defect. Brief History This is pleasant 76-year-old white male who came to the emergency room last night after he starting having some nausea, vomiting, and upper abdominal pain that radiated into his back. He has been diagnosed with gallstones and was seen by a surgeon earlier this week on Thursday and has been scheduled for an elective cholecystectomy on 08/07/2017. He had seen Dr. Cali. He, however, came in to the ED last night with symptoms and had a markedly elevated lipase level of 56,000. He had mild elevation of his total bilirubin, as well as elevated AST, ALT and alkaline phosphatase. He has not vomited any since he was in the emergency room. He still has some pain in his abdomen that radiates into his back. No other acute complaints. No fever, chills or sweats. CBC/BMP: 08/15/17 0620 08/16/17 0855 Significant Findings Laboratory Tests Test 08/15/17 05:15 08/15/17 06:20 08/15/17 06:22 08/16/17 08:55 White Blood Count 11.4 TH/MM3 (4.0-11.0) 11.6 TH/MM3 (4.0-11.0) Red Blood Count 3.34 MIL/MM3 (4.50-5.90) 3.07 MIL/MM3 (4.50-5.90) Hemoglobin 10.0 GM/DL (13.0-17.0) 9.3 GM/DL (13.0-17.0) Hematocrit 29.2 % (39.0-51.0) 26.5 % (39.0-51.0) Platelet Count 453 TH/MM3 (150-450) Neutrophils (%) (Auto) 82.5 % (16.0-70.0) 86.6 % (16.0-70.0) Neutrophils # (Auto) 9.4 TH/MM3 (1.8-7.7) 10.0 TH/MM3 (1.8-7.7) Blood Urea Nitrogen 20 MG/DL (7-18) 19 MG/DL (7-18) Creatinine 1.52 MG/DL (0.60-1.30) 1.35 MG/DL (0.60-1.30) Random Glucose 121 MG/DL (74-106) 116 MG/DL (74-106) Total Protein 5.5 GM/DL (6.4-8.2) 5.1 GM/DL (6.4-8.2) 5.8 GM/DL (6.4-8.2) Albumin 2.2 GM/DL (3.4-5.0) 1.9 GM/DL (3.4-5.0) 2.3 GM/DL (3.4-5.0) Calcium Level 7.7 MG/DL (8.5-10.1) 7.5 MG/DL (8.5-10.1) 7.5 MG/DL (8.5-10.1) Alkaline Phosphatase 544 U/L (45-117) 503 U/L (45-117) 530 U/L (45-117) Aspartate Amino Transf (AST/SGOT) 46 U/L (15-37) 42 U/L (15-37) 52 U/L (15-37) Total Bilirubin 1.8 MG/DL (0.2-1.0) 1.6 MG/DL (0.2-1.0) 1.8 MG/DL (0.2-1.0) Carbon Dioxide Level 20.0 MEQ/L (21.0-32.0) Estimat Glomerular Filtration Rate 45 ML/MIN (>89) 51 ML/MIN (>89) 59 ML/MIN (>89) Lactic Acid Level 4.1 mmol/L (0.4-2.0) Lymphocytes (%) (Auto) 5.3 % (9.0-44.0) Lymphocytes # (Auto) 0.6 TH/MM3 (1.0-4.8) Imaging Last Impressions Head CT 08/15/17 0000 Signed Impressions: Service Date/Time: Tuesday, August 15, 2017 04:52 - CONCLUSION: Negative noncontrast CT Carroll Gonsales MD Chest X-Ray 08/15/17 0000 Signed Impressions: Service Date/Time: Tuesday, August 15, 2017 04:46 - CONCLUSION: No acute disease. Carroll Gonsales MD GI Procedure 08/12/17 0000 Signed Impressions: Service Date/Time: Saturday, August 12, 2017 13:22 - CONCLUSION: ERCP as above. Krishna Genao MD Gall Bladder Ultrasound 08/11/17 0000 Signed Impressions: Service Date/Time: Friday, August 11, 2017 16:04 - CONCLUSION: 1. There appear to be a few small stones in the gallbladder. There is thickening of the gallbladder wall 5 mm. This suggests chronic gallbladder disease. 2. There is dilatation of the common bile duct a 10 mm. This suggest possible biliary tract obstruction. Recommend MRCP if clinically indicated. 3. There is some free fluid around the liver. Cristian Renee MD Cholangiopancreatography MRI 08/11/17 0000 Signed Impressions: Service Date/Time: Friday, August 11, 2017 17:28 - CONCLUSION: 1. Acute pancreatitis without ductal dilatation. Sludge in the gallbladder. Increasing generalized anasarca since prior exam from August 01. Abelardo Hawley MD Abdomen/Pelvis CT 08/08/17 0000 Signed Impressions: Service Date/Time: Tuesday, August 08, 2017 14:09 - CONCLUSION: 1. The examination demonstrates findings consistent with acute pancreatitis. There is fairly extensive inflammatory stranding around the pancreas with fluid tracking down to the right paracolic gutter. Comparison is made to the previous CT scan dated 08/01/17. The overall amount of inflammatory change around the pancreas and the fluid around the pancreas has significantly increased. No organized, drainable fluid collection is identified. 2. The patient is post right nephrectomy. 3. There are small bilateral effusions. Mumtaz Flor MD Abdomen X-Ray 08/07/17 0600 Signed Impressions: Service Date/Time: Monday, August 07, 2017 09:08 - CONCLUSION: 1. Benign-appearing KUB. Mumtaz Flor MD PE at Discharge General: NAD, AAOx3 Chest: Crackle at the right base Cardiac: Regular Abd: +BS, soft nondistended, minimal RUQ tenderness Ext: Mild bilateral pedal edema Hospital Course Gallstone pancreatitis Abdominal pain Pt is a 76 y/o male with hyperlipidemia, BPH, hypothyroidism and chronic renal insufficiency who presented to the ED with complaints of N/V and upper abdominal pain that radiated to his back. Pt had been planned for outpt cholecystectomy next week with Dr. Cali. Labs at admission revealed Lipase 56, 593, Tbili 2.2, AST 1094, ALT 581. CT Abd/pelvis (08/01/17) --> Acute pancreatitis and duodenitis. There is edema and scattered small collections of fluid without anything organized, thick walled or drainable. Suspected cholelithiasis although a stone is not discretely visible on today's CT. No ductal dilatation is demonstrated. 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 Sigmoid colon diverticulosis. No diverticulitis. No bowel obstruction. MRCP (08/01/17) --> Findings again consistent with acute pancreatitis. Moderate amount of sludge in the gallbladder. Intrahepatic and extrahepatic biliary ducts within normal limits. GI and General surgery followed the pt throughout this admission. Pt was started on IV Levaquin and Flagyl (from 08/01/17-08/14/17). He was given IVF and pain control PRN. Pt had a prolonged admission due to continued symptoms of abdominal pain and nausea and developed ileus. KUB (08/03) --> Mild gaseous distention of large bowel. Pt was given dose Relistor on 08/03. He had some constipation issues during admission as well, felt to be related to pain meds. He was given Ultram for pain and bowel regimen with improvement. His diet was attempted to be advanced (08/09 and 08/10) but patient reported gagged when trying to take in liquids. Speech evaluated but he had no difficulty with swallowing during speech eval. On 08/11 his diet was advanced to Full liquids but his LFTs elevated again and it was felt that the pt was still passing sludge /stones. Pt underwent ERCP with sphincterotomy and balloon sweep on 08/12 --> cholangiogram was performed which showed small filling defect in the distal common bile ducts, sphincterotomy was performed with a sphincterotome, sweeping the duct with the balloon size 11.5 mm retrieve small stone, multiple sweep of the duct was negative with end of case included cholangiogram was negative for any filling defect. His LFTs have been improving. He has complained of a cough following the ERCP but CXR were negative for any acute findings. Pt was treated symptomatically with cough drops which did help. His diet was advanced to clear liquids on 08/13 and his diet was further advanced to full liquids, then soft foods on 08/16 and pt has tolerated this well. In view of pt's severe pancreatitis, Surgery recommended waiting 4-6 weeks before cholecystectomy. Pt had an episode of questionable "seizure-like" activity on 08/15. No Ativan was given. This reportedly lasted about 3.5 mins according to nursing documentation. Head CT was negative. The pt was sitting on the commode when this occurred but its unclear if he was having any abd pain, nausea, dizziness, palpitations. The pt does not recall specifics of the events that occurred on . Pts exact vital signs were not recorded. [facility] documentation reported that "VSS and that his O2 saturation was 99% on nonrebreather and then when taken off the mask he maintained his O2 sats on room air." Its not clear the etiology for the events that occurred last night. It was felt that most likely the pt had a vasovagal event.- Reglan was stopped. He did not have any further similar episodes prior to discharge. Pt had Lisinopril 10mg po daily added to his regimen for elevated BP during admission. This will be continued at discharge. Pt is to followup with his PCP, Dr. Mcghee, in 1 week, call for an appt Pt is to followup with Dr. Cali in 2 weeks He is to followup with [facility] in 2 weeks We will arrange for HHC/PT and will get a recheck of his labs on , 08/20 with results to his PCP. Pt Condition on Discharge: Stable Discharge Disposition: Disch w/ Home Health Serv Discharge Instructions DIET: Follow Instructions for: Heart Healthy Diet Speech Therapy-Diet Recommends: Soft, Other Activities you can perform: Regular-No Restrictions Follow up Referrals: Gastroenterology - 2 Weeks with Racheal Lamb MD PCP Follow-up - [address] Mcghee Surgical - 2 Weeks with Mick Cali MD New Medications: Walker with Front Wheels (Walker with Front Wheels) 1 Mis Mis EA .XX DIRECTED, #1 0 Refills Alprazolam (Xanax) 0.25 Mg Tab 0.25 MG PO Q8HR PRN for anxiety, #15 TAB 0 Refills Hydrocodone/Acetaminophen (Hydrocodone-Acetamin 5-325 mg) 5 Mg-325 Mg Tablet 1 TAB PO Q4H PRN for pain, #7 TAB 0 Refills Lisinopril (Lisinopril) 10 Mg Tab 10 MG PO DAILY@0100 for Blood Pressure Management, #30 TAB Promethazine (Phenergan) 25 Mg Tablet 25 MG PO Q8HR NEB PRN for nausea, #15 TAB 0 Refills Continued Medications: Allopurinol (Allopurinol) 300 Mg Tab 300 MG PO DAILY for Gout, #30 TAB 0 Refills Levothyroxine (Levothyroxine) 50 Mcg Tab 50 MCG PO DAILY for Thyroid, #30 TAB 0 Refills Terazosin (Terazosin) 5 Mg Cap 5 MG PO HS for Blood Pressure Management, #30 CAP 0 Refills Discontinued Medications: Ondansetron Odt (Zofran Odt) 4 Mg Tab 4 MG SL Q6HR PRN for Nausea/Vomiting, #7 TAB 0 Refills Additional Information Patient examined. Assessment and plan formulated with Ewa Gomez PA-C. I agree with the above. Ewa Gomez Aug 17, 2017 09:19 Yash Escobar DO Aug 18, 2017 00:40
[2017-08-17] MEDS: ALPRAZolam 0.25 MG TAB PO SCH (09:54)
[2017-08-17] MEDS: ALLOPURINOL 300 MG TAB PO SCH (09:54)
[2017-08-17] MEDS: PROMETHAZINE HCL 25 MG TAB PO SCH ×2 (09:55→15:16)
[2017-08-17] MEDS ORDERED: ALPR.25 PO (11:15)
[2017-08-17] MEDS ORDERED: HYDR-3516 PO (11:15)
[2017-08-17] MEDS ORDERED: PROM25TA10 PO (11:15)
[2017-08-17 12:00] VITALS: BP 117/67; PULSE 80; RESP 18; TEMP 97.8; O2SAT 98
== END 2017-08-17 16:05 | disposition home health service (06) | DRG 439 ==
LOC: NEPE 21:25 → NEDA 08-01 03:13 → N07A 08-01 04:25
PROVIDERS: ADMIT Hospitalist; ATTEND Hospitalist
PROC: 0FC98ZZ Extirpation of Matter from Common Bile Duct, Via Natural or Artificial Opening Endoscopic (ICD-10-PCS; principal; 2017-08-12 13:30)
DX: K85.10 Biliary acute pancreatitis without necrosis or infection (principal); K80.51 Calculus of bile duct without cholangitis or cholecystitis with obstruction; E87.0 Hyperosmolality and hypernatremia; K56.7 Ileus, unspecified; G40.89 Other seizures; I12.9 Hypertensive chronic kidney disease with stage 1 through stage 4 chronic kidney disease, or unspecified chronic kidney disease; K82.8 Other specified diseases of gallbladder; E03.9 Hypothyroidism, unspecified; E78.5 Hyperlipidemia, unspecified; N18.9 Chronic kidney disease, unspecified; M19.90 Unspecified osteoarthritis, unspecified site; Z90.5 Acquired absence of kidney; Z87.442 Personal history of urinary calculi; Z85.528 Personal history of other malignant neoplasm of kidney; Z85.820 Personal history of malignant melanoma of skin; Z80.9 Family history of malignant neoplasm, unspecified; N40.0 Benign prostatic hyperplasia without lower urinary tract symptoms; K57.30 Diverticulosis of large intestine without perforation or abscess without bleeding; K29.80 Duodenitis without bleeding; F41.9 Anxiety disorder, unspecified; R05 Cough
CPT/HCPCS: 70450; 71045; 74018; 74176; 74177; 74181; 74330; 76377; 76705; 80048; 80053; 80076; 81001; 82248; 83605; 83690; 83735; 84155; 85007; 85025; 85027; 93005; 94150; 96374; 96375; C1769; J0330; J0610; J1100; J1170; J1956; J2060; J2212; J2270; J2370; J2405; J2765; J3010; J7030; J7120; Q0169; Q9967

== ENCOUNTER 2017-10-16 10:15 | Observation (INO) | payer MEDICARE ==
[~2017-10-16] VITALS: Ht 167.6 cm; Wt 71.7 kg
[~2017-10-16 10:15] MED LIST changes: +ALLO100T PO; -ALLO300T2 PO; -ZOFR4TAB3 SL
[2017-10-16] MEDS ORDERED: ACETAMINOPHEN 1000 MG/100 ML 100 ML IV SCH (10:45)
[2017-10-16] MEDS ORDERED: metroNIDAZOLE 500 MG INJ 100 ML IV SCH (10:45)
[2017-10-16] MEDS ORDERED: LACTATED RINGER'S 1000 ML IV PRN (10:45)
[2017-10-16] MEDS ORDERED: VANCOMYCIN 1,250 MG/NS 250 ML (for 70-84 kg) IV SCH ×2 (10:45)
[2017-10-16] MEDS ORDERED: POVIDONE IODINE 5% (ANTISEPSIS KIT) 4 APPLICATIONS EACH NARE PRN (10:45)
[2017-10-16] MEDS ORDERED: SODIUM CHLORID 0.9% 500 ML IV PRN (10:45)
[2017-10-16] MEDS ORDERED: METOPROLOL TARTRATE 25 MG TAB PO PRN (10:45)
[2017-10-16] MEDS ORDERED: CHLORHEXIDINE GLUCONATE 2 % 1 PACK (2 CLOTHS) TOPICAL PRN (10:45)
[2017-10-16] MEDS ORDERED: SODIUM CHLOR 0.9% 250 ML INJ 0 ML ONE (10:53)
[2017-10-16] MEDS ORDERED: VANCOMYCIN HCL 1000 MG VIAL ONE (10:54)
[2017-10-16] MEDS ORDERED: PROPOFOL 200 MG/20 ML AMP IV ONE (13:03)
[2017-10-16] MEDS ORDERED: NEOSTIGMINE 5 MG/5 ML SYRINGE IV PUSH ONE (13:03)
[2017-10-16] MEDS ORDERED: GLYCOPYRROLATE 1 MG/5 ML SYRINGE IV PUSH ONE (13:03)
[2017-10-16] MEDS ORDERED: ROCURONIUM INJ 50 MG/5 ML SYRINGE IV PUSH ONE (13:03)
[2017-10-16] MEDS ORDERED: LIDOCAINE HCL 1% PF 5 ML SYRINGE OTHER ONE (13:03)
[2017-10-16] MEDS ORDERED: ePHEDrine/NS 25 MG/5 ML SYRINGE IV ONE (13:03)
[2017-10-16] MEDS ORDERED: LACTATED RINGER'S 1000 ML INJ 1,000 ML IV ONE (13:03)
[2017-10-16] MEDS ORDERED: ONDANSETRON HCL 4 MG/2 ML VIAL IV PUSH ONE (13:03)
[2017-10-16] MEDS ORDERED: PHENYLEPH/NS 1000 MCG/10 ML SYR IV ONE (13:03)
[2017-10-16] MEDS ORDERED: BUPIVACAINE/EPINEPHRINE 0.25% 50 ML VIAL ONE (14:23)
[2017-10-16] MEDS ORDERED: SUGAMMADEX SODIUM 200 MG/2 ML VIAL IV PUSH ONE (17:32)
[2017-10-16] MEDS ORDERED: DO NOT ADM ANY ANTICOAGULANT DRUGS PRN (19:35)
[2017-10-16] MEDS: D5-1/2 NS + KCL 20 MEQ INJ 1,000 ML IV SCH ×2 (19:37→21:00)
[2017-10-16] MEDS ORDERED: MORPHINE SULFATE 4 MG/ML INJ ONE (19:41)
[2017-10-16] MEDS ORDERED: NALOXONE HCL 0.4 MG/ML AMP IV PUSH PRN (19:45)
[2017-10-16] MEDS ORDERED: ACETAMINOPHEN 325 MG TAB PO PRN (19:45)
[2017-10-16] MEDS ORDERED: ONDANSETRON ODT 4 MG TAB PO PRN (19:45)
[2017-10-16] MEDS ORDERED: diphenhydrAMINE HCL 50 MG/ML VIAL IV PUSH PRN (19:45)
[2017-10-16] MEDS ORDERED: Post-op Orders (for Pharmacy) XX ONE (19:45)
[2017-10-16] MEDS ORDERED: SODIUM CHLORIDE 0.9% FLUSH 10 ML FLUSH IV FLUSH PRN (19:45)
[2017-10-16] MEDS ORDERED: *morphine SULFATE 4 MG/ML PERIprocedure ONLY ONE ×2 (19:55→20:34)
[2017-10-16] MEDS ORDERED: MEPERIDINE HCL 50 MG/ML VIAL ONE (20:02)
[2017-10-16] MEDS ORDERED: ONDANSETRON HCL 4 MG/2 ML VIAL ONE (20:52)
[2017-10-16] MEDS: SODIUM CHLORIDE 0.9% FLUSH 10 ML FLUSH IV FLUSH SCH (21:00)
[2017-10-16] MEDS: TERAZOSIN HCL 5 MG CAP PO SCH (21:00)
[2017-10-16] MEDS: ACETAMINOPHEN/HYDROcodone 325 MG/5 MG TAB PO PRN (23:03)
[2017-10-17] VITALS: BP 127/68; PULSE 78; RESP 17; TEMP 96.5; O2SAT 98
[2017-10-17] MEDS: LEVOTHYROXINE SODIUM 50 MCG TAB PO SCH (05:38)
[2017-10-17 07:31] LABS: AUTOMATED NEUTROPHIL # 5.3 TH/MM3 (1.8-7.7); BASOPHIL % 0.3 % (0.0-2.0); EOSINOPHIL # 0.1 TH/MM3 (0-0.4); EOSINOPHIL % 0.8 % (0.0-4.0); HEMOGLOBIN 9.8 GM/DL (13.0-17.0); LYMPH % 12.5 % (9.0-44.0); LYMPHOCYTE # 0.9 TH/MM3 (1.0-4.8); MEAN CELL VOLUME 86.7 FL (80.0-100.0); MEAN CORPUSCULAR HEMOGLOBIN 29.2 PG (27.0-34.0); MEAN CORPUSCULAR HGB CONC 33.7 % (32.0-36.0); MEAN PLATELET VOLUME 7.9 FL (7.0-11.0); MONO % 8.7 % (0.0-8.0); MONOCYTE # 0.6 TH/MM3 (0-0.9); NEUT % 77.7 % (16.0-70.0); PLATELET COUNT 187 TH/MM3 (150-450); RED BLOOD COUNT 3.34 MIL/MM3 (4.50-5.90); RED CELL DISTRIBUTION WIDTH 14.3 % (11.6-17.2); WHITE BLOOD COUNT 6.9 TH/MM3 (4.0-11.0)
[2017-10-17 07:54] LABS: ALBUMIN 2.8 GM/DL (3.4-5.0); AST (GOT) 74 U/L (15-37); BICARBONATE 25.3 MEQ/L (21.0-32.0); BLOOD UREA NITROGEN 20 MG/DL (7-18); CHLORIDE 106 MEQ/L (98-107); CREATININE 1.55 MG/DL (0.60-1.30); GLOMERULAR FILTRATION RATE 44 ML/MIN (>89); GLUCOSE,RANDOM 132 MG/DL (74-106); SODIUM (NA) 139 MEQ/L (136-145)
[2017-10-17 07:55] LABS: ALT (GPT) 47 U/L (12-78)
[2017-10-17 07:58] LABS: ALKALINE PHOSPHATASE 118 U/L (45-117); TOTAL BILIRUBIN ADULT 0.6 MG/DL (0.2-1.0)
[2017-10-17 08:00] VITALS: BP_SYST 122; BP_SYST 170; BP_DIAS 77; BP_DIAS 83; PULSE 46; PULSE 94; RESP 17; RESP 19; TEMP 97.6; TEMP 99; O2SAT 96; O2SAT 97
[2017-10-17] MEDS: SODIUM CHLORIDE 0.9% FLUSH 10 ML FLUSH IV FLUSH SCH ×2 (09:00→20:27)
[2017-10-17] MEDS: PRAVASTATIN SOD 40 MG TAB PO SCH (09:26)
[2017-10-17] MEDS: ALLOPURINOL 100 MG TAB PO SCH (09:27)
[2017-10-17] MEDS: ACETAMINOPHEN/HYDROcodone 325 MG/5 MG TAB PO PRN ×3 (09:30→17:15)
[2017-10-17 12:00] VITALS: BP 130/71; PULSE 96; RESP 17; TEMP 97.9; O2SAT 97
[2017-10-17] MEDS ORDERED: BENZOCAINE 6 MG/MENTHOL 10 MG LOZENGE BUCCAL PRN (13:00)
--- NOTE | 2017-10-17 13:00 | HHI.PR ---
Subjective Subjective Notes C/o sore throat. Otherwise feeling well. Tolerated breakfast and + flatus. His is at bedside. Objective Vitals/I&O Vital Signs Date Time Temp Pulse Resp B/P (MAP) Pulse Ox O2 Delivery O2 Flow Rate FiO2 10/17/17 08:00 99.0 94 19 122/77 (92) 96 10/16/17 21:00 Room Air 10/16/17 19:45 2 Labs Laboratory Tests Test 10/17/17 06:30 White Blood Count 6.9 Red Blood Count 3.34 Hemoglobin 9.8 Hematocrit 29.0 Mean Corpuscular Volume 86.7 Mean Corpuscular Hemoglobin 29.2 Mean Corpuscular Hemoglobin Concent 33.7 Red Cell Distribution Width 14.3 Platelet Count 187 Mean Platelet Volume 7.9 Neutrophils (%) (Auto) 77.7 Lymphocytes (%) (Auto) 12.5 Monocytes (%) (Auto) 8.7 Eosinophils (%) (Auto) 0.8 Basophils (%) (Auto) 0.3 Neutrophils # (Auto) 5.3 Lymphocytes # (Auto) 0.9 Monocytes # (Auto) 0.6 Eosinophils # (Auto) 0.1 Basophils # (Auto) 0.0 CBC Comment DIFF FINAL Differential Comment Blood Urea Nitrogen 20 Creatinine 1.55 Random Glucose 132 Total Protein 6.0 Albumin 2.8 Calcium Level 8.0 Alkaline Phosphatase 118 Aspartate Amino Transf (AST/SGOT) 74 Alanine Aminotransferase (ALT/SGPT) 47 Total Bilirubin 0.6 Sodium Level 139 Potassium Level 4.4 Chloride Level 106 Carbon Dioxide Level 25.3 Anion Gap 8 Estimat Glomerular Filtration Rate 44 Narrative Exam No distress. Abd: moderate distention, moderately bilious output from LIO drain A/P Assessment and Plan POD 1 s/p lap julian and lysis of adhesions. Stable. Labs ok. BIlious output from LIO drain. Will monitor LIO output. Depending on amt and character of LIO output may be able to be discharged with drain vs stay in hospital with consideration for ERCP. Mick Cali MD October 17, 2017 13:00
[2017-10-17 16:00] VITALS: BP 107/56; PULSE 84; RESP 18; TEMP 98.5; O2SAT 97
[2017-10-17 16:09] VITALS: O2SAT 97
[2017-10-17] MEDS: D5-1/2 NS + KCL 20 MEQ INJ 1,000 ML IV SCH (17:27)
[2017-10-17 20:00] VITALS: BP 110/61; PULSE 83; RESP 18; TEMP 99.4; O2SAT 97
[2017-10-17] MEDS: TERAZOSIN HCL 5 MG CAP PO SCH (20:26)
[2017-10-18] VITALS: BP 118/61; PULSE 72; RESP 18; TEMP 99.5; O2SAT 97
[2017-10-18] MEDS: ACETAMINOPHEN/HYDROcodone 325 MG/5 MG TAB PO PRN ×5 (03:32→20:51)
[2017-10-18 04:00] VITALS: BP 122/65; PULSE 73; RESP 18; TEMP 98.9; O2SAT 97
[2017-10-18] MEDS: LEVOTHYROXINE SODIUM 50 MCG TAB PO SCH (04:22)
[2017-10-18 08:00] VITALS: BP 125/69; PULSE 82; RESP 17; TEMP 98.3; O2SAT 97
[2017-10-18] MEDS: SODIUM CHLORIDE 0.9% FLUSH 10 ML FLUSH IV FLUSH SCH ×2 (08:00→20:52)
[2017-10-18] MEDS: PRAVASTATIN SOD 40 MG TAB PO SCH (08:00)
[2017-10-18] MEDS: ALLOPURINOL 100 MG TAB PO SCH (08:00)
[2017-10-18] MEDS: D5-1/2 NS + KCL 20 MEQ INJ 1,000 ML IV SCH (11:49)
[2017-10-18 12:00] VITALS: BP 127/65; PULSE 73; RESP 17; TEMP 97.8; O2SAT 96
--- NOTE | 2017-10-18 13:51 | HHI.PR ---
Subjective Subjective Notes pt c/o increasing abdominal pain states does not like hospital food but ate cereal earlier without problem Objective Vitals/I&O Vital Signs Date Time Temp Pulse Resp B/P (MAP) Pulse Ox O2 Delivery O2 Flow Rate FiO2 10/18/17 12:00 97.8 73 17 127/65 (85) 96 10/16/17 21:00 Room Air 10/16/17 19:45 2 Abdomen: Post-op tenderness Narrative Exam tracy serosang Wound Wound : Wound Location: Abdomen Appearance: Clean & Dry A/P Assessment and Plan s/p lap julian normal post op changes will keep overnight check labs in am Matthieu Leigh MD October 18, 2017 13:51
[2017-10-18] MEDS ORDERED: MORPHINE SULFATE 2 MG/ML SYRINGE IV PUSH PRN (14:00)
[2017-10-18 16:00] VITALS: BP 127/67; PULSE 81; RESP 18; TEMP 98.4; O2SAT 97
[2017-10-18 20:00] VITALS: BP 148/80; PULSE 77; RESP 20; TEMP 98.2; O2SAT 97
[2017-10-18] MEDS: TERAZOSIN HCL 5 MG CAP PO SCH (20:51)
[2017-10-18] MEDS ORDERED: traZODone HCL 50 MG TAB PO SCH (21:00)
[2017-10-19] VITALS: BP 145/78; PULSE 84; RESP 18; TEMP 98.7; O2SAT 95
[2017-10-19] MEDS: ACETAMINOPHEN/HYDROcodone 325 MG/5 MG TAB PO PRN ×2 (01:14→05:03)
[2017-10-19] MEDS: LEVOTHYROXINE SODIUM 50 MCG TAB PO SCH (05:03)
[2017-10-19 08:00] VITALS: BP 139/74; PULSE 75; RESP 18; TEMP 97.6; O2SAT 97
[2017-10-19] MEDS: SODIUM CHLORIDE 0.9% FLUSH 10 ML FLUSH IV FLUSH SCH (08:31)
[2017-10-19] MEDS: ALLOPURINOL 100 MG TAB PO SCH (08:33)
[2017-10-19] MEDS: PRAVASTATIN SOD 40 MG TAB PO SCH (08:33)
[2017-10-19] MEDS: D5-1/2 NS + KCL 20 MEQ INJ 1,000 ML IV SCH (08:34)
[2017-10-19 12:00] VITALS: BP 124/70; PULSE 69; RESP 19; TEMP 98; O2SAT 95
--- NOTE | 2017-10-19 12:39 | HHI.PR ---
Subjective Subjective Notes Patient feels much better today; minimal pain; passing flatus and tolerating his diet. Objective Vitals/I&O Vital Signs Date Time Temp Pulse Resp B/P (MAP) Pulse Ox O2 Delivery O2 Flow Rate FiO2 10/19/17 12:00 98.0 69 19 124/70 (88) 95 10/16/17 21:00 Room Air 10/16/17 19:45 2 Cardiovascular: Regular Lungs: Clear Abdomen: Non-distended, Post-op tenderness Extremities: No edema A/P Assessment and Plan S/P lap julian with drain still in place; slightly bilious but much less volume. He is doing well overall with no complications. Plan: D/C to home today; office in the next two days to see Dr. Cali. Johan Hill MD October 19, 2017 12:39
--- NOTE | 2017-10-19 12:44 | HHI.DS ---
Discharge Summary Admission Date October 16, 2017 at 19:40 Discharge Date: October 19, 2017 Admitting Diagnosis Procedures Laparoscopic cholecystectomy Brief History Came in for elective LC after gallstone pancreatitis. CBC/BMP: 10/17/17 0630 10/17/17 0630 Significant Findings Laboratory Tests Test 10/17/17 06:30 Red Blood Count 3.34 MIL/MM3 (4.50-5.90) Hemoglobin 9.8 GM/DL (13.0-17.0) Hematocrit 29.0 % (39.0-51.0) Neutrophils (%) (Auto) 77.7 % (16.0-70.0) Monocytes (%) (Auto) 8.7 % (0.0-8.0) Lymphocytes # (Auto) 0.9 TH/MM3 (1.0-4.8) Blood Urea Nitrogen 20 MG/DL (7-18) Creatinine 1.55 MG/DL (0.60-1.30) Random Glucose 132 MG/DL (74-106) Total Protein 6.0 GM/DL (6.4-8.2) Albumin 2.8 GM/DL (3.4-5.0) Calcium Level 8.0 MG/DL (8.5-10.1) Alkaline Phosphatase 118 U/L (45-117) Aspartate Amino Transf (AST/SGOT) 74 U/L (15-37) Estimat Glomerular Filtration Rate 44 ML/MIN (>89) PE at Discharge Lungs: clear Abd: benign Wounds ok tracy serosang Hospital Course Did will post op with no complications; just longer, more painful recovery due to significant disease. Pt Condition on Discharge: Good Discharge Disposition: Discharge Home Discharge Instructions DIET: Follow Instructions for: As Tolerated, No Restrictions Speech Therapy-Diet Recommends: Regular Activities you can perform: Regular-No Restrictions Johan Hill MD October 19, 2017 12:44
--- NOTE | 2017-10-20 12:08 | PD.OP ---
cc: Mick Cali MD Operative Report Date of Surgery: October 16, 2017 Preoperative Diagnosis: (1) Gallstone pancreatitis (2) Cholelithiasis Postoperative Diagnosis: (1) Cholelithiasis (2) Gallstone pancreatitis Procedure: Laparoscopic cholecystectomy and laparoscopic lysis of adhesions Anesthesia: General Surgeon: Mick Cali Clinical Trial Assistant(s): Primo GUZMAN Operation and Findings: Complications: None apparent EBL: 100cc Operative findings: The patient had previous open right nephrectomy with large right transverse subcostal incision. Omental adhesions to the anterior abdominal wall and liver. Extremely indurated gallbladder especially the area of the infundibulum. Cystic duct never able to be visualized. Gallbladder densely adherent to common bile duct and right hepatic duct. Gallbladder amputated at the infundibulum taking meticulous care to avoid common duct. Gallbladder contents included clear bile, purulent fluid, gallstones. Procedure in detail: The patient was taken to the operating room and placed in the supine position. General endotracheal anesthesia was induced. The abdomen was prepped and draped in usual sterile fashion and a surgical timeout was performed to verify correct patient procedure and site. Appropriate perioperative antibiotics were administered. Local anesthetic was injected in the skin and subcutaneous tissue in the left upper abdomen and a 5 mm incision performed. The abdomen was entered using the Optiview 5 mm trocar with direct laparoscopic visualization. The abdomen was then insufflated to 15 mmHg with CO2 gas which the patient tolerated well. Next a 5 mm port was placed in the left midabdomen. There were omental adhesions to the falciform and the entire right upper quadrant abdominal wall completely obscuring the liver and gallbladder. These adhesions were carefully taken down with laparoscopic scissors using cautery judiciously. A 5 mm port was then placed in the right lateral abdomen and another just above the umbilicus. A 12 mm port placed in the epigastrium. The patient was placed in reverse Trendelenburg position and turned slightly to the left. The gallbladder still was not visible due to omental adhesions to the liver. These were taken down with electrocautery and bluntly with the suction educational audiologist. The gallbladder wall was very thickened and indurated in the gallbladder enlarged. Initially the majority of the body the gallbladder was visible and was elevated. The gallbladder was inadvertently entered with spillage of clear bile and a small amount of purulent fluid. This was suctioned. Prolonged careful dissection using multiple instruments revealed the inferior border of the gallbladder near the infundibulum. The area of the calvin hepatis was indurated as well in the gallbladder was found to be densely adherent to the common hepatic and right hepatic ducts. The gallbladder had been entered incidentally in the infundibulum. Due to the severity of inflammation in proximity to the calvin hepatis the cystic duct was unable to be identified and an Endoloop was unable to be fully placed around the cut edge of the infundibulum. After the infundibulum was transected the gallbladder was removed using the Endo Catch bag. There was not any obvious bile leakage. The entire right upper quadrant was copiously irrigated and there was appropriate hemostasis with assistance of Surgicel snow. A 19 Faroese round drain was placed through the right lateral 5 mm port site. Trochars were then removed and the abdomen allowed to desufflate. The fascia at the 12 mm port site was closed with 0 Vicryl suture. Skin was closed with subcuticular 4-0 Monocryl as well as Dermabond. The patient tolerated the procedure well and was extubated and taken to PACU in stable condition. All sponge and instrument counts were correct. Mick Cali MD October 20, 2017 12:08
== END 2017-10-19 13:04 | disposition home or self-care (01) ==
LOC: HSDC 10:15 → N07A 19:40
PROVIDERS: ADMIT Surgery; ATTEND Surgery
DX: K85.10 Biliary acute pancreatitis without necrosis or infection (principal); K80.12 Calculus of gallbladder with acute and chronic cholecystitis without obstruction; K66.0 Peritoneal adhesions (postprocedural) (postinfection); R10.9 Unspecified abdominal pain; J02.9 Acute pharyngitis, unspecified; Z90.5 Acquired absence of kidney
CPT/HCPCS: 00790; 47562; 80053; 85025; 88304; 94150; 96365; 96366; G0378; J0131; J2175; J2270; J2370; J2405; J2710; J3010; J3370; J3480; J7050; J7120